=== PATIENT | male | born 1940 | race Caucasian/White ===

== ENCOUNTER → 2016-06-25 | Outpatient (CLI) | payer MEDICARE, OTHER ==
[~2016-06-25] MED LIST: ASPI81CH43 PO; CLOP75TA28 PO; DYA375C PO; LANS15CA21 PO; LORA-205 PO; RAMI2.5T PO; SIMV40TA96 PO
[2016-06-25 10:30] VITALS: BP 141/90
[2016-06-25 10:55] VITALS: BP 133/84
[2016-06-25 16:32] LABS: Basophils # (auto) 0 uL; Basophils % (auto) 0.5 % (0.0-2.0); Eosinophils # (auto) 0.1 uL; Hematocrit 41.7 % (41.0-53.0); Hemoglobin 13.9 g/dL (13.5-17.5); Lymphocytes # (auto) 1.3 uL; Lymphocytes % (auto) 26.9 % (10.0-50.0); Mean Corpuscular Hemoglobin 31.9 pg (28.0-32.0); Mean Corpuscular Hgb Conc. 33.4 g/dL (32.0-36.0); Mean Corpuscular Volume 95.4 fL (80.0-100.0); Mean Platelet Volume 8.6 fL (7.4-10.4); Monocytes # (auto) 0.5 uL; Monocytes % (auto) 11.2 % (0.0-12.0); Neutrophils # (auto) 2.8 uL; Neutrophils % (auto) 59.4 % (37.0-80.0); Platelet Count (auto) 239 10^3/uL (140-450); Red Cell Distribution Width 13.3 % (11.6-16.0); White Blood Cell 4.7 10^3/uL (4.4-10.8)
[2016-06-25 16:41] LABS: BUN/Creatinine Ratio 21.4; Calcium 9.4 mg/dL (8.5-10.1)
[2016-06-25 16:52] LABS: INR 1.04 (0.9-1.15); Prothrombin Time 10.7 sec (9.37-12.3)
== END | disposition home or self-care (01) ==
LOC: Rad HDHVI 10:13
PROVIDERS: ATTEND Internal Medicine Cardiovascular Disease
DX: I10 Essential (primary) hypertension (principal); D64.9 Anemia, unspecified; R79.1 Abnormal coagulation profile
CPT/HCPCS: 36415; 71020; 80048; 85025; 85610; 85730; G0463

== ENCOUNTER → 2016-06-26 | Day surgery (SDC) | payer MEDICARE, OTHER ==
[~2016-06-26] VITALS: Ht 182.9 cm; Wt 96.6 kg
[~2016-06-26] MED LIST changes: +ANGIOMAX 250 MG VIAL IV ONE; +LIDOCAINE 2%HCL (LOCAL ANESTH.) INJ 20ML MDV ONE; +MIDAZOLAM HCL 1MG/1ML-2 ML VIAL ONE; +SODIUM CHL 0.9% 0 ML ONE; +fentaNYL CITRATE 100 MCG/2 ML VL ONE
== END | disposition home or self-care (01) ==
LOC: CATH 10:58
PROVIDERS: ATTEND Internal Medicine Cardiovascular Disease
DX: I70.1 Atherosclerosis of renal artery (principal); T82.897A Other specified complication of cardiac prosthetic devices, implants and grafts, initial encounter; F10.99 Alcohol use, unspecified with unspecified alcohol-induced disorder; Z87.891 Personal history of nicotine dependence
CPT/HCPCS: 36252; C1760; C1769; C1894; J2250; J3010

== ENCOUNTER → 2016-08-04 | Outpatient (CLI) | payer MEDICARE, OTHER ==
[~2016-08-04] MED LIST changes: -ANGIOMAX 250 MG VIAL IV ONE; -LIDOCAINE 2%HCL (LOCAL ANESTH.) INJ 20ML MDV ONE; -MIDAZOLAM HCL 1MG/1ML-2 ML VIAL ONE; -SODIUM CHL 0.9% 0 ML ONE; -fentaNYL CITRATE 100 MCG/2 ML VL ONE
[2016-08-04 11:50] VITALS: BP 128/89
[2016-08-04 12:25] VITALS: BP 134/88
[2016-08-04 17:42] LABS: Basophils # (auto) 0 uL; Basophils % (auto) 0.4 % (0.0-2.0); Eosinophils # (auto) 0.1 uL; Monocytes # (auto) 0.6 uL; Neutrophils # (auto) 3.1 uL; Red Cell Distribution Width 13.9 % (11.6-16.0); White Blood Cell 5.1 10^3/uL (4.4-10.8)
[2016-08-04 17:45] LABS: Urine Bilirubin Negative (Negative); Urine Blood Negative /uL (Negative); Urine Color Yellow (Yellow); Urine Glucose Normal (Normal); Urine Ketone Negative (Negative); Urine Nitrite Negative (Negative); Urine Urobilinogen Normal (Negative); Urine pH 5.5 (5.0-8.0)
[2016-08-04 17:50] LABS: Eosinophils % (auto) 2.2 % (0.0-7.0); Hemoglobin 13.8 g/dL (13.5-17.5); Lymphocytes # (auto) 1.4 uL; Lymphocytes % (auto) 26.8 % (10.0-50.0); Mean Corpuscular Hemoglobin 31.7 pg (28.0-32.0); Mean Corpuscular Hgb Conc. 32.9 g/dL (32.0-36.0); Mean Corpuscular Volume 96.3 fL (80.0-100.0); Mean Platelet Volume 8.9 fL (7.4-10.4); Monocytes % (auto) 10.9 % (0.0-12.0); Neutrophils % (auto) 59.7 % (37.0-80.0); Platelet Count (auto) 254 10^3/uL (140-450)
[2016-08-04 17:56] LABS: Partial Thromboplastin Time 25.2 sec (22.64-33.71); Prothrombin Time 10.3 sec (9.37-12.3)
[2016-08-04 18:57] LABS: Albumin 3.9 g/dL (3.4-5.0); BUN/Creatinine Ratio 20.2; Calcium 9.1 mg/dL (8.5-10.1); Potassium 3.7 mmol/L (3.5-5.1)
[2016-08-04 18:59] LABS: Bilirubin, Total 0.5 mg/dL (0.2-1.0); Total Protein 7.7 g/dL (6.4-8.2)
== END | disposition home or self-care (01) ==
LOC: Rad HDHVI 11:49
PROVIDERS: ATTEND Internal Medicine Cardiovascular Disease
DX: I25.10 Atherosclerotic heart disease of native coronary artery without angina pectoris (principal); I10 Essential (primary) hypertension; R49.1 Aphonia; D64.9 Anemia, unspecified; N39.0 Urinary tract infection, site not specified; H25.12 Age-related nuclear cataract, left eye; Z79.01 Long term (current) use of anticoagulants
CPT/HCPCS: 36415; 80053; 81003; 85025; 85610; 85730; 87086; G0463

== ENCOUNTER → 2016-08-25 | Outpatient (CLI) | payer MEDICARE, OTHER ==
[2016-08-25 13:11] LABS: BUN/Creatinine Ratio 19.1; Calcium 9.1 mg/dL (8.5-10.1); Potassium 3.9 mmol/L (3.5-5.1); Uric Acid 5.7 mg/dL (3.5-7.2)
== END | disposition home or self-care (01) ==
LOC: CHF HDHVI 09:51
PROVIDERS: ATTEND Internal Medicine Cardiovascular Disease
DX: I10 Essential (primary) hypertension (principal); M10.9 Gout, unspecified
CPT/HCPCS: 36415; 80048; 84550; G0463

== ENCOUNTER → 2016-10-03 | Outpatient (CLI) | payer MEDICARE, OTHER ==
[2016-10-03 16:38] LABS: BUN/Creatinine Ratio 20.4; Calcium 9.6 mg/dL (8.5-10.1); Potassium 3.8 mmol/L (3.5-5.1); Uric Acid 3.4 mg/dL (3.5-7.2)
== END | disposition home or self-care (01) ==
LOC: LAB 10:03
PROVIDERS: ATTEND Internal Medicine Cardiovascular Disease
DX: I10 Essential (primary) hypertension (principal); M10.9 Gout, unspecified
CPT/HCPCS: 36415; 80048; 84550

== ENCOUNTER → 2016-12-30 | Outpatient (CLI) | payer MEDICARE, OTHER | END | disposition home or self-care (01) | LOC: Rad HDHVI 16:05 | PROVIDERS: ATTEND Internal Medicine Cardiovascular Disease | DX: I50.43 Acute on chronic combined systolic (congestive) and diastolic (congestive) heart failure (principal); E78.00 Pure hypercholesterolemia, unspecified | CPT/HCPCS: 93306 ==

== ENCOUNTER → 2017-01-02 | Outpatient (CLI) | payer MEDICARE, OTHER ==
[~2017-01-02] MED LIST changes: +ADENOSINE 79 MG in GIVE UN-DILUTED 0 ML IV ONE; +ADENOSINE 90 MG/30 ML INJ IV ONE
== END | disposition home or self-care (01) ==
LOC: Rad HDHVI 09:37
PROVIDERS: ATTEND Internal Medicine Cardiovascular Disease
DX: I25.10 Atherosclerotic heart disease of native coronary artery without angina pectoris (principal); E78.00 Pure hypercholesterolemia, unspecified; I25.2 Old myocardial infarction; I10 Essential (primary) hypertension
CPT/HCPCS: 78452; 93005; 96374; 96375; A9500; J0153

== ENCOUNTER → 2018-09-06 | Outpatient (CLI) | payer MEDICARE, OTHER ==
[~2018-09-06] MED LIST changes: -ADENOSINE 79 MG in GIVE UN-DILUTED 0 ML IV ONE; -ADENOSINE 90 MG/30 ML INJ IV ONE
== END | disposition home or self-care (01) ==
LOC: Rad HDHVI 13:58
PROVIDERS: ATTEND Internal Medicine Cardiovascular Disease
DX: I11.0 Hypertensive heart disease with heart failure (principal); I50.9 Heart failure, unspecified
CPT/HCPCS: 93306

== ENCOUNTER → 2018-10-25 | Outpatient (CLI) | payer MEDICARE, BC ==
[~2018-10-25] VITALS: Ht 182.9 cm; Wt 92.1 kg
== END | disposition home or self-care (01) ==
LOC: Rad HDHVI 13:50
PROVIDERS: ATTEND Internal Medicine Cardiovascular Disease
DX: I20.9 Angina pectoris, unspecified (principal); R00.2 Palpitations
CPT/HCPCS: 78452; 93017; 96374; A9500

== ENCOUNTER → 2019-02-25 | Outpatient (CLI) | payer MEDICARE, BC ==
[2019-02-25 15:42] LABS: Basophils # (auto) 0 uL; Basophils % (auto) 0.7 % (0.0-2.0); Eosinophils # (auto) 0.1 uL; Eosinophils % (auto) 2.6 % (0.0-7.0); Hematocrit 43.8 % (41.0-53.0); Hemoglobin 14.8 g/dL (13.5-17.5); Lymphocytes # (auto) 1.2 uL; Lymphocytes % (auto) 28.6 % (10.0-50.0); Mean Corpuscular Hemoglobin 33.2 pg (28.0-32.0); Mean Corpuscular Hgb Conc. 33.7 g/dL (32.0-36.0); Mean Corpuscular Volume 98.4 fL (80.0-100.0); Monocytes # (auto) 0.6 uL; Neutrophils # (auto) 2.2 uL; Neutrophils % (auto) 53.1 % (37.0-80.0); Nucleated Red Blood Cells % 0.1 %; Platelet Count (auto) 179 10^3/uL (140-450); Red Blood Cells 4.45 10^6/uL (4.5-5.90); Red Cell Distribution Width 13.7 % (11.8-14.3); White Blood Cell 4.2 10^3/uL (4.4-10.8)
[2019-02-25 16:13] LABS: Albumin 3.9 g/dL (3.4-5.0); BUN/Creatinine Ratio 27.5; Bilirubin, Direct 0.2 mg/dL (0-0.2); Bilirubin, Total 0.7 mg/dL (0.2-1.0); Calcium 8.1 mg/dL (8.5-10.1); Total Protein 7.7 g/dL (6.4-8.2)
== END | disposition home or self-care (01) ==
LOC: LAB 10:42
PROVIDERS: ATTEND Internal Medicine Cardiovascular Disease
DX: E03.9 Hypothyroidism, unspecified (principal); K90.9 Intestinal malabsorption, unspecified; C61 Malignant neoplasm of prostate; E29.1 Testicular hypofunction; N39.0 Urinary tract infection, site not specified; Z79.899 Other long term (current) drug therapy
CPT/HCPCS: 36415; 80048; 80061; 80076; 82306; 83036; 84153; 84403; 84443; 85025

== ENCOUNTER → 2019-10-04 | Outpatient (CLI) | payer MEDICARE, BC ==
[~2019-10-04] VITALS: Ht 182.9 cm; Wt 87.5 kg
[~2019-10-04] MED LIST changes: +TESTOSTERONE CYPIONATE 200 MG/ML 1ML VIAL IM ONE
[2019-10-04 09:30] VITALS: BP 167/87
--- NOTE | 2019-10-04 09:30 | NUR ---
CHF PT ARRIVED TO THE [facility]F CLINIC FOR TESTOSTERONE INJ PER MD ORDER. PT MISSED LAST DOSE DUE TO SELF ISOLATION. A/O X4
[2019-10-04 09:45] VITALS: BP 128/83
--- NOTE | 2019-10-04 09:45 | NUR ---
Discharge Instructions See e-MAR for any mediations given with this visit. Patient education given on disease process. Patient verbalized understanding. Previous labs reviewed. Patient discharged in stable condition with after care instructions and follow up appointment. NOTE TESTOSTERONE IM ADMIN BY NIEVES QUINTERO
[2019-10-04 11:56] LABS: Basophils # (auto) 0 10 ^3/uL (0-0.2); Basophils % (auto) 0.6 % (0.0-2.0); Eosinophils # (auto) 0.1 10 ^3/uL (0-0.8); Eosinophils % (auto) 3.1 % (0.0-7.0); Hematocrit 42.8 % (41.0-53.0); Lymphocytes # (auto) 1.1 10 ^3/uL (0.4-5.4); Lymphocytes % (auto) 25.6 % (10.0-50.0); Mean Corpuscular Hemoglobin 33.9 pg (28.0-32.0); Mean Corpuscular Volume 96.9 fL (80.0-100.0); Monocytes # (auto) 0.6 10 ^3/uL (0-1.3); Monocytes % (auto) 12.8 % (0.0-12.0); Neutrophils # (auto) 2.5 10 ^3/uL (1.6-8.6); Neutrophils % (auto) 57.9 % (37.0-80.0); Nucleated Red Blood Cells % 0.1 %; Platelet Count (auto) 177 10^3/uL (140-450); Red Blood Cells 4.42 10^6/uL (4.5-5.90); Red Cell Distribution Width 13.8 % (11.8-14.3); White Blood Cell 4.4 10^3/uL (4.4-10.8)
[2019-10-04 11:57] LABS: Urine Blood Negative /uL (Negative); Urine Specific Gravity 1.024 (1.001-1.035)
[2019-10-04 12:06] LABS: Albumin 3.7 g/dL (3.4-5.0); Calcium 8.8 mg/dL (8.5-10.1); Potassium 3.6 mmol/L (3.5-5.1)
[2019-10-04 12:12] LABS: BUN/Creatinine Ratio 18.3; Bilirubin, Total 0.6 mg/dL (0.2-1.0); Total Protein 7.9 g/dL (6.4-8.2)
[2019-10-04 12:14] LABS: Free T4 (Free Thyroxine) 1.07 ng/dL (0.89-1.76)
== END | disposition home or self-care (01) ==
LOC: Rad HDHVI 07:56
PROVIDERS: ATTEND Internal Medicine Cardiovascular Disease
DX: C61 Malignant neoplasm of prostate (principal); Z00.00 Encounter for general adult medical examination without abnormal findings; E03.9 Hypothyroidism, unspecified; K90.9 Intestinal malabsorption, unspecified; E29.1 Testicular hypofunction; N39.0 Urinary tract infection, site not specified; D51.9 Vitamin B12 deficiency anemia, unspecified; Z79.899 Other long term (current) drug therapy
CPT/HCPCS: 36415; 78452; 80053; 80061; 81003; 82306; 82607; 83036; 84403; 84439; 84443; 85025; 93017; 96372; 96374; A9500; G0463; J1071

== ENCOUNTER → 2019-10-05 | Outpatient (CLI) | payer MEDICARE, BC ==
[~2019-10-05] MED LIST changes: -TESTOSTERONE CYPIONATE 200 MG/ML 1ML VIAL IM ONE
== END | disposition home or self-care (01) ==
LOC: Rad HDHVI 08:54
PROVIDERS: ATTEND Internal Medicine Cardiovascular Disease
DX: I25.10 Atherosclerotic heart disease of native coronary artery without angina pectoris (principal); I10 Essential (primary) hypertension; R06.02 Shortness of breath; G45.9 Transient cerebral ischemic attack, unspecified; R20.0 Anesthesia of skin
CPT/HCPCS: 93306

== ENCOUNTER → 2020-07-11 | Outpatient (CLI) | payer MEDICARE, BC ==
[~2020-07-11] MED LIST changes: -LANS15CA21 PO; +LANS15CA37 PO; +SIMV40TA2 PO; -SIMV40TA96 PO
== END | disposition home or self-care (01) ==
LOC: Rad HDHVI 09:39
PROVIDERS: ATTEND Internal Medicine Cardiovascular Disease
DX: I07.1 Rheumatic tricuspid insufficiency (principal); I25.10 Atherosclerotic heart disease of native coronary artery without angina pectoris; R06.02 Shortness of breath
CPT/HCPCS: 93306

== ENCOUNTER → 2020-07-24 | Outpatient (CLI) | payer MEDICARE, BC | END | disposition home or self-care (01) | LOC: Rad HDHVI 09:12 | PROVIDERS: ATTEND Internal Medicine Cardiovascular Disease | DX: I25.10 Atherosclerotic heart disease of native coronary artery without angina pectoris (principal); D68.9 Coagulation defect, unspecified | CPT/HCPCS: 93880 ==

== ENCOUNTER → 2020-08-06 | Outpatient (CLI) | payer MEDICARE, BC ==
[~2020-08-06] VITALS: Ht 182.9 cm; Wt 94.3 kg
== END | disposition home or self-care (01) ==
LOC: Rad HDHVI 13:12
PROVIDERS: ATTEND Internal Medicine Cardiovascular Disease
DX: I25.10 Atherosclerotic heart disease of native coronary artery without angina pectoris (principal); I10 Essential (primary) hypertension; E78.00 Pure hypercholesterolemia, unspecified; I25.2 Old myocardial infarction; Z82.49 Family history of ischemic heart disease and other diseases of the circulatory system
CPT/HCPCS: 78452; 93017; 96374; A9500

== ENCOUNTER → 2021-12-25 | Outpatient (CLI) | payer MEDICARE, BC ==
[~2021-12-25] MED LIST changes: -DYA375C PO; +TRIA37.56 PO
[2021-12-25 11:25] LABS: Urine Blood Negative /uL (Negative); Urine Specific Gravity 1.018 (1.001-1.035)
[2021-12-25 11:33] LABS: Basophils # (auto) 0 10 ^3/uL (0-0.2); Basophils % (auto) 0.4 % (0.0-2.0); Eosinophils # (auto) 0.1 10 ^3/uL (0-0.8); Eosinophils % (auto) 1.8 % (0.0-7.0); Hematocrit 44.4 % (41.0-53.0); Hemoglobin 14.7 g/dL (13.5-17.5); Lymphocytes % (auto) 24.3 % (10.0-50.0); Mean Corpuscular Hemoglobin 32.5 pg (28.0-32.0); Mean Corpuscular Hgb Conc. 33.1 g/dL (32.0-36.0); Mean Corpuscular Volume 98.4 fL (80.0-100.0); Monocytes # (auto) 0.5 10 ^3/uL (0-1.3); Monocytes % (auto) 11.1 % (0.0-12.0); Neutrophils # (auto) 2.7 10 ^3/uL (1.6-8.6); Neutrophils % (auto) 62.4 % (37.0-80.0); Nucleated Red Blood Cells % 0.1 %; Red Blood Cells 4.51 10^6/uL (4.5-5.90); Red Cell Distribution Width 13.7 % (11.8-14.3); White Blood Cell 4.3 10^3/uL (4.4-10.8)
[2021-12-25 11:38] LABS: Albumin 3.5 g/dL (3.4-5.0); Calcium 9.2 mg/dL (8.5-10.1); Potassium 4.3 mmol/L (3.5-5.1)
[2021-12-25 11:43] LABS: BUN/Creatinine Ratio 22.4; Bilirubin, Total 0.4 mg/dL (0.2-1.0); Total Protein 7.5 g/dL (6.4-8.2)
[2021-12-25 11:45] LABS: Free T4 (Free Thyroxine) 1.13 ng/dL (0.89-1.76); Prostate Specific Antigen 1.86 ng/mL (0.0-4.0)
== END | disposition home or self-care (01) ==
LOC: LAB 08:13
PROVIDERS: ATTEND Internal Medicine Cardiovascular Disease
DX: D51.3 Other dietary vitamin B12 deficiency anemia (principal); D64.9 Anemia, unspecified; E11.9 Type 2 diabetes mellitus without complications; E55.9 Vitamin D deficiency, unspecified; I10 Essential (primary) hypertension; R00.2 Palpitations; R53.1 Weakness; R30.0 Dysuria; C61 Malignant neoplasm of prostate
CPT/HCPCS: 36415; 80053; 80061; 81003; 82306; 82607; 83036; 84153; 84403; 84439; 84443; 85025

== ENCOUNTER → 2022-01-08 | Outpatient (CLI) | payer MEDICARE, BC ==
[~2022-01-08] VITALS: Ht 182.9 cm; Wt 97.1 kg
== END | disposition home or self-care (01) ==
LOC: Rad HDHVI 09:19
PROVIDERS: ATTEND Internal Medicine Cardiovascular Disease
DX: I25.10 Atherosclerotic heart disease of native coronary artery without angina pectoris (principal); I25.2 Old myocardial infarction; I10 Essential (primary) hypertension; E78.5 Hyperlipidemia, unspecified; Z82.49 Family history of ischemic heart disease and other diseases of the circulatory system
CPT/HCPCS: 78452; 93017; 96374; A9500

== ENCOUNTER → 2022-01-20 | Outpatient (CLI) | payer MEDICARE, BC | END | disposition home or self-care (01) | LOC: Rad HDHVI 08:46 | PROVIDERS: ATTEND Internal Medicine Cardiovascular Disease | DX: I35.8 Other nonrheumatic aortic valve disorders (principal); I71.2 Thoracic aortic aneurysm, without rupture; R07.89 Other chest pain; I10 Essential (primary) hypertension | CPT/HCPCS: 93306 ==

== ENCOUNTER → 2022-07-24 | Outpatient (CLI) | payer MEDICARE, BC | END | disposition home or self-care (01) | LOC: LAB 08:44 | PROVIDERS: ATTEND Internal Medicine Cardiovascular Disease | DX: R94.4 Abnormal results of kidney function studies (principal) | CPT/HCPCS: 36415; 82565; 84520 ==

== ENCOUNTER → 2022-07-25 | Outpatient (CLI) | payer MEDICARE, BC ==
[~2022-07-25] MED LIST changes: +READI-CAT 2 (BARIUM SULF)(VANILLA SMOOTHIE) 450ML ONE
== END | disposition home or self-care (01) ==
LOC: Rad HDHVI 09:04
PROVIDERS: ATTEND Internal Medicine Cardiovascular Disease
DX: K80.20 Calculus of gallbladder without cholecystitis without obstruction (principal); K59.09 Other constipation; I51.7 Cardiomegaly; I25.10 Atherosclerotic heart disease of native coronary artery without angina pectoris; I70.0 Atherosclerosis of aorta
CPT/HCPCS: 74176

== ENCOUNTER 2022-11-13 09:36 | Day surgery (SDC) | payer MEDICARE, BC ==
[2022-11-07 11:46] LABS: Basophils # (auto) 0 10 ^3/uL (0-0.2); Basophils % (auto) 0.4 % (0.0-2.0); Eosinophils # (auto) 0.1 10 ^3/uL (0-0.8); Hematocrit 42.6 % (41.0-53.0); Hemoglobin 14.4 g/dL (13.5-17.5); Lymphocytes # (auto) 1.5 10 ^3/uL (0.4-5.4); Lymphocytes % (auto) 26.3 % (10.0-50.0); Mean Corpuscular Hemoglobin 33.3 pg (28.0-32.0); Mean Corpuscular Hgb Conc. 33.9 g/dL (32.0-36.0); Mean Corpuscular Volume 98.3 fL (80.0-100.0); Monocytes # (auto) 0.7 10 ^3/uL (0-1.3); Monocytes % (auto) 12.6 % (0.0-12.0); Neutrophils # (auto) 3.3 10 ^3/uL (1.6-8.6); Neutrophils % (auto) 58.7 % (37.0-80.0); Nucleated Red Blood Cells % 0.1 %; Red Blood Cells 4.33 10^6/uL (4.5-5.90); White Blood Cell 5.7 10^3/uL (4.4-10.8)
[2022-11-07 11:52] LABS: Urine Bacteria NONE SEEN /hpf (None Seen); Urine Blood Negative /uL (Negative); Urine WBC <1 /hpf (0 - 3)
[2022-11-07 11:59] LABS: INR 0.99 (0.9-1.15); Partial Thromboplastin Time 26.5 sec (24.6-33.4)
[2022-11-07 12:51] LABS: Albumin 3.9 g/dL (3.4-5.0); Calcium 9.6 mg/dL (8.5-10.1); Potassium 4.1 mmol/L (3.5-5.1)
[2022-11-07 12:56] LABS: BUN/Creatinine Ratio 25.8 (10.0-20.0); Bilirubin, Total 0.6 mg/dL (0.2-1.0); Total Protein 7.9 g/dL (6.4-8.2)
[~2022-11-13] VITALS: Ht 182.9 cm; Wt 92.1 kg
[~2022-11-13 09:36] MED LIST changes: +ALL100T PO; -ASPI81CH43 PO; -LORA-205 PO; +OLME40TA78 PO; +PANT40TA2 PO; -RAMI2.5T PO; -READI-CAT 2 (BARIUM SULF)(VANILLA SMOOTHIE) 450ML ONE; -SIMV40TA2 PO; +SIMV40TA42 PO; -TRIA37.56 PO
[2022-11-13] MEDS ORDERED: MIDAZOLAM HCL 2MG/2ML 2ml VIAL (1mg/ml) ONE (11:08)
[2022-11-13] MEDS ORDERED: ONDANSETRON HCL 4 MG/2 ML VIAL ONE (11:08)
[2022-11-13] MEDS ORDERED: fentaNYL CITRATE 100 MCG/2 ML VL ONE (11:08)
[2022-11-13] MEDS ORDERED: PROPOFOL 10 MG/ML 20 ML IV ONE ×2 (11:09→11:29)
[2022-11-13] MEDS ORDERED: LIDOCAINE 2% (LOCAL ANESTH.) PF 5ml SDV ONE (11:30)
[2022-11-13] MEDS ORDERED: ONDANSETRON HCL 4 MG/2 ML VIAL IV PRN (11:45)
[2022-11-13 12:27] VITALS: BP 108/68
[2022-12-01] MEDS ORDERED: HYDR-4072 PO (16:22)
== END 2022-11-13 12:35 | disposition home or self-care (01) ==
LOC: GI 09:36
PROVIDERS: ATTEND Internal Medicine Gastroenterology
DX: K92.1 Melena (principal); K29.90 Gastroduodenitis, unspecified, without bleeding; K57.30 Diverticulosis of large intestine without perforation or abscess without bleeding; K64.8 Other hemorrhoids; K63.89 Other specified diseases of intestine; I10 Essential (primary) hypertension; I25.2 Old myocardial infarction; E78.5 Hyperlipidemia, unspecified; M10.9 Gout, unspecified; K21.9 Gastro-esophageal reflux disease without esophagitis; Z95.5 Presence of coronary angioplasty implant and graft; Z91.041 Radiographic dye allergy status; Z87.891 Personal history of nicotine dependence; Z82.49 Family history of ischemic heart disease and other diseases of the circulatory system; Z85.828 Personal history of other malignant neoplasm of skin; Z79.899 Other long term (current) drug therapy; Z98.890 Other specified postprocedural states
CPT/HCPCS: 36415; 43239; 45378; 80053; 81001; 85025; 85610; 85730; 88305; 88342; J2001; J2250; J2405; J2704; J3010; J7030

== ENCOUNTER → 2022-12-02 | Outpatient (CLI) | payer MEDICARE, BC ==
[~2022-12-02] MED LIST changes: +AMOX250C3 PO; +DexAMETHasone SOD PHOS 10MG/1ML VIAL INJ ONE; +ETOMIDATE (2MG/ML) 20ML VIAL IV ONE; +GLYCOPYRROLATE 0.2 MG/ML 1ML VIAL ONE; +HYDR-4072 PO; +HYDROmorphone HCL 2 MG/ML VL/or syr ONE; +KETOROLAC TROMETH 30 MG/ML 1ML VIAL ONE; -LANS15CA37 PO; +LIDOCAINE 2% (LOCAL ANESTH.) PF 5ml SDV ONE; +MEPERIDINE HCL (50 MG/ML) 1 ML VIAL ONE; +MIDAZOLAM HCL 2MG/2ML 2ml VIAL (1mg/ml) ONE; +ONDANSETRON HCL 4 MG/2 ML VIAL ONE; +PROPOFOL 10 MG/ML 20 ML IV ONE; +RIFA1CAP5 PO; +ePHEDrine SULFATE 50 MG/ML AMP ONE; +fentaNYL CITRATE 100 MCG/2 ML VL ONE
== END | disposition home or self-care (01) ==
LOC: Rad HDHVI 08:36
PROVIDERS: ATTEND Internal Medicine Cardiovascular Disease
DX: I08.0 Rheumatic disorders of both mitral and aortic valves (principal); R06.02 Shortness of breath; I10 Essential (primary) hypertension
CPT/HCPCS: 93306

== ENCOUNTER 2022-12-03 09:45 | Inpatient (IN) | payer BC, MEDICARE ==
[2022-12-01 09:59] LABS: Basophils # (auto) 0 10 ^3/uL (0-0.2); Basophils % (auto) 0.3 % (0.0-2.0); Eosinophils # (auto) 0.1 10 ^3/uL (0-0.8); Eosinophils % (auto) 1.6 % (0.0-7.0); Hematocrit 41.5 % (41.0-53.0); Hemoglobin 14.4 g/dL (13.5-17.5); Lymphocytes # (auto) 1.2 10 ^3/uL (0.4-5.4); Lymphocytes % (auto) 21.6 % (10.0-50.0); Mean Corpuscular Hemoglobin 33.5 pg (28.0-32.0); Mean Corpuscular Hgb Conc. 34.6 g/dL (32.0-36.0); Mean Corpuscular Volume 96.9 fL (80.0-100.0); Monocytes # (auto) 0.6 10 ^3/uL (0-1.3); Neutrophils # (auto) 3.9 10 ^3/uL (1.6-8.6); Neutrophils % (auto) 66.5 % (37.0-80.0); Red Blood Cells 4.29 10^6/uL (4.5-5.90); Red Cell Distribution Width 13.7 % (11.8-14.3); White Blood Cell 5.8 10^3/uL (4.4-10.8)
[2022-12-01 10:06] LABS: Urine Bacteria NONE SEEN /hpf (None Seen); Urine Blood Negative /uL (Negative); Urine Specific Gravity 1.006 (1.001-1.035); Urine Sperm PRESENT /hpf (None Seen); Urine WBC <1 /hpf (0 - 3)
[2022-12-01 10:18] LABS: INR 1.01 (0.9-1.15); Partial Thromboplastin Time 26.5 sec (24.6-33.4)
[2022-12-01 10:49] LABS: Albumin 3.9 g/dL (3.4-5.0); Calcium 9.5 mg/dL (8.5-10.1); Potassium 4.8 mmol/L (3.5-5.1)
[2022-12-01 10:55] LABS: BUN/Creatinine Ratio 22.7 (10.0-20.0); Bilirubin, Total 0.6 mg/dL (0.2-1.0); Total Protein 7.8 g/dL (6.4-8.2)
[~2022-12-03] VITALS: Ht 182.9 cm; Wt 97.2 kg
[~2022-12-03 09:45] MED LIST changes: -AMOX250C3 PO; +BUPIVACAINE IMPLANT 3x100mg IL ONE; -DexAMETHasone SOD PHOS 10MG/1ML VIAL INJ ONE; -ETOMIDATE (2MG/ML) 20ML VIAL IV ONE; -GLYCOPYRROLATE 0.2 MG/ML 1ML VIAL ONE; -HYDROmorphone HCL 2 MG/ML VL/or syr ONE; -KETOROLAC TROMETH 30 MG/ML 1ML VIAL ONE; -LIDOCAINE 2% (LOCAL ANESTH.) PF 5ml SDV ONE; -MEPERIDINE HCL (50 MG/ML) 1 ML VIAL ONE; -MIDAZOLAM HCL 2MG/2ML 2ml VIAL (1mg/ml) ONE; -ONDANSETRON HCL 4 MG/2 ML VIAL ONE; -PROPOFOL 10 MG/ML 20 ML IV ONE; -RIFA1CAP5 PO; -ePHEDrine SULFATE 50 MG/ML AMP ONE; -fentaNYL CITRATE 100 MCG/2 ML VL ONE
[2022-12-03] MEDS ORDERED: ceFAZolin 1GM/50ML 50 ML IV ONE ×2 (09:59→10:56)
[2022-12-03] MEDS ORDERED: BUPIVACAINE 0.25% INJ 50ML VIAL ONE (12:29)
[2022-12-03] MEDS ORDERED: FAMOTIDINE (10MG/ML) 2ML VL IV ONE (12:45)
[2022-12-03] MEDS ORDERED: ONDANSETRON HCL 4 MG/2 ML VIAL IV PRN ×2 (14:30)
[2022-12-03] MEDS ORDERED: HYDROmorphone HCL 2 MG/ML VL/or syr IV PRN ×2 (14:30)
[2022-12-03] MEDS ORDERED: SODIUM CHLORIDE 0.9% 1,000 ML IV SCH (15:00)
[2022-12-03] MEDS ORDERED: PANTOPRAZOLE 40 MG TAB PO SCH (15:03)
[2022-12-03] MEDS: SODIUM CHLORIDE 0.9% 1,000 ML IV SCH (15:55)
[2022-12-03 18:36] VITALS: BP 123/73
[2022-12-03] MEDS ORDERED: AMOX250C3 PO (18:41)
[2022-12-03] MEDS ORDERED: RIFA1CAP5 PO (18:41)
[2022-12-03 22:00] VITALS: BP 122/70
[2022-12-03] MEDS ORDERED: ATORVASTATIN 20 MG TAB PO SCH (22:00)
[2022-12-03] MEDS: DOCUSATE SOD 100 MG CAP PO SCH (22:14)
[2022-12-03] MEDS: ceFAZolin 1GM/50ML 50 ML IV SCH ×2 (22:56→23:56)
[2022-12-03] MEDS: HYDROcodone-ACET 10/325MG TAB PO PRN (22:57)
[2022-12-04 05:00] VITALS: BP 108/63
[2022-12-04 08:00] VITALS: BP 104/64
[2022-12-04] MEDS: HYDROcodone-ACET 10/325MG TAB PO PRN ×2 (09:07→20:59)
[2022-12-04] MEDS: DOCUSATE SOD 100 MG CAP PO SCH (09:08)
[2022-12-04] MEDS ORDERED: LOSARTAN POTASSIUM 50 MG TAB PO SCH (10:00)
[2022-12-04] MEDS ORDERED: PANTOPRAZOLE 40 MG TAB PO SCH (10:00)
[2022-12-04] MEDS ORDERED: ALLOPURINOL 300 MG TAB PO SCH (10:00)
[2022-12-04] MEDS: SODIUM CHLORIDE 0.9% 1,000 ML IV SCH (10:45)
[2022-12-04 12:00] VITALS: BP 124/58
[2022-12-04] MEDS: ceFAZolin 1GM/50ML 50 ML IV SCH (13:46)
[2022-12-04 16:00] VITALS: BP 134/65
== END 2022-12-04 21:11 | disposition home or self-care (01) | DRG 352 ==
LOC: SUR 09:45 → TELE 14:40 → TELE-WESTW 16:57
PROVIDERS: ADMIT Internal Medicine Cardiovascular Disease; ATTEND Surgery
PROC: 0YQ50ZZ Repair Right Inguinal Region, Open Approach (ICD-10-PCS; principal; 2022-12-03 12:52)
DX: K40.90 Unilateral inguinal hernia, without obstruction or gangrene, not specified as recurrent (principal); I10 Essential (primary) hypertension; E78.5 Hyperlipidemia, unspecified; K21.00 Gastro-esophageal reflux disease with esophagitis, without bleeding; M10.9 Gout, unspecified
CPT/HCPCS: 36415; 80053; 81001; 85025; 85610; 85730; 86850; 86900; 86901; 93306; C1781; G0378; J0690; J1100; J1885; J2001; J2250; J2405; J2704; J3490

== ENCOUNTER → 2022-12-16 | Outpatient (CLI) | payer MEDICARE, BC ==
[~2022-12-16] MED LIST changes: +AMOX250C3 PO; -BUPIVACAINE IMPLANT 3x100mg IL ONE; +RIFA1CAP5 PO
== END | disposition home or self-care (01) ==
LOC: Rad HDHVI 15:24
PROVIDERS: ATTEND Internal Medicine Cardiovascular Disease
DX: M19.041 Primary osteoarthritis, right hand (principal); M79.641 Pain in right hand; M25.741 Osteophyte, right hand
CPT/HCPCS: 73130

== ENCOUNTER → 2023-07-02 | Outpatient (CLI) | payer MEDICARE, BC ==
[2023-07-02 11:00] LABS: Basophils # (auto) 0 10 ^3/uL (0-0.2); Basophils % (auto) 0.3 % (0.0-2.0); Eosinophils # (auto) 0.1 10 ^3/uL (0-0.8); Hematocrit 41.6 % (41.0-53.0); Lymphocytes # (auto) 1.3 10 ^3/uL (0.4-5.4); Lymphocytes % (auto) 23.6 % (10.0-50.0); Mean Corpuscular Hemoglobin 33.4 pg (28.0-32.0); Mean Corpuscular Hgb Conc. 33.7 g/dL (32.0-36.0); Mean Corpuscular Volume 98.9 fL (80.0-100.0); Monocytes # (auto) 0.5 10 ^3/uL (0-1.3); Monocytes % (auto) 10.2 % (0.0-12.0); Neutrophils # (auto) 3.5 10 ^3/uL (1.6-8.6); Neutrophils % (auto) 64.9 % (37.0-80.0); Red Blood Cells 4.21 10^6/uL (4.5-5.90); Red Cell Distribution Width 13.1 % (11.8-14.3); White Blood Cell 5.4 10^3/uL (4.4-10.8)
[2023-07-02 11:06] LABS: Urine Blood Negative /uL (Negative); Urine Clarity Clear (Clear); Urine Color Yellow (Yellow); Urine Protein, UAD TRACE (Negative); Urine Specific Gravity 1.025 (1.001-1.035); Urine Urobilinogen Normal (Negative); Urine pH 5.5 (5.0-8.0)
[2023-07-02 11:25] LABS: Alanine Aminotransferase 20 U/L (7-40); Albumin 4.7 g/dL (3.2-4.8); Alkaline Phosphatase 87 U/L (46-116); Anion Gap 8 (5-15); Aspartate Aminotransferase 22 U/L (13-40); BUN/Creatinine Ratio 17.3 (10.0-20.0); Bilirubin, Direct 0.3 mg/dL (<0.3); Bilirubin, Total 0.9 mg/dL (0.2-1.0); Blood Urea Nitrogen 19 mg/dL (9-23); Carbon Dioxide 26 mmol/L (20-30); Chloride 107 mmol/L (98-107); Cholesterol 181 mg/dL (< 200); Glucose 95 mg/dL (74-106); HDL Cholesterol 64 mg/dL (40-59); LDL Cholesterol 100 mg/dL (< 100); Potassium 4.3 mmol/L (3.5-5.1); Sodium 141 mmol/L (136-145); Total Protein 7.6 g/dL (5.7-8.2); Triglycerides 83 mg/dL (< 150)
== END | disposition home or self-care (01) ==
LOC: LAB 10:07
PROVIDERS: ATTEND Internal Medicine Cardiovascular Disease
DX: E11.9 Type 2 diabetes mellitus without complications (principal); I10 Essential (primary) hypertension; D51.3 Other dietary vitamin B12 deficiency anemia; D64.9 Anemia, unspecified; Z79.899 Other long term (current) drug therapy
CPT/HCPCS: 36415; 80048; 80061; 80076; 81003; 82306; 83036; 84403; 84443; 85025

== ENCOUNTER → 2023-12-07 | Outpatient (CLI) | payer MEDICARE, BC | END | disposition home or self-care (01) | LOC: Rad HDHVI 08:46 | PROVIDERS: ATTEND Internal Medicine Cardiovascular Disease | DX: I08.0 Rheumatic disorders of both mitral and aortic valves (principal); I77.810 Thoracic aortic ectasia; R07.89 Other chest pain; I10 Essential (primary) hypertension | CPT/HCPCS: 93306 ==

== ENCOUNTER → 2023-12-11 | Outpatient (CLI) | payer MEDICARE, BC ==
[~2023-12-11] VITALS: Ht 182.9 cm; Wt 93.4 kg
== END | disposition home or self-care (01) ==
LOC: Rad HDHVI 08:43
PROVIDERS: ATTEND Internal Medicine Cardiovascular Disease
DX: I25.10 Atherosclerotic heart disease of native coronary artery without angina pectoris (principal); I10 Essential (primary) hypertension; Z82.49 Family history of ischemic heart disease and other diseases of the circulatory system
CPT/HCPCS: 78452; 93017; 96374; A9500

== ENCOUNTER → 2024-04-11 | Outpatient (CLI) | payer MEDICARE, BC ==
[~2024-04-11] MED LIST changes: +LATA0.0020 EACHEYE; +NITR0.4S29 SL; +OLME20TA67 PO; +TRIA37.587 PO
[2024-04-11 13:05] VITALS: BP 145/83; PULSE 70; RESP 18; O2SAT 94
[2024-04-11 13:15] VITALS: BP 138/82; PULSE 70; RESP 18; O2SAT 94
== END | disposition home or self-care (01) ==
LOC: Rad HDHVI 13:01
PROVIDERS: ATTEND Internal Medicine Cardiovascular Disease
DX: Z01.811 Encounter for preprocedural respiratory examination (principal); R07.9 Chest pain, unspecified
CPT/HCPCS: 71046; 93005; G0463

== ENCOUNTER 2024-04-14 07:00 | Day surgery (SDC) | payer MEDICARE, BC ==
[2024-04-11 14:59] LABS: Basophils # (auto) 0 10 ^3/uL (0-0.2); Basophils % (auto) 0.4 % (0.0-2.0); Eosinophils # (auto) 0.1 10 ^3/uL (0-0.8); Eosinophils % (auto) 1.5 % (0.0-7.0); Hematocrit 38.3 % (41.0-53.0); Hemoglobin 12.9 g/dL (13.5-17.5); Lymphocytes # (auto) 1.2 10 ^3/uL (0.4-5.4); Lymphocytes % (auto) 19.6 % (10.0-50.0); Mean Corpuscular Hemoglobin 33.3 pg (28.0-32.0); Mean Corpuscular Hgb Conc. 33.8 g/dL (32.0-36.0); Mean Corpuscular Volume 98.7 fL (80.0-100.0); Monocytes # (auto) 0.7 10 ^3/uL (0-1.3); Monocytes % (auto) 11.2 % (0.0-12.0); Neutrophils % (auto) 67.3 % (37.0-80.0); Nucleated Red Blood Cells % 0.1 %; Platelet Count (auto) 235 10^3/uL (140-450); Red Blood Cells 3.88 10^6/uL (4.5-5.90); Red Cell Distribution Width 14.3 % (11.8-14.3); White Blood Cell 5.9 10^3/uL (4.4-10.8)
[2024-04-11 15:16] LABS: INR 1.06 (0.9-1.15); Partial Thromboplastin Time 25.3 SEC (24.5-34.5); Prothrombin Time 11.2 sec (9.3-11.8)
[2024-04-11 15:43] LABS: Chloride 108 mmol/L (98-107); Potassium 4.5 mmol/L (3.5-5.1); Sodium 139 mmol/L (136-145)
[2024-04-11 15:44] LABS: Anion Gap 5 (5-15); Calcium 10.2 mg/dL (8.7-10.4); Carbon Dioxide 26 mmol/L (20-31)
[2024-04-11 15:49] LABS: BUN/Creatinine Ratio 21.8 (10.0-20.0); Blood Urea Nitrogen 29 mg/dL (9-23); Glucose 102 mg/dL (74-106)
[2024-04-14] VITALS (8 sets, daily range): BP systolic 94–116; BP diastolic 57–80; PULSE 52–86; RESP 14–20; TEMP 98; O2SAT 93–96
[~2024-04-14] VITALS: Ht 182.9 cm; Wt 94.3 kg
[~2024-04-14 07:00] MED LIST changes: -AMOX250C3 PO; -RIFA1CAP5 PO
[2024-04-14] MEDS ORDERED: IODIXANOL 320MG/ML 100ML BTL IV ONE (07:50)
[2024-04-14] MEDS ORDERED: ANGIOMAX 250 MG VIAL IV ONE (10:06)
[2024-04-14] MEDS ORDERED: fentaNYL CITRATE 100 MCG/2 ML VL ONE (10:07)
[2024-04-14] MEDS ORDERED: LIDOCAINE 2%HCL (LOCAL ANESTH.) INJ 20ML MDV ONE (10:07)
[2024-04-14] MEDS ORDERED: MIDAZOLAM HCL 2MG/2ML 2ml VIAL (1mg/ml) ONE (10:07)
[2024-04-14] MEDS ORDERED: SODIUM CHL 0.9% 50 ML ONE (10:07)
[2024-04-14] MEDS ORDERED: CLOPIDOGREL BISULFATE 75 MG TAB ONE (11:06)
== END 2024-04-14 14:24 | disposition home or self-care (01) ==
LOC: CATH 07:00
PROVIDERS: ATTEND Internal Medicine Cardiovascular Disease
DX: I25.10 Atherosclerotic heart disease of native coronary artery without angina pectoris (principal); I25.84 Coronary atherosclerosis due to calcified coronary lesion; R93.1 Abnormal findings on diagnostic imaging of heart and coronary circulation; I10 Essential (primary) hypertension; Z95.5 Presence of coronary angioplasty implant and graft; Z82.49 Family history of ischemic heart disease and other diseases of the circulatory system; Z82.3 Family history of stroke; Z82.0 Family history of epilepsy and other diseases of the nervous system
CPT/HCPCS: 36415; 75580; 80048; 85025; 85610; 85730; 92973; 93458; C1725; C1760; C1769; C1874; C1887; C1894; C9600; J0583; J1644; J2250; J3010; J7030; Q9967; 93571; 99152; 99153

== ENCOUNTER 2024-04-15 08:02 | Inpatient (IN) | payer MEDICARE, BC ==
[~2024-04-15] VITALS: Ht 177.8 cm; Wt 99.8 kg
--- NOTE | 2024-04-15 08:25 | ED.PDOC ---
HPI (NEURO) HPI Comments 83y M who presents to the ED for chief complaint of R sided weakness. Pt states he woke up this AM and states he has has been having R sided weakness specifically with his R arm. Pt is noted to have a tremor like sensation noted to the R arm but no noted deficits are seen otherwise. Pt is noted to have equal senior program planner and no noted changes in vision, gait or speech are noted. Pt is alert and oriented x 4 in the ED and able to answer all questions. Per pt daughter, pt has surgery yesterday with stent placed in heart and daughter states procedure was performed while inserting stent through R groin. Pt otherwise denies headache, dizziness, nausea, vomiting, chest pain, shortness of breath, fever, cough, or chills. Pt otherwise denies any other symptoms at this time. Chief Complaint: R sided weakness Time Seen by MD: 08:23 Primary Care Provider: RANDY Hester Notes: Medications, Allergies Information Source: Patient, Relative Mode of Arrival: Ambulatory Brought in by: daughter Past Medical History PAST MEDICAL HISTORY: CAD, GERD, High Lipids, HTN, CO Surgical History: PTCA Family History Family History: Unknown Social History Smoker: Non-Smoker Alcohol: Rarely Drugs: Denies Drug Use Lives In: Home Constitutional: denies: chills, diaphoresis, fatigue, fever, malaise, sweats, weakness, others EENTM: denies: blurred vision, double vision, ear bleeding, ear discharge, ear drainage, ear pain, ear ringing, eye pain, eye redness, hearing loss, mouth pain, mouth swelling, nasal discharge, nose bleeding, nose congestion, nose pain, photophobia, tearing, throat pain, throat swelling, voice changes, others Respiratory: denies: cough, hemoptysis, orthopnea, SOB at rest, shortness of breath, SOB with excertion, stridor, wheezing, others Cardiovascular: denies: chest pain, dizzy spells, diaphoresis, Dyspnea on exertion, edema, irregular heart beat, left arm pain, lightheadedness, palpitations, PND, syncope, others Gastrointestinal: denies: abdomen distended, abdominal pain, blood streaked bowels, constipated, diarrhea, dysphagia, difficulty swallowing, hematemesis, melena, nausea, poor appetite, poor fluid intake, rectal bleeding, rectal pain, vomiting, others Genitourinary: denies: burning, dysuria, flank pain, frequency, hematuria, incontinence, penile discharge, penile sore, pain, testicle pain, testicle swelling, urgency, others Neurological: reports: right sided weakness, tremors; denies: dizziness, fainting, headache, left sided numbness, left sided weakness, numbness, paresthesia, pre-existing deficit, right sided numbness, seizure, speech problems, tingling, weakness, others Musculoskeletal: denies: back pain, gout, joint pain, joint swelling, muscle pain, muscle stiffness, neck pain, others Integumetry: denies: bruises, change in color, change in hair/nails, dryness, laceration, lesions, lumps, rash, wounds, others Allergic/Immunocompromised: denies: Difficulty Healing, Frequent Infections, Hives, Itching, others Hematologic/Lymphatic: denies: anemia, blood clots, easy bleeding, easy bruising, swollen glands, others Endocrine: denies: excessive hunger, excessive sweating, excessive thirst, excessive urination, flushing, intolerance to cold, intolerance to heat, unexplained weight gain, unexplained weight loss, others Psychiatric: denies: anxiety, bipolar disorder, depression, hopeless, panic disorder, schizophrenia, sleepless, suicidal, others All Other Systems: Reviewed and Negative Physical Exam General Appearance: Moderate Distress HEENT: Normal ENT Inspection, Pharynx Normal, TMs Normal Neck: Full Range of Motion, Non-Tender, Normal, Normal Inspection Respiratory: Chest Non-Tender, Lungs Clear, No Accessory Muscle Use, No Respiratory Distress, Normal Breath Sounds Cardiovascular: No Edema, No JVD, No Murmur, No Gallop, Normal Peripheral Pulses, Regular Rate/Rhythm Breast Exam: Deferred Gastrointestinal: No Organomegaly, Non Tender, No Pulsatile Mass, Normal Bowel Sounds, Soft Genitalia: Deferred Pelvic: Deferred Rectal: Deferred Extremities: Other (Decreased strength right upper extremity good strength lower extremity) Musculoskeletal : Apperance: Normal Neurologic: Other (Right upper extremity flaccid) Cerebellar Function: Normal Reflexes: Normal Skin: Dry, Normal Color, Warm Peripheral Pulses: 3+ Radial (R), 3+ Radial (L) Lymphatic: No Adenopathy Was a procedure done? Was a procedure done?: No Differential Diagnosis (SZ) Seizure: Closed Head Injury, CVA/TIA General Weakness: Anemia, CVA, Dehydration, Dysrhythmia, Electrolyte imbalance, Encephalopathy, Hypoglycemia, Myocardial infarction, Pulmonary embolus, TIA, Vertigo: central, Vertigo: peripheral, Other (metabolic encephalopathy, sepsis, CO, ) X-Ray, Labs, Meds, VS Vital Signs Date Time Temp Pulse Resp B/P (MAP) Pulse Ox O2 Delivery O2 Flow Rate FiO2 04/15/24 10:42 97.9 95 16 139/94 (109) 95 97.9 04/15/24 10:28 139/94 04/15/24 08:50 90 16 95 Room Air 04/15/24 08:50 97.9 90 16 161/109 (126) 95 97.9 04/15/24 08:49 161/109 04/15/24 08:22 98.1 93 16 162/89 (113) 97 Lab Test 04/15/24 11:14 04/15/24 10:05 04/15/24 08:38 Range/Units Troponin I High Sensitivity 51 49 56 *H </=54 ng/L White Blood Count 5.5 4.4-10.8 10^3/uL Red Blood Count 4.49 L 4.5-5.90 10^6/uL Hemoglobin 15.2 # 13.5-17.5 g/dL Hematocrit 44.7 # 41.0-53.0 % Mean Corpuscular Volume 99.7 80.0-100.0 fL Mean Corpuscular Hemoglobin 33.8 H 28.0-32.0 pg Mean Corpuscular Hemoglobin Concent 34.0 32.0-36.0 g/dL Red Cell Distribution Width 15.1 H 11.8-14.3 % Platelet Count 250 140-450 10^3/uL Mean Platelet Volume 7.5 6.9-10.8 fL Neutrophils (%) (Auto) 67.8 37.0-80.0 % Lymphocytes (%) (Auto) 20.4 10.0-50.0 % Monocytes (%) (Auto) 9.7 0.0-12.0 % Eosinophils (%) (Auto) 1.6 0.0-7.0 % Basophils (%) (Auto) 0.5 0.0-2.0 % Neutrophils # (Auto) 3.7 1.6-8.6 10 ^3/uL Lymphocytes # (Auto) 1.1 0.4-5.4 10 ^3/uL Monocytes # (Auto) 0.5 0-1.3 10 ^3/uL Eosinophils # (Auto) 0.1 0-0.8 10 ^3/uL Basophils # (Auto) 0 0-0.2 10 ^3/uL Nucleated Red Blood Cells 0.1 % Sodium Level 142 136-145 mmol/L Potassium Level 4.4 3.5-5.1 mmol/L Chloride Level 108 H 98-107 mmol/L Carbon Dioxide Level 24 20-31 mmol/L Anion Gap 10 5-15 Blood Urea Nitrogen 34 H 9-23 mg/dL Creatinine 1.33 H 0.700-1.30 mg/dL Glomerular Filtration Rate Calc 53 >90 mL/min BUN/Creatinine Ratio 25.6 H 10.0-20.0 Serum Glucose 103 74-106 mg/dL Calcium Level 10.7 H 8.7-10.4 mg/dL Current Medications Medications (Trade) Dose Ordered Sig/Darrius Route Start Time Stop Time Status Last Admin Clonidine HCl (Catapres Tablet) 0.2 mg ONCE ONCE PO 04/15/24 08:45 04/15/24 08:46 DC 04/15/24 08:49 PROCEDURE(s): CTH - STROKE CTH IMPRESSION: Age-indeterminate, small medial right upper parietal infarct. Correlate with focal findings. There is no intracranial hemorrhage. The charge nurse, earline was notified of findings on 04/15/2024 at 1:58 p.m.. Patient alert. Complaining of right upper extremity weakness shaking. Vital stable. Answering all questions. Blood pressure elevated. Was given clonidine. Had a cardiac stent placed yesterday. Ever since then he has been having this right upper extremity symptom. Reviewed his previous visit. EKG reviewed does not show any acute changes. Explained to the patient. Continue cardiac monitoring. Time of 1ST Reevaluation: 09:00 Reevaluation 1ST: Unchanged Patient Education/Counseling: Diagnosis, Treatment, Prognosis Family Education/Counseling: Diagnosis, Treatment, Prognosis Departure 1 Departure Time of Disposition: 08:30 Impression: Primary Impression: Tremors of nervous system Additional Impressions: Radiculopathy Qualified Codes: M54.12 - Radiculopathy, cervical region HTN (hypertension) Qualified Codes: I10 - Essential (primary) hypertension Disposition: ADMITTED INPATIENT Admit to: Med Surg Condition: Guarded Critical Care Note Critical Care Time?: Yes (45 min-critical care time only) Stability Stability form required: No Heart Score Heart Score: Heart Score Response (Comments) Value History Slightly Suspicious 0 EKG Normal 0 Age >65 2 Risk Factors 1 or 2 risk factors 1 Troponin Normal limit 0 Total 3 I personally scribed for TAYLOR TORREZ MD ([email or web address]) on 04/15/24 at 08:25. Electronically submitted by Jose Villar ([email or web address]). I personally scribed for TAYLOR TORREZ MD ([email or web address]) on 04/15/24 at 14:14. Electronically submitted by Catherine Rodriguez ([email or web address]). I personally scribed for TAYLOR TORREZ MD ([email or web address]) on 04/15/24 at 15:25. Electronically submitted by Catherine Rodriguez ([email or web address]). TAYLOR TORREZ MD Apr 15, 2024 08:25
[2024-04-15] MEDS: cloNIDine HCL 0.1 MG TAB PO ONE (08:49)
[2024-04-15 09:05] LABS: Basophils # (auto) 0 10 ^3/uL (0-0.2); Basophils % (auto) 0.5 % (0.0-2.0); Eosinophils # (auto) 0.1 10 ^3/uL (0-0.8); Eosinophils % (auto) 1.6 % (0.0-7.0); Hematocrit 44.7 % (41.0-53.0); Hemoglobin 15.2 g/dL (13.5-17.5); Lymphocytes # (auto) 1.1 10 ^3/uL (0.4-5.4); Lymphocytes % (auto) 20.4 % (10.0-50.0); Mean Corpuscular Hemoglobin 33.8 pg (28.0-32.0); Mean Corpuscular Volume 99.7 fL (80.0-100.0); Monocytes # (auto) 0.5 10 ^3/uL (0-1.3); Monocytes % (auto) 9.7 % (0.0-12.0); Neutrophils # (auto) 3.7 10 ^3/uL (1.6-8.6); Neutrophils % (auto) 67.8 % (37.0-80.0); Nucleated Red Blood Cells % 0.1 %; Platelet Count (auto) 250 10^3/uL (140-450); Red Blood Cells 4.49 10^6/uL (4.5-5.90); Red Cell Distribution Width 15.1 % (11.8-14.3); White Blood Cell 5.5 10^3/uL (4.4-10.8)
[2024-04-15 09:18] LABS: Chloride 108 mmol/L (98-107); Potassium 4.4 mmol/L (3.5-5.1); Sodium 142 mmol/L (136-145)
[2024-04-15 09:19] LABS: Anion Gap 10 (5-15); Calcium 10.7 mg/dL (8.7-10.4); Carbon Dioxide 24 mmol/L (20-31)
[2024-04-15 09:24] LABS: BUN/Creatinine Ratio 25.6 (10.0-20.0); Blood Urea Nitrogen 34 mg/dL (9-23); Glucose 103 mg/dL (74-106)
[2024-04-15] MEDS ORDERED: MORPHINE SULFATE INJ 2 MG/ml SYRG IV PRN (13:30)
[2024-04-15 13:56] LABS: Urine Bacteria None Seen /hpf (None Seen)
--- NOTE | 2024-04-15 14:05 | DVH ---
EXAM: CT STROKE CTH HISTORY: CVA COMPARISON: None TECHNIQUE: Axial images were obtained and reformatted in coronal and sagittal planes. All CT scans at this medical facility are performed using dose modulation techniques as appropriate t o a performed exam including the following: Automated exposure control was utilized; adjustment of th e MA and/or KV according to patient size; and use of iterative reconstruction technique. CT Dose: CTDI volume is 56.98 mGy. Dose-length product is 913.32 mGy*cm FINDINGS: Supratentorial Region: A medial right upper parietal is noted.cortical hypoattenuation No intracr anial hemorrhage is noted. Posterior Fossa: No acute abnormality. Brainstem: Unremarkable. Sellar/Suprasellar Region: Unremarkable. Ventricles, Cisterns, Sulci: Age-appropriate. Orbits: Unremarkable. Paranasal Sinuses: Unremarkable. Mastoid Air Cells: Unremarkable. Vasculature: Unremarkable. Bones/Soft Tissues: No acute abnormality. Other: None. IMPRESSION: Age-indeterminate, small medial right upper parietal infarct. Correlate with focal findings. There is no intracranial hemorrhage. The charge nurse, earline was notified of findings on 04/15/2024 at 1:58 p.m..
--- NOTE | 2024-04-15 14:24 | DVHHP2 ---
Admitting Diagnosis: RIGHT SIDED WEAKNESS AND LOST OF CONTRO OF LEFT ARM MOVEMENT History of Present Illness Pt woke up with uncontrol right arm movement. mild disorientation. no syncope Now to undergo elective right inguinal hernia repair. Risks and benefits were explained to the patient. The patient understands and agrees. The patient underwent extensive workup prior to the surgery. The patient underwent stress test. Stress test shows no perfusion abnormality. Echocardiogram shows preserved left ventricular ejection fraction. PERTINENT MEDICAL HISTORY: Significant for: * Hypertension. * History of gout. * Hyperlipidemia. * Hypertension. * Reflux esophagitis. He denies any syncopal episode. No melena, hematochezia, no bleeding diathesis. In 2014, the patient actually underwent coronary angiogram. Angiogram shows no flow restrictive lesion. NEUROLOGIC: DTRs are 2+ symmetrical. Cranial nerves 2-12 within normal limi Past Medical History as above Past Surgical History ortho surgeries Family History FAMILY HISTORY: Negative. SOCIAL HISTORY: No tobacco or alcohol use. The patient is pretty active. Patient Family History: Family history: Cardiovascular disease Family history: Hypertension Allergies: Coded Allergies: NO KNOWN ALLERGIES (Unverified , 12/03/22) Home Meds Reported Medications Hydrochlorothiazide W/Triamter (Dyazide 37.5/25MG) 1 Cap Cp, 1 CAP PO DAILY for EDEMA, #30 CAP 5 Refills 04/11/24 Nitroglycerin (NTROSTAT SUBLINGUAL) 0.4 Mg Sl, 0.4 MG SL PRN for CHEST PAIN, TAB *MAY REPEAT EVERY 5 MINUTES X 3 TOTAL IF NO RELIEF, INITIATE ANALGESIC THERAPY. NOTIFY PHYSICIAN *Do not crush. 04/11/24 Hydrocodone-Acetaminophen (Hydrocodone/Acetaminophen 10-325 mg) 1 Tab Tab, 1 TAB PO PRN, TAB 12/01/22 Olmesartan Medoxomil (Benicar) Unknown Strength Tab, 20 MG PO DAILY, TAB 11/07/22 Pantoprazole Sodium Sesquihydr (Protonix) 40 Mg Tab, 40 MG PO DAILY, #30 TAB 11/07/22 Allopurinol (ZYLOPRIM TABLET) 100 Mg Tb, 300 MG PO DAILY, TAB 11/07/22 Clopidogrel Bisulfate (Plavix) 75 Mg Tab, 1 TAB PO 2XW, #90 TAB 1 Refill 02/16/15 Simvastatin (Zocor) 40 Mg Tab, 40 MG PO HS 07/05/10 Current Medications Current Medications Medications (Trade) Dose Ordered Sig/Darrius Route PRN Reason Start Time Stop Time Status Last Admin Clopidogrel Bisulfate (Plavix) 75 mg 2XW PO 04/18/24 12:00 04/17/24 08:13 DC Clopidogrel Bisulfate (Plavix) 75 mg QWEEKLY PO 04/18/24 08:15 04/17/24 08:48 DC Clopidogrel Bisulfate (Plavix) 75 mg QWEEKLY PO 04/22/24 08:30 04/17/24 08:48 DC Aspirin 81 mg DAILY PO 04/18/24 10:00 04/18/24 11:35 Atorvastatin Calcium (Lipitor) 40 mg HS PO 04/17/24 22:00 04/17/24 21:32 Review of Systems REVIEW OF SYSTEMS: He denies any fever or chills. No melena, no hematochezia. No bleeding diathesis. No hematemesis or hemoptysis. Denies any fever or chills. Denies any seizure activity. No CVA in the past as well. He has been admitted in the past for lung issues when he had pulmonary tracheobronchitis. Other than that, there was no recent admission documented. Vital Signs Vital Signs Date Time Temp Pulse Resp B/P (MAP) Pulse Ox O2 Delivery O2 Flow Rate FiO2 04/18/24 11:37 117/68 04/18/24 09:00 97.9 58 22 95 97.9 04/18/24 08:00 Room Air* 0 21 Physical Exam PHYSICAL EXAMINATION: VITAL SIGNS: Blood pressure is 132/80, pulse of 80, O2 saturation 95% on room air. HEENT: Pupils are reactive. Funduscopic exam shows no AV nicking, no exudates, no papilledema is noted. Tympanic membranes are negative. Sinuses are nontender. Nasal passages are intact. Oral mucosa moist. Posterior pharynx without any exudates. NECK: No cervical adenopathy. No supraclavicular adenopathy. Carotid pulses are 2+ symmetrical, normal upstroke and contour. No JVD appreciated. No nuchal rigidity. Thyroid is within normal limits. PULMONARY: Clear to auscultation in all lung ko. Tympanic to percussion. Negative for rhonchi or wheezing. Negative for egophony. CARDIOVASCULAR: Regular rate. There is a soft 2/6 systolic murmur along the left sternal border. PMI is not displaced. ABDOMEN: Soft, nontender. Normal bowel sounds. No epigastric tenderness, no CVA tenderness. Liver approximately 5 cm by percussion. Spleen tip nonpalpable. However, the patient does have some mild suprapubic tenderness because of the right inguinal hernia. Stool guaiac is negative. EXTREMITIES: 2+ pulses, no edema noted. Results Labs Test 04/17/24 22:16 04/15/24 13:55 04/15/24 11:14 04/15/24 08:38 Range/Units Triglycerides Level 92 < 150 mg/dL Cholesterol Level 153 < 200 mg/dL LDL Cholesterol 89 < 100 mg/dL HDL Cholesterol 54 40-59 mg/dL Urine Color Yellow Yellow Urine Clarity Clear Clear Urine pH 5.5 5.0-9.0 Urine Specific [place] 1.044 H 1.001-1.035 Urine Protein Trace H Negative Urine Ketones Negative Negative Urine Blood Negative Negative /uL Urine Nitrite Negative Negative Urine Bilirubin Negative Negative Urine Urobilinogen Normal Negative mg/dL Urine Leukocyte Esterase Negative Negative /uL Urine RBC <1 0 - 3 /hpf Urine WBC <1 0 - 3 /hpf Urine Squamous Epithelial Cells None seen <5 /hpf Urine Bacteria None seen None Seen /hpf Urine Mucus Few None Seen Urine Glucose Normal Normal mg/dL Troponin I High Sensitivity 51 </=54 ng/L White Blood Count 5.5 4.4-10.8 10^3/uL Red Blood Count 4.49 L 4.5-5.90 10^6/uL Hemoglobin 15.2 # 13.5-17.5 g/dL Hematocrit 44.7 # 41.0-53.0 % Mean Corpuscular Volume 99.7 80.0-100.0 fL Mean Corpuscular Hemoglobin 33.8 H 28.0-32.0 pg Mean Corpuscular Hemoglobin Concent 34.0 32.0-36.0 g/dL Red Cell Distribution Width 15.1 H 11.8-14.3 % Platelet Count 250 140-450 10^3/uL Mean Platelet Volume 7.5 6.9-10.8 fL Neutrophils (%) (Auto) 67.8 37.0-80.0 % Lymphocytes (%) (Auto) 20.4 10.0-50.0 % Monocytes (%) (Auto) 9.7 0.0-12.0 % Eosinophils (%) (Auto) 1.6 0.0-7.0 % Basophils (%) (Auto) 0.5 0.0-2.0 % Neutrophils # (Auto) 3.7 1.6-8.6 10 ^3/uL Lymphocytes # (Auto) 1.1 0.4-5.4 10 ^3/uL Monocytes # (Auto) 0.5 0-1.3 10 ^3/uL Eosinophils # (Auto) 0.1 0-0.8 10 ^3/uL Basophils # (Auto) 0 0-0.2 10 ^3/uL Nucleated Red Blood Cells 0.1 % Sodium Level 142 136-145 mmol/L Potassium Level 4.4 3.5-5.1 mmol/L Chloride Level 108 H 98-107 mmol/L Carbon Dioxide Level 24 20-31 mmol/L Anion Gap 10 5-15 Blood Urea Nitrogen 34 H 9-23 mg/dL Creatinine 1.33 H 0.700-1.30 mg/dL Glomerular Filtration Rate Calc 53 >90 mL/min BUN/Creatinine Ratio 25.6 H 10.0-20.0 Serum Glucose 103 74-106 mg/dL Calcium Level 10.7 H 8.7-10.4 mg/dL Admitting Diagnosis: GOUT HYPERTENSIVE HEART DIISEAS LEFT CVA WITH RIGHT SRM/ FOREARM WEAKNESS Plan PLAVIX CT HEAD MRI OF HEAD PT NEURO CONSULT Plan discussed with: Patient, Daughter, Other RANDY VERMA MD Apr 15, 2024 14:24
[2024-04-15 15:00] LABS: Urine Blood Negative /uL (Negative); Urine Clarity Clear (Clear); Urine Color Yellow (Yellow); Urine Mucus FEW (None Seen); Urine Protein, UAD TRACE (Negative); Urine Specific Gravity 1.044 (1.001-1.035); Urine Squamous Epithelial Cell None Seen /hpf (<5); Urine Urobilinogen Normal (Negative); Urine WBC <1 /hpf (0 - 3); Urine pH 5.5 (5.0-9.0)
--- NOTE | 2024-04-15 18:19 | DVH ---
EXAM: MRI BRAIN HEAD WO CONTRAST HISTORY: CVA COMPARISON: CT scan without contrast performed earlier today TECHNIQUE: MRI was performed utilizing multiple appropriate imaging planes and pulse sequences. FINDINGS: SUPRATENTORIAL REGION: Small acute ischemia in the right precentral gyrus measuring approximately 2.5 cm in length. Punctate focus of acute ischemia in the right posterior parietal cortex. No intracr anial hemorrhage. Small old infarcts in the right parietal lobe. Mild chronic microvascular ischemic changes noted. POSTERIOR FOSSA: Punctate focus of acute ischemia in the right cerebellum. BRAINSTEM: Unremarkable. SELLAR/SUPRASELLAR REGION: Unremarkable. VENTRICLES, CISTERNS, SULCI: Age-appropriate. ORBITS: Unremarkable. PARANASAL SINUSES: Unremarkable. MASTOID AIR CELLS: Unremarkable. VASCULATURE: Unremarkable. BONES/ SOFT TISSUES: Unremarkable. OTHER: None. IMPRESSION: 1. Small foci of multifocal multicompartmental acute ischemia suggestive of shower of emboli from a central source. Recommend further evaluation with carotid doppler and echocardiogram. 2. Small old right parietal lobe infarct corresponding to the abnormality seen in the recent CT scan. 3. No intracranial hemorrhage. 4. Mild chronic microvascular ischemic changes.
[2024-04-15 19:28] VITALS: PULSE 57; RESP 18; O2SAT 92
[2024-04-15 20:00] VITALS: PULSE 57; PULSE 69; RESP 18; O2SAT 92
[2024-04-15 21:00] VITALS: BP 103/62; PULSE 60; RESP 16; TEMP 98.1; O2SAT 98
[2024-04-15] MEDS: SACUBITRIL-VALSARTAN 24mg/26mg TAB PO SCH (21:36)
[2024-04-15] MEDS: ATORVASTATIN 20 MG TAB PO SCH (21:36)
[2024-04-16] VITALS (9 sets, daily range): BP systolic 98–118; BP diastolic 55–76; PULSE 48–89; RESP 16–18; TEMP 98.1–98.7; O2SAT 93–100
[2024-04-16] MEDS: TRIAMTERENE/HCTZ 37.5/25 MG CAP/TAB PO SCH (11:06)
[2024-04-16] MEDS: ALLOPURINOL 100 MG TAB PO SCH (11:06)
[2024-04-16] MEDS: PANTOPRAZOLE 40 MG TAB PO SCH (11:14)
[2024-04-17] VITALS (9 sets, daily range): BP systolic 99–118; BP diastolic 56–80; PULSE 58–86; RESP 16–20; TEMP 97.7–98.9; O2SAT 93–95
[2024-04-17] MEDS: CLOPIDOGREL BISULFATE 75 MG TAB PO SCH (10:00)
--- NOTE | 2024-04-17 15:48 | DVHPN2 ---
Subjective Continue to complain of right sided weakness; mainly right upper extremity Reviewed: Care Plan, H&P, Labs, Medications, Previous Orders, Radiology, Other (Consultation) Changes from previous H/P or p: No Changes Objective Vitals Vital Signs Date Time Temp Pulse Resp B/P (MAP) Pulse Ox O2 Delivery O2 Flow Rate FiO2 04/17/24 10:01 118/75 04/17/24 09:00 98.3 80 20 95 98.3 04/17/24 08:00 Room Air* 0 21 Intake/Output Intake and Output 04/17/24 07:00 Intake Total 719 ml Output Total 950 ml Balance -231 ml Intake Oral 719 ml Output Urine Total 950 ml General Appearance: Alert, Oriented X3, Cooperative, No acute distress HEENT: Atraumatic, Other (Facial droop; addressed skin biopsies sites) Lungs: Clear to auscultation, Normal air movement Cardiovascular: Regular rate, Normal S1, Normal S2 Abdomen: Normal bowel sounds, Soft, No tenderness Extremities: No edema Neuro: Normal speech, Cranial nerves 3-12 NL, Other (Weakness of right upper extremity; mild weakness of right lower extremity) Psych/Mental Status: Mental status NL, Mood NL Medications Current Medications Medications Dose Ordered Sig/Darrius Route Start Time Stop Time Status Last Admin Dose Admin Nitroglycerin 0.4 mg Q5MINP PRN SL 04/15/24 13:30 Morphine Sulfate 2 mg Q30M PRN IV 04/15/24 13:30 Allopurinol 300 mg DAILY PO 04/16/24 10:00 04/17/24 09:59 300 MG Pantoprazole Sodium 40 mg DAILY PO 04/16/24 10:00 04/17/24 10:00 40 MG Triamterene/HCTZ 1 cap DAILY PO 04/16/24 10:00 04/17/24 10:01 1 CAP Sacubitril/ Valsartan 1 tab BID PO 04/15/24 22:00 04/17/24 09:59 1 TAB Clopidogrel Bisulfate 75 mg DAILY PO 04/17/24 10:00 04/17/24 10:00 75 MG Aspirin 81 mg DAILY PO 04/18/24 10:00 UNV Atorvastatin Calcium 80 mg HS PO 04/17/24 22:00 UNV Laboratory Results Laboratory Tests 04/15/24 08:38 Urinalysis Test 04/15/24 13:55 Urine Color Yellow (Yellow) Urine Clarity Clear (Clear) Urine pH 5.5 (5.0-9.0) Urine Specific [place] 1.044 (1.001-1.035) Urine Protein Trace (Negative) H Urine Ketones Negative (Negative) Urine Blood Negative /uL (Negative) Urine Nitrite Negative (Negative) Urine Bilirubin Negative (Negative) Urine Urobilinogen Normal mg/dL (Negative) Urine Leukocyte Esterase Negative /uL (Negative) Urine RBC <1 /hpf (0 - 3) Urine WBC <1 /hpf (0 - 3) Urine Squamous Epithelial Cells None seen /hpf (<5) Urine Bacteria None seen /hpf (None Seen) Urine Mucus Few (None Seen) Urine Glucose Normal mg/dL (Normal) Labs and/or images reviewed: Labs reviewed by me, Image(s) reviewed by me Assessment/Plan Assessment/Plan Covering Dr. 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 -Reviewed head CT and brain MRI -Started aspirin -Increased the dose of atorvastatin -Ordered both transthoracic echo and transesophageal echo -Ordered duplex carotid ultrasound -Ordered neurology consult: EEG ordered for suspected for stroke seizure -Ordered physical therapy -Fall precautions; seizures precautions -Ordered social services technician for discharge planning -Continue clopidogrel -Continue monitoring #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 Aguilar onboard -Continue monitoring #ALESSANDRA; most likely vasomotor nephropathy #Hypercalcemia; unclear etiology at this time -Avoid nephrotoxic agents -IV fluid as needed -Continue monitoring #History of melanoma and basal cell carcinoma Status post recent biopsies of facial lesions; pathology pending; will follow up with outpatient health and safety inspector upon discharge Goals of care discussed with the patient and his for 22 minutes; full code This medical document was created using an electronic medical record system with computerized dictation system. Although this document has been carefully reviewed, there might still be some phonetic and typographical errors. These areas are purely typographical due to imperfections of the software programs, and do not reflect any compromise in the patient's medical care. Plan discussed with: Patient, Spouse, Other My Orders Orders - CODI BARFIELD MD Procedure Category Date Status Time Transesoph US 04/17/24 Logged Echocardiogram 15:43 * Neurology Consult CONS 04/17/24 Transmitted 15:43 Aspirin Tablet PHA 04/17/24 Logged 15:45 Aspirin Tablet PHA 04/18/24 Logged 10:00 Atorvastatin (Lipitor) PHA 04/17/24 Logged 22:00 Date of Service: Apr 17, 2024 Billing Provider: CODI BARFIELD MD Common Visit Codes: 49337-[id number] INP/OBS CARE(HIGH) Secondary Visit Codes: [id number] CARE PLAN 30 MINUTES (22 minutes) CODI BARFIELD MD Apr 17, 2024 15:48
[2024-04-17] MEDS: ASPirin 81 mg TAB PO ONE (16:44)
--- NOTE | 2024-04-17 16:49 | DVH ---
CAROTID DOPPLER ULTRASOUND HISTORY: Acute embolic strokes. Thank You! COMPARISON: US CAROTID DUPLX W COLOR DOP on DOS: 12/17/22, CAROTID DUPLX W COLOR DOP on DOS: 07/24/20, C AROTID DUPLX W COLOR DOP on DOS: 10/05/19 TECHNIQUE: Real time ocasio scale, color Doppler, and spectral duplex images are obtained through the c arotid and vertebral arteries. Findings: Peak systolic velocity right internal carotid artery is 86 cm/s and right common carotid artery is 75 cm/s. Ratio is 1.2. Antegrade flow noted in right vertebral artery. No significant atherosclerotic p laque noted within the right carotid arterial system. Peak systolic velocity left internal carotid artery is 114 cm/s and left common carotid artery is 61 cm/s. Ratio is 1.9. Antegrade flow noted in left vertebral artery. No significant atherosclerotic silvia que noted within the left carotid arterial system. Impression: 1. No evidence of hemodynamically significant stenosis within the bilateral carotid arterial systems. 2. Antegrade flow within bilateral vertebral arteries. Stenosis ICA/CCA PSV ratio PSV 0-40% < 1.5 25-110 cm/s 40-59% < 1.8 > 120 cm/s 60-79% 1.8-3.7 > 130 cm/s 80-99% > 3.7 < 25 cm/s, > 250 cm/s
--- NOTE | 2024-04-17 19:03 | DVHINCON2 ---
Date of service: Apr 17, [address] Lei Reason for Consultation Acute embolic strokes History of Present Illness Mr. Olivier is an 83 years old right-handed gentleman with a history of hypertension, dyslipidemia, coronary artery disease, heart attack, GERD, the patient was admitted on 04/15/2024 with a chief company of acute right-sided weakness. At this time, he was alert and fully oriented, he provided the following history He had CT stand on 04/14/2025, and he was discharged home with no problem. In the morning on 04/15/2024, developed right arm weakness, where he was not able to do things he wanted, and soon after, for 2-3 hours he had frequent spells of shaking in the right hand/arm, which last for 5-10 minutes each time, without altered mental status. At this time, the patient was recovered completely He was never had similar problems previously, he has no history of stroke/acute stroke syndrome or seizure disorder Urinalysis, 04/15/2024: Unremarkable CBC, 04/15/2024: Unremarkable BUN/CR, 04/15/2024: 34/1.33 HGB A1c, 06/2023: 5 TG/HDL/LDL/HDL, 06/2023: 83/181/100/64 Carotid Doppler, 04/17/2024: 1. No evidence of hemodynamically significant stenosis within the bilateral carotid arterial systems. 2. Antegrade flow within bilateral vertebral arteries CT head, 04/15/2024: Age-indeterminate, small medial right upper parietal infarct. Correlate with focal findings. There is no intracranial hemorrhage. MRI head, 04/17/2024: 1. Small foci of multifocal multicompartmental acute ischemia suggestive of shower of emboli from a central source. Recommend further evaluation with carotid doppler and echocardiogram. 2. Small old right parietal lobe infarct corresponding to the abnormality seen in the recent CT scan. 3. No intracranial hemorrhage. 4. Mild chronic microvascular ischemic changes Past Medical History Hypertension, dyslipidemia, coronary artery disease, heart attack, GERD Past Surgical History PTCA, right breast surgery, hernia repair Family History: Cerebrovascular accident (CVA) G8 FATHER Family history: Cardiovascular disease Family history: Hypertension Seizure disorder G8 MOTHER Family History Hypertension, heart disease, heart attack, stroke Social History He was a tobacco smoker, he denies a history of alcohol or recreational substance abuse Allergies: Coded Allergies: NO KNOWN ALLERGIES (Unverified , 12/03/22) Home Meds Reported Medications Hydrochlorothiazide W/Triamter (Dyazide 37.5/25MG) 1 Cap Cp, 1 CAP PO DAILY for EDEMA, #30 CAP 5 Refills 04/11/24 Nitroglycerin (NTROSTAT SUBLINGUAL) 0.4 Mg Sl, 0.4 MG SL PRN for CHEST PAIN, TAB *MAY REPEAT EVERY 5 MINUTES X 3 TOTAL IF NO RELIEF, INITIATE ANALGESIC THERAPY. NOTIFY PHYSICIAN *Do not crush. 04/11/24 Hydrocodone-Acetaminophen (Hydrocodone/Acetaminophen 10-325 mg) 1 Tab Tab, 1 TAB PO PRN, TAB 12/01/22 Olmesartan Medoxomil (Benicar) Unknown Strength Tab, 20 MG PO DAILY, TAB 11/07/22 Pantoprazole Sodium Sesquihydr (Protonix) 40 Mg Tab, 40 MG PO DAILY, #30 TAB 11/07/22 Allopurinol (ZYLOPRIM TABLET) 100 Mg Tb, 300 MG PO DAILY, TAB 11/07/22 Clopidogrel Bisulfate (Plavix) 75 Mg Tab, 1 TAB PO 2XW, #90 TAB 1 Refill 02/16/15 Simvastatin (Zocor) 40 Mg Tab, 40 MG PO HS 07/05/10 Current Medications Current Medications Medications (Trade) Dose Ordered Sig/Darrius Route PRN Reason Start Time Stop Time Status Last Admin Clopidogrel Bisulfate (Plavix) 75 mg 2XW PO 04/18/24 12:00 04/17/24 08:13 DC Clopidogrel Bisulfate (Plavix) 75 mg QWEEKLY PO 04/18/24 08:15 04/17/24 08:48 DC Clopidogrel Bisulfate (Plavix) 75 mg QWEEKLY PO 04/22/24 08:30 04/17/24 08:48 DC Clopidogrel Bisulfate (Plavix) 75 mg DAILY PO 04/17/24 10:00 04/17/24 10:00 Aspirin 81 mg DAILY PO 04/18/24 10:00 Atorvastatin Calcium (Lipitor) 40 mg HS PO 04/17/24 22:00 Review of Systems As above, the other systems are negative Vital Signs Vital Signs Date Time Temp Pulse Resp B/P (MAP) Pulse Ox O2 Delivery O2 Flow Rate FiO2 04/17/24 13:00 98.8 66 18 116/80 (92 95 98.8 04/17/24 08:00 Room Air* 0 21 Physical Exam GENERAL EXAM: General: the patient is well developed and nourished. No acute distress. HEENT: Normocephalic, neck is supple, no carotid bruits. No mass. RESPIRATORY: Normal respiratory effort with symmetrical lung expansion. Lungs clear to auscultation. CARDIOVASCULAR: Regular rate and rhythm with no murmurs. S1, S2. ABDOMEN: Soft, nontender, normal bowel sound NEUROLOGICAL: MENTAL STATUS: Awake and alert. Oriented to person, place, time and general circumstances. Able to give personal history SPEECH, LANGUAGE, HIGHER CORTICAL FUNCTION: no aphasia or dysathria. CRANIAL NERVES: #2: Intact visual ko to confrontation. The optic discs were sharp. #3,4,6: Pupils are equal, round and reactive. EOMs full and conjugate. No nystagmus. #5: Facial sensation intact in all three divisions bilaterally. Mandibular strength intact. #7: Facial muscles symmetrical and strength intact. #8: Hearing grossly normal to voice. #9,10: Uvula and soft palate rise in the midline. Swallow and voice are normal. #11: Trapezius and sternomastoid strength intact bilaterally. #12: Tongue midline. No fasciculations or atrophy. SENSATION: Sensation to touch and pinprick is normal. MOTOR: Normal tone in the upper and lower extremity. Normal muscle bulk. No fa sciculations. No abnormal movements or posturing. Muscle strength of the major groups in the upper extremities is 5/5. Muscle strength of the major groups in the lower extremities is 5/5. REFLEXES: Deep tendon reflexes are symmetrical. No pathological reflexes. CEREBELLAR/COORDINATION: Finger to nose ise normal bilaterally. GAIT/STATION: deferred. Labs/Diagnostic Data Labs Test 04/15/24 13:55 04/15/24 11:14 04/15/24 08:38 Range/Units Urine Color Yellow Yellow Urine Clarity Clear Clear Urine pH 5.5 5.0-9.0 Urine Specific Herrick 1.044 H 1.001-1.035 Urine Protein Trace H Negative Urine Ketones Negative Negative Urine Blood Negative Negative /uL Urine Nitrite Negative Negative Urine Bilirubin Negative Negative Urine Urobilinogen Normal Negative mg/dL Urine Leukocyte Esterase Negative Negative /uL Urine RBC <1 0 - 3 /hpf Urine WBC <1 0 - 3 /hpf Urine Squamous Epithelial Cells None seen <5 /hpf Urine Bacteria None seen None Seen /hpf Urine Mucus Few None Seen Urine Glucose Normal Normal mg/dL Troponin I High Sensitivity 51 </=54 ng/L White Blood Count 5.5 4.4-10.8 10^3/uL Red Blood Count 4.49 L 4.5-5.90 10^6/uL Hemoglobin 15.2 # 13.5-17.5 g/dL Hematocrit 44.7 # 41.0-53.0 % Mean Corpuscular Volume 99.7 80.0-100.0 fL Mean Corpuscular Hemoglobin 33.8 H 28.0-32.0 pg Mean Corpuscular Hemoglobin Concent 34.0 32.0-36.0 g/dL Red Cell Distribution Width 15.1 H 11.8-14.3 % Platelet Count 250 140-450 10^3/uL Mean Platelet Volume 7.5 6.9-10.8 fL Neutrophils (%) (Auto) 67.8 37.0-80.0 % Lymphocytes (%) (Auto) 20.4 10.0-50.0 % Monocytes (%) (Auto) 9.7 0.0-12.0 % Eosinophils (%) (Auto) 1.6 0.0-7.0 % Basophils (%) (Auto) 0.5 0.0-2.0 % Neutrophils # (Auto) 3.7 1.6-8.6 10 ^3/uL Lymphocytes # (Auto) 1.1 0.4-5.4 10 ^3/uL Monocytes # (Auto) 0.5 0-1.3 10 ^3/uL Eosinophils # (Auto) 0.1 0-0.8 10 ^3/uL Basophils # (Auto) 0 0-0.2 10 ^3/uL Nucleated Red Blood Cells 0.1 % Sodium Level 142 136-145 mmol/L Potassium Level 4.4 3.5-5.1 mmol/L Chloride Level 108 H 98-107 mmol/L Carbon Dioxide Level 24 20-31 mmol/L Anion Gap 10 5-15 Blood Urea Nitrogen 34 H 9-23 mg/dL Creatinine 1.33 H 0.700-1.30 mg/dL Glomerular Filtration Rate Calc 53 >90 mL/min BUN/Creatinine Ratio 25.6 H 10.0-20.0 Serum Glucose 103 74-106 mg/dL Calcium Level 10.7 H 8.7-10.4 mg/dL Assessment Acute multiple strokes Chronic stroke Abnormal movement in the right upper extremity, likely he had syncopal positive seizure secondary to acute stroke Right arm weakness secondary to acute stroke Plan/Recommendation Monitoring Supportive treatment Telemetry Lipitor profile EEG MAIA Aspirin 81 mg daily Clopidogrel 75 mg daily Lipitor 40 mg daily Stroke risk factors were discussed Progress: Poor This medical document was created using an electronic medical record system with [employer] dictation system. Although this document has been carefully reviewed, there may still be some phonetic and typographical errors. These areas are purely typographical due to imperfections of the software programs, and do not reflect any compromise in the patient's medical care. Plan discussed with: Patient, Other TREVOR WOODS MD Apr 17, 2024 19:03
[2024-04-17] MEDS: ATORVASTATIN 20 MG TAB PO SCH (21:32)
[2024-04-17 22:50] LABS: LDL Cholesterol 89 mg/dL (< 100); Triglycerides 92 mg/dL (< 150)
[2024-04-17 22:52] LABS: Cholesterol 153 mg/dL (< 200); HDL Cholesterol 54 mg/dL (40-59)
[2024-04-18] VITALS (9 sets, daily range): BP systolic 101–121; BP diastolic 65–73; PULSE 58–102; RESP 18–22; TEMP 97.8–98.3; O2SAT 92–96
[2024-04-18] MEDS ORDERED: CLOPIDOGREL BISULFATE 75 MG TAB PO SCH ×2 (08:15→12:00)
--- NOTE | 2024-04-18 10:43 | DVHPN2 ---
Progress Note - Dictate Date Seen: Apr 18, 2024 Medical Necessity Reason Pt with a Central, PICC or Fol: No Subjective Mr. Olivier is an 83 years old right-handed gentleman with a history of hypertension, dyslipidemia, coronary artery disease, heart attack, GERD, the patient was admitted on 04/15/2024 with a chief company of acute right-sided weakness. I have seen and examined the patient, I have talked to his nurse, in the room and she provided more history He right confirmed the history he gave me on 04/17/24, she relates the patient's snores mildly, but sometimes she is not breathing in the night, per her description, a possibility of central sleep apnea/Chandra-Heath respiration can not be rule out Urinalysis, 04/15/2024: Unremarkable CBC, 04/15/2024: Unremarkable BUN/CR, 04/15/2024: 34/1.33 HGB A1c, 06/2023: 5 TG/HDL/LDL/HDL, 06/2023: 83/181/100/64, 03/2024: 92/153/89/54 Carotid Doppler, 04/17/2024: 1. No evidence of hemodynamically significant stenosis within the bilateral carotid arterial systems. 2. Antegrade flow within bilateral vertebral arteries CT head, 04/15/2024: Age-indeterminate, small medial right upper parietal infarct. Correlate with focal findings. There is no intracranial hemorrhage. MRI head, 04/17/2024: 1. Small foci of multifocal multicompartmental acute ischemia suggestive of shower of emboli from a central source. Recommend further evaluation with carotid doppler and echocardiogram. 2. Small old right parietal lobe infarct corresponding to the abnormality seen in the recent CT scan. 3. No intracranial hemorrhage. 4. Mild chronic microvascular ischemic changes vital signs Vital Sign Date Time Temp Pulse Resp B/P (MAP) Pulse Ox O2 Delivery O2 Flow Rate FiO2 04/18/24 09:00 97.9 58 22 117/68 (84) 95 97.9 04/17/24 20:07 Room Air* 0 21 Total Intake and Output 04/17/24 04/17/24 04/18/24 15:00 23:00 07:00 Intake Total 750 ml 600 ml Balance 750 ml 600 ml medications Current Medications Medications Dose Ordered Sig/Darrius Route Start Time Stop Time Status Last Admin Dose Admin Nitroglycerin 0.4 mg Q5MINP PRN SL 04/15/24 13:30 Morphine Sulfate 2 mg Q30M PRN IV 04/15/24 13:30 Allopurinol 300 mg DAILY PO 04/16/24 10:00 04/17/24 09:59 300 MG Pantoprazole Sodium 40 mg DAILY PO 04/16/24 10:00 04/17/24 10:00 40 MG Triamterene/HCTZ 1 cap DAILY PO 04/16/24 10:00 04/17/24 10:01 1 CAP Sacubitril/ Valsartan 1 tab BID PO 04/15/24 22:00 04/17/24 21:32 1 TAB Clopidogrel Bisulfate 75 mg DAILY PO 04/17/24 10:00 04/17/24 10:00 75 MG Aspirin 81 mg DAILY PO 04/18/24 10:00 Atorvastatin Calcium 40 mg HS PO 04/17/24 22:00 04/17/24 21:32 40 MG objective General: the patient is well developed and nourished. No acute distress. MENTAL STATUS: Awake and alert. Oriented to person, place, time and general circumstances. Able to give personal history SPEECH, LANGUAGE, HIGHER CORTICAL FUNCTION: no aphasia or dysathria. CRANIAL NERVES: Pupils are equal, round and reactive. EOMs full and conjugate. No nystagmus. Facial sensation intact in all three divisions bilaterally. Mandibular strength intact. Facial muscles symmetrical and strength intact. SENSATION: Sensation to touch and pinprick is normal. MOTOR: Normal tone in the upper and lower extremity. Normal muscle bulk. No fasciculations. No abnormal movements or posturing. Muscle strength of the major groups in the extremities is 5/5. REFLEXES: Deep tendon reflexes are symmetrical. No pathological reflexes. CEREBELLAR/COORDINATION: Finger to nose is normal bilaterally. GAIT/STATION: deferred laboratory and microbiology Laboratory Tests 04/15/24 08:38 Test 04/15/24 08:38 Range/Units Serum Glucose 103 74-106 mg/dL Problem List Acute multiple strokes Chronic stroke Abnormal movement in the right upper extremity, likely he had syncopal positive seizure secondary to acute stroke Right arm weakness secondary to acute stroke Sleep-related breathing disorder Central sleep apnea/Chandra-Heath respiration Obstructive sleep apnea Assessment/Plan Monitoring Supportive treatment Telemetry Lipit profile EEG MAIA Aspirin 81 mg daily Clopidogrel 75 mg daily Lipitor 40 mg daily Stroke risk factors were discussed Further address sleep-related breathing disorder as outpatient, I recommend patient was seen a specialist in a teaching [facility] This medical document was created using an electronic medical record system with [employer] dictation system. Although this document has been carefully reviewed, there may still be some phonetic and typographical errors. These areas are purely typographical due to imperfections of the software programs, and do not reflect any compromise in the patient's medical care. Prognosis poor Plan discussed with: Patient, Spouse, Other Total Time (mins): 40 TREVOR WOODS MD Apr 18, 2024 10:43
[2024-04-18] MEDS: ASPirin 81 mg TAB PO SCH (11:35)
--- NOTE | 2024-04-18 13:26 | DVHPN2 ---
Progress Note - Dictate Date Seen: Apr 16, 2024 Medical Necessity Reason Pt with a Central, PICC or Fol: No Subjective Pt woke up with uncontrol right arm movement. mild disorientation. no syncope Now to undergo elective right inguinal hernia repair. Risks and benefits were explained to the patient. The patient understands and agrees. The patient underwent extensive workup prior to the surgery. The patient underwent stress test. Stress test shows no perfusion abnormality. Echocardiogram shows preserved left ventricular ejection fraction. RIGHT SIDED WEAKNESS RIGHT PARIETAL CVA vital signs Vital Sign Date Time Temp Pulse Resp B/P (MAP) Pulse Ox O2 Delivery O2 Flow Rate FiO2 04/18/24 11:37 117/68 04/18/24 09:00 97.9 58 22 95 97.9 04/18/24 08:00 Room Air* 0 21 Total Intake and Output 04/17/24 04/17/24 04/18/24 15:00 23:00 07:00 Intake Total 750 ml 600 ml Balance 750 ml 600 ml medications Current Medications Medications Dose Ordered Sig/Darrius Route Start Time Stop Time Status Last Admin Dose Admin Nitroglycerin 0.4 mg Q5MINP PRN SL 04/15/24 13:30 Morphine Sulfate 2 mg Q30M PRN IV 04/15/24 13:30 Allopurinol 300 mg DAILY PO 04/16/24 10:00 04/18/24 11:36 Pantoprazole Sodium 40 mg DAILY PO 04/16/24 10:00 04/18/24 11:38 Triamterene/HCTZ 1 cap DAILY PO 04/16/24 10:00 04/18/24 11:37 Sacubitril/ Valsartan 1 tab BID PO 04/15/24 22:00 04/18/24 11:37 Clopidogrel Bisulfate 75 mg DAILY PO 04/17/24 10:00 04/18/24 11:36 Aspirin 81 mg DAILY PO 04/18/24 10:00 04/18/24 11:35 Atorvastatin Calcium 40 mg HS PO 04/17/24 22:00 04/17/24 21:32 objective HEENT: Pupils are reactive. Funduscopic exam shows no AV nicking, no exudates, no papilledema is noted. Tympanic membranes are negative. Sinuses are nontender. Nasal passages are intact. Oral mucosa moist. Posterior pharynx without any exudates. NECK: No cervical adenopathy. No supraclavicular adenopathy. Carotid pulses are 2+ symmetrical, normal upstroke and contour. No JVD appreciated. No nuchal rigidity. Thyroid is within normal limits. PULMONARY: Clear to auscultation in all lung ko. Tympanic to percussion. Negative for rhonchi or wheezing. Negative for egophony. CARDIOVASCULAR: Regular rate. There is a soft 2/6 systolic murmur along the left sternal border. PMI is not displaced. ABDOMEN: Soft, nontender. Normal bowel sounds. No epigastric tenderness, no CVA tenderness. Liver approximately 5 cm by percussion. Spleen tip nonpalpable. However, the patient does have some mild suprapubic tenderness because of the right inguinal hernia. Stool guaiac is negative. EXTREMITIES: 2+ pulses, no edema noted. laboratory and microbiology Laboratory Tests 04/15/24 08:38 Test 04/15/24 08:38 Range/Units Serum Glucose 103 74-106 mg/dL Problem List RIGHT PARIETAL CVA GOUT HYPERTENSIVE HEART DIISEAS RIGHT CVA WITH RIGHT RIGHT FOREARM WEAKNESS Assessment/Plan Plan PLAVIX CT HEAD MRI OF HEAD PT NEURO CONSULT Plan discussed with: Patient RANDY VERMA MD Apr 18, 2024 13:26
--- NOTE | 2024-04-19 00:08 | DVHEEG2 ---
Neurology EEG Procedural Note Procedural Note EXAM DATE: 04/18/2024 REFERRING DOCTOR: Dr. Lucia TECHNIQUE: Eighteen channels of EEG, 2 channels of EOG, and 1 channel of EKG were recorded using the International 10/20 system. CLINICAL DATA: The patient was referred for an EEG evaluation for the evidence of seizure disorder. MEDICATIONS: See chart BACKGROUND ACTIVITY: While the patient was awake, the background activity consisted of fairly regulated 9 Hz rhythmic waveforms, symmetrically distributed over both posterior quadrants and was reactive to eye opening. ACTIVATION: Hyperventilation: Not done Photic Stimulation: Not done Sleep: Not seen IMPRESSION: This is a normal EEG. No focal, lateralized, or epileptiform features are noted. If clinically indicated to rule out a seizure disorder, recommend repeat EEG with sleep deprivation. The EKG channel showed a regular heart rate of 84 per minute. [place] [address] TREVOR WOODS MD Apr 19, 2024 00:08
[2024-04-19 05:00] VITALS: BP 97/69; PULSE 59; RESP 18; TEMP 98.6; O2SAT 94
[2024-04-19] MEDS: NITROGLYCERIN 0.4 MG SL TAB SL PRN (07:43)
[2024-04-19 08:00] VITALS: PULSE 86
[2024-04-19 09:00] VITALS: BP 116/76; PULSE 76; RESP 18; TEMP 97.9; O2SAT 93
[2024-04-19 13:00] VITALS: BP 106/70; PULSE 90; RESP 17; TEMP 98; O2SAT 93
--- NOTE | 2024-04-19 14:32 | DVHPN2 ---
Progress Note - Dictate Date Seen: Apr 16, 2024 Medical Necessity Reason Pt with a Central, PICC or Fol: No Subjective Pt woke up with uncontrol right arm movement. mild disorientation. no syncope Now to undergo elective right inguinal hernia repair. Risks and benefits were explained to the patient. The patient understands and agrees. The patient underwent extensive workup prior to the surgery. The patient underwent stress test. Stress test shows no perfusion abnormality. Echocardiogram shows preserved left ventricular ejection fraction. RIGHT SIDED WEAKNESS RIGHT PARIETAL CVA vital signs Vital Sign Date Time Temp Pulse Resp B/P (MAP) Pulse Ox O2 Delivery O2 Flow Rate FiO2 04/19/24 13:00 98.0 90 17 106/70 (82) 93 98.0 04/19/24 08:00 Room Air* 0 21 Total Intake and Output 04/18/24 04/18/24 04/19/24 14:59 22:59 06:59 Intake Total 540 ml 550 ml Balance 540 ml 550 ml medications Current Medications Medications Dose Ordered Sig/Darrius Route Start Time Stop Time Status Last Admin Dose Admin Nitroglycerin 0.4 mg Q5MINP PRN SL 04/15/24 13:30 04/19/24 07:43 0.4 MG Morphine Sulfate 2 mg Q30M PRN IV 04/15/24 13:30 Allopurinol 300 mg DAILY PO 04/16/24 10:00 04/19/24 10:46 300 MG Pantoprazole Sodium 40 mg DAILY PO 04/16/24 10:00 04/19/24 10:46 40 MG Triamterene/HCTZ 1 cap DAILY PO 04/16/24 10:00 04/19/24 10:45 1 CAP Sacubitril/ Valsartan 1 tab BID PO 04/15/24 22:00 04/19/24 10:46 1 TAB Clopidogrel Bisulfate 75 mg DAILY PO 04/17/24 10:00 04/19/24 10:46 75 MG Aspirin 81 mg DAILY PO 04/18/24 10:00 04/19/24 10:46 81 MG Atorvastatin Calcium 40 mg HS PO 04/17/24 22:00 04/18/24 21:57 40 MG objective HEENT: Pupils are reactive. Funduscopic exam shows no AV nicking, no exudates, no papilledema is noted. Tympanic membranes are negative. Sinuses are nontender. Nasal passages are intact. Oral mucosa moist. Posterior pharynx without any exudates. NECK: No cervical adenopathy. No supraclavicular adenopathy. Carotid pulses are 2+ symmetrical, normal upstroke and contour. No JVD appreciated. No nuchal rigidity. Thyroid is within normal limits. PULMONARY: Clear to auscultation in all lung ko. Tympanic to percussion. Negative for rhonchi or wheezing. Negative for egophony. CARDIOVASCULAR: Regular rate. There is a soft 2/6 systolic murmur along the left sternal border. PMI is not displaced. ABDOMEN: Soft, nontender. Normal bowel sounds. No epigastric tenderness, no CVA tenderness. Liver approximately 5 cm by percussion. Spleen tip nonpalpable. However, the patient does have some mild suprapubic tenderness because of the right inguinal hernia. Stool guaiac is negative. EXTREMITIES: 2+ pulses, no edema noted. laboratory and microbiology Laboratory Tests 04/15/24 08:38 Test 04/15/24 08:38 Range/Units Serum Glucose 103 74-106 mg/dL Problem List RIGHT PARIETAL CVA GOUT HYPERTENSIVE HEART DIISEAS RIGHT CVA WITH RIGHT RIGHT FOREARM WEAKNESS Assessment/Plan Plan [facility] CT HEAD MRI OF HEAD PT NEURO CONSULT Plan discussed with: Patient RANDY VERMA MD Apr 19, 2024 14:32
--- NOTE | 2024-04-19 14:36 | DVHDS2 ---
Discharge Summary Date of Admission Apr 15, 2024 at 13:21 Date of Discharge: Apr 19, 2024 Admitting Diagnosis RIGHT CVA SIDE SIDED WEAKNESS AND LOCALIZED SEIZURES Labs/Diagnostic Data: Laboratory Results Test 04/17/24 22:16 04/15/24 13:55 04/15/24 11:14 04/15/24 08:38 Triglycerides Level 92 mg/dL (< 150) Cholesterol Level 153 mg/dL (< 200) LDL Cholesterol 89 mg/dL (< 100) HDL Cholesterol 54 mg/dL (40-59) Urine Color Yellow (Yellow) Urine Clarity Clear (Clear) Urine pH 5.5 (5.0-9.0) Urine Specific Anderson 1.044 (1.001-1.035) Urine Protein Trace (Negative) Urine Ketones Negative (Negative) Urine Blood Negative /uL (Negative) Urine Nitrite Negative (Negative) Urine Bilirubin Negative (Negative) Urine Urobilinogen Normal mg/dL (Negative) Urine Leukocyte Esterase Negative /uL (Negative) Urine RBC <1 /hpf (0 - 3) Urine WBC <1 /hpf (0 - 3) Urine Squamous Epithelial Cells None seen /hpf (<5) Urine Bacteria None seen /hpf (None Seen) Urine Mucus Few (None Seen) Urine Glucose Normal mg/dL (Normal) Troponin I High Sensitivity 51 ng/L (</=54) White Blood Count 5.5 10^3/uL (4.4-10.8) Red Blood Count 4.49 10^6/uL (4.5-5.90) Hemoglobin 15.2 g/dL (13.5-17.5) Hematocrit 44.7 % (41.0-53.0) Mean Corpuscular Volume 99.7 fL (80.0-100.0) Mean Corpuscular Hemoglobin 33.8 pg (28.0-32.0) Mean Corpuscular Hemoglobin Concent 34.0 g/dL (32.0-36.0) Red Cell Distribution Width 15.1 % (11.8-14.3) Platelet Count 250 10^3/uL (140-450) Mean Platelet Volume 7.5 fL (6.9-10.8) Neutrophils (%) (Auto) 67.8 % (37.0-80.0) Lymphocytes (%) (Auto) 20.4 % (10.0-50.0) Monocytes (%) (Auto) 9.7 % (0.0-12.0) Eosinophils (%) (Auto) 1.6 % (0.0-7.0) Basophils (%) (Auto) 0.5 % (0.0-2.0) Neutrophils # (Auto) 3.7 10 ^3/uL (1.6-8.6) Lymphocytes # (Auto) 1.1 10 ^3/uL (0.4-5.4) Monocytes # (Auto) 0.5 10 ^3/uL (0-1.3) Eosinophils # (Auto) 0.1 10 ^3/uL (0-0.8) Basophils # (Auto) 0 10 ^3/uL (0-0.2) Nucleated Red Blood Cells 0.1 % Sodium Level 142 mmol/L (136-145) Potassium Level 4.4 mmol/L (3.5-5.1) Chloride Level 108 mmol/L (98-107) Carbon Dioxide Level 24 mmol/L (20-31) Anion Gap 10 (5-15) Blood Urea Nitrogen 34 mg/dL (9-23) Creatinine 1.33 mg/dL (0.700-1.30) Glomerular Filtration Rate Calc 53 mL/min (>90) BUN/Creatinine Ratio 25.6 (10.0-20.0) Serum Glucose 103 mg/dL (74-106) Calcium Level 10.7 mg/dL (8.7-10.4) Other Laboratory Tests 04/15/24 08:38 Brief Hx & Hospital Course: RIGHT PARIETAL CVA GOUT HYPERTENSIVE HEART DIISEAS RIGHT CVA WITH RIGHT RIGHT FOREARM WEAKNESS Assessment/Plan Plan PLAVIX CT HEAD MRI OF HEAD PT NEURO CONSULT Consults/Reason for consult NEUROLOGY Condition at Discharge: Fair Final Diagnosis/Problems List RIGHT PARIETAL CVA GOUT HYPERTENSIVE HEART DIISEAS RIGHT CVA WITH RIGHT RIGHT FOREARM WEAKNESS Discharge Disposition: Home Discharge Instruct/Medications Diet: Cardiac 2g Na,low cholest Activity: Light activity Follow Up/Referral: [facility] HOME MEDS Medications: CONT PLAVIX ELIQUIS 2.5 MG PO BID Discharge Statement: "Patient was advised to return to the ER or call 911 if any headaches, dizziness, shortness of breath, chest pain, abdominal pain, bleeding, fevers, or worsening of medical condition. Patient was counseled about treatment plan, medications, possible side effects, patientverbalized understanding. All questions were answered to the best of my ability. This discharge took greater then 30 minutes in planning, reviewing documentation, counseling the patient, and discussing with other team members." ASSESSMENT ASSESSMENT Assessment RANDY VERMA MD Apr 19, 2024 14:36
[2024-04-19] MEDS ORDERED: APIX2.5T PO (16:04)
[2024-04-19] MEDS ORDERED: LEVO500T91 PO (16:06)
--- NOTE | 2024-04-19 16:29 | DVH ---
CHEST RADIOGRAPH Indication:COUGHING Technique: Single frontal view of the chest was obtained Comparison: 04/11/2024 FINDINGS: Lines and Tubes: None Lungs: No focal consolidation. Pleura: No effusion. No pneumothorax. Cardiomediastinal contours: Unremarkable Bones: No acute osseous abnormality. IMPRESSION: 1. No acute cardiopulmonary disease. 2. No significant change from 04/11/2024.
[2024-04-19 16:45] VITALS: BP 107/70; PULSE 90; RESP 16; TEMP 98; O2SAT 93
[2024-04-19 17:00] VITALS: BP 113/64; PULSE 77; RESP 18; TEMP 97.8; O2SAT 94
[2024-04-22] MEDS ORDERED: CLOPIDOGREL BISULFATE 75 MG TAB PO SCH (08:30)
== END 2024-04-19 17:45 | disposition home or self-care (01) | DRG 321 ==
LOC: ER 08:02 → TELE 13:21 → TELE-EAST 18:47
PROVIDERS: ADMIT Internal Medicine Cardiovascular Disease; ATTEND Internal Medicine Cardiovascular Disease
PROC: 4A023N7 Measurement of Cardiac Sampling and Pressure, Left Heart, Percutaneous Approach (ICD-10-PCS; principal; 2024-04-14)
PROC: 027034Z Dilation of Coronary Artery, One Artery with Drug-eluting Intraluminal Device, Percutaneous Approach (ICD-10-PCS; 2024-04-14)
PROC: 02C03ZZ Extirpation of Matter from Coronary Artery, One Artery, Percutaneous Approach (ICD-10-PCS; 2024-04-14)
PROC: B211YZZ Fluoroscopy of Multiple Coronary Arteries using Other Contrast (ICD-10-PCS; 2024-04-14)
PROC: B215YZZ Fluoroscopy of Left Heart using Other Contrast (ICD-10-PCS; 2024-04-14)
PROC: 4A033BC Measurement of Arterial Pressure, Coronary, Percutaneous Approach (ICD-10-PCS; 2024-04-14)
DX: I25.10 Atherosclerotic heart disease of native coronary artery without angina pectoris (principal); I63.9 Cerebral infarction, unspecified; G81.93 Hemiplegia, unspecified affecting right nondominant side; I50.22 Chronic systolic (congestive) heart failure; E78.5 Hyperlipidemia, unspecified; E83.52 Hypercalcemia; I11.0 Hypertensive heart disease with heart failure; M10.9 Gout, unspecified; M54.12 Radiculopathy, cervical region; G47.33 Obstructive sleep apnea (adult) (pediatric); K21.9 Gastro-esophageal reflux disease without esophagitis; R25.1 Tremor, unspecified; I25.84 Coronary atherosclerosis due to calcified coronary lesion; R93.1 Abnormal findings on diagnostic imaging of heart and coronary circulation; F17.200 Nicotine dependence, unspecified, uncomplicated; Z79.02 Long term (current) use of antithrombotics/antiplatelets; Z95.5 Presence of coronary angioplasty implant and graft; Z86.73 Personal history of transient ischemic attack (TIA), and cerebral infarction without residual deficits; Z85.828 Personal history of other malignant neoplasm of skin; Z82.3 Family history of stroke; Z82.0 Family history of epilepsy and other diseases of the nervous system; Z79.899 Other long term (current) drug therapy; Z79.82 Long term (current) use of aspirin; Z82.49 Family history of ischemic heart disease and other diseases of the circulatory system; Z85.820 Personal history of malignant melanoma of skin
CPT/HCPCS: 92928; 92973; 93458; 93571; 99291; C9600; 36415; 70450; 70551; 71045; 75580; 80048; 80061; 81001; 84484; 85025; 85610; 85730; 93886; 95819; 97163; 99152; 99153; C1894; G0378; J2250; Q9967

== ENCOUNTER → 2024-06-06 | Outpatient (CLI) | payer MEDICARE, BC ==
[~2024-06-06] MED LIST changes: +APIX2.5T PO; +LEVO500T91 PO; -OLME40TA78 PO
[2024-06-06 09:50] VITALS: BP 155/93; PULSE 57; RESP 16; O2SAT 98
[2024-06-06 10:04] VITALS: BP 159/86; PULSE 50; RESP 16; O2SAT 98
--- NOTE | 2024-06-06 13:09 | DVH ---
EXAM: XY CHEST TWO VIEWS ROUTINE CLINICAL HISTORY: pain COMPARISON: XY CHEST TWO VIEWS ROUTINE on DOS: 04/11/24, XY CHEST TWO VIEWS ROUTINE on DOS: 11/21/22 TECHNIQUE: Frontal and lateral view of the chest was obtained FINDINGS: Lines and Tubes: None Lungs: No focal consolidation. Pleura: No effusion. No pneumothorax. Cardiomediastinal contours: Unremarkable. Atherosclerotic vascular calcifications of the thoracic ao rta are noted. Bones: No acute osseous abnormality. IMPRESSION: No acute cardiopulmonary disease.
== END | disposition home or self-care (01) ==
LOC: Rad HDHVI 09:43
PROVIDERS: ATTEND Internal Medicine Cardiovascular Disease
DX: Z01.818 Encounter for other preprocedural examination (principal); I45.10 Unspecified right bundle-branch block; I48.91 Unspecified atrial fibrillation; I21.4 Non-ST elevation (NSTEMI) myocardial infarction; I63.9 Cerebral infarction, unspecified
CPT/HCPCS: 71046; 93005; G0463

== ENCOUNTER 2024-06-09 06:15 | Inpatient (IN) | payer MEDICARE, BC ==
[2024-06-06 11:51] LABS: Basophils # (auto) 0 10 ^3/uL (0-0.2); Basophils % (auto) 0.5 % (0.0-2.0); Eosinophils # (auto) 0.1 10 ^3/uL (0-0.8); Eosinophils % (auto) 2.2 % (0.0-7.0); Hematocrit 41.1 % (41.0-53.0); Hemoglobin 13.8 g/dL (13.5-17.5); Lymphocytes % (auto) 21.3 % (10.0-50.0); Mean Corpuscular Hemoglobin 33.1 pg (28.0-32.0); Mean Corpuscular Hgb Conc. 33.7 g/dL (32.0-36.0); Mean Corpuscular Volume 98.2 fL (80.0-100.0); Monocytes # (auto) 0.6 10 ^3/uL (0-1.3); Monocytes % (auto) 13.7 % (0.0-12.0); Neutrophils # (auto) 2.8 10 ^3/uL (1.6-8.6); Neutrophils % (auto) 62.3 % (37.0-80.0); Nucleated Red Blood Cells % 0.2 %; Platelet Count (auto) 186 10^3/uL (140-450); Red Blood Cells 4.18 10^6/uL (4.5-5.90); Red Cell Distribution Width 14.9 % (11.8-14.3); White Blood Cell 4.5 10^3/uL (4.4-10.8)
[2024-06-06 12:10] LABS: INR 1.04 (0.9-1.15); Partial Thromboplastin Time 27.6 SEC (24.5-34.5); Potassium 4.2 mmol/L (3.5-5.1); Sodium 143 mmol/L (136-145)
[2024-06-06 12:11] LABS: Anion Gap 7 (5-15); Calcium 10.2 mg/dL (8.7-10.4); Carbon Dioxide 28 mmol/L (20-31)
[2024-06-06 12:14] LABS: Chloride 108 mmol/L (98-107)
[2024-06-06 12:16] LABS: BUN/Creatinine Ratio 23.8 (10.0-20.0); Glucose 101 mg/dL (74-106)
[2024-06-06 12:19] LABS: Blood Urea Nitrogen 25 mg/dL (9-23)
[~2024-06-09] VITALS: Ht 182.9 cm; Wt 90.8 kg
[2024-06-09] VITALS (15 sets, daily range): BP systolic 118–170; BP diastolic 67–89; PULSE 42–70; RESP 14–20; TEMP 97.5–98.3; O2SAT 95–98
[~2024-06-09 06:15] MED LIST changes: -HYDR-4072 PO; -LEVO500T91 PO
[2024-06-09] MEDS: IOHEXOL 350 MG/ML 100ML IJ ONE (07:28)
[2024-06-09] MEDS: HEPARIN IN NS 1000Units/500mL 1,500 ML ONE (07:28)
[2024-06-09] MEDS: fentaNYL CITRATE 100 MCG/2 ML VL ONE (07:46)
[2024-06-09] MEDS: ANGIOMAX 250 MG VIAL IV ONE ×2 (07:46→08:05)
[2024-06-09] MEDS: LIDOCAINE 2%HCL (LOCAL ANESTH.) INJ 20ML MDV ONE (07:47)
[2024-06-09] MEDS: MIDAZOLAM HCL 2MG/2ML 2ml VIAL (1mg/ml) ONE (07:47)
[2024-06-09] MEDS: SODIUM CHL 0.9% 50 ML ONE ×2 (07:47→08:05)
[2024-06-09] MEDS: CLOPIDOGREL BISULFATE 75 MG TAB ONE (09:00)
[2024-06-09] MEDS ORDERED: NITROGLYCERIN 0.4 MG SL TAB SL PRN (09:15)
[2024-06-09] MEDS ORDERED: MORPHINE SULFATE INJ 2 MG/ml SYRG IV PRN (09:15)
--- NOTE | 2024-06-09 09:19 | DVHHP2 ---
Admitting Diagnosis: CHEST PAIN History of Present Illness The patient is 83 years old with history of hypertension, hyperlipidemia, history of previous myocardial infarction in 2015, underwent successful angioplasty with stent placement. In 2014, he had three stents placed and in 2013, he had two stents placed. At this time, the patient is having further symptoms of shortness of breath and also diminished left ventricular ejection fraction. He does not have any history of CVA. No seizure disorder. No movement disorder. Denies any peripheral vascular disease. No history of COPD. He has remote history of tobacco use but discontinued smoking some 40 years ago. No history of cardiac arrest. No diabetes. No history of renal insufficiency. CURRENT MEDICATIONS: Include Plavix, Zocor, Benicar, and Dyazide. The patient positive for osteoarthritis. No history of any fever or chills. No melena or hematochezia. No hematemesis or hemoptysis. Past Medical History ABOVE Past Surgical History PTCA STENT CX Family History NEGATIVE Social History NEGATIVE Patient Family History: Cerebrovascular accident (CVA) G8 FATHER Family history: Cardiovascular disease Family history: Hypertension Seizure disorder G8 MOTHER Allergies: Coded Allergies: NO KNOWN ALLERGIES (Unverified , 12/03/22) Home Meds Reported Medications Apixaban Base (ELIQUIS) 2.5 Mg Tab, 2.5 MG PO BID for stop on 06/08/24 for 30 Days, #60 TAB 04/19/24 Latanoprost (Xalatan) 0.005 % Scarlet, 1 DROP EACHEYE QPM for 75 Days, #7.5 04/18/24 Olmesartan Medoxomil (Olmesartan Medoxomil) 20 Mg Tab, 1 TAB PO DAILY for 90 Days, #90 04/18/24 Hydrochlorothiazide W/Triamter (Dyazide 37.5/25MG) 1 Cap Cp, 1 CAP PO DAILY for EDEMA, #30 CAP 5 Refills 04/11/24 Nitroglycerin (NTROSTAT SUBLINGUAL) 0.4 Mg Sl, 0.4 MG SL PRN for CHEST PAIN, TAB *MAY REPEAT EVERY 5 MINUTES X 3 TOTAL IF NO RELIEF, INITIATE ANALGESIC THERAPY. NOTIFY PHYSICIAN *Do not crush. 04/11/24 Pantoprazole Sodium Sesquihydr (Protonix) 40 Mg Tab, 40 MG PO DAILY, #30 TAB 11/07/22 Allopurinol (ZYLOPRIM TABLET) 100 Mg Tb, 300 MG PO DAILY, TAB 11/07/22 Clopidogrel Bisulfate (Plavix) 75 Mg Tab, 1 TAB PO 2XW, #90 TAB 1 Refill 02/16/15 Simvastatin (Zocor) 40 Mg Tab, 40 MG PO HS 07/05/10 Current Medications Current Medications Medications (Trade) Dose Ordered Sig/Darrius Route PRN Reason Start Time Stop Time Status Last Admin Nitroglycerin (Ntrostat Sublingual) 0.4 mg Q5MINP PRN SL FOR CHEST PAIN 06/09/24 09:15 Morphine Sulfate 2 mg Q30M PRN IV FOR CHEST PAIN 06/09/24 09:15 Vital Signs Physical Exam HEENT: Pupils are reactive. Funduscopic exam is benign. No papilledema. No AV nicking. No exudates. Sclerae anicteric. Extraocular muscles are intact. Tympanic membranes are negative. Oral mucosa moist. Posterior pharynx without any exudate. NECK: No JVD appreciated. Carotid pulses are 2+ symmetrical. No cervical adenopathy. No supraclavicular adenopathy. Thyroid is within normal limits. No nuchal rigidity. PULMONARY: Clear to auscultation. CARDIOVASCULAR: Regular rate without S3 and without S4. PMI is not displaced. ABDOMEN: Soft and nontender. Normal bowel sounds. EXTREMITIES: 1+ pulses. NEUROLOGICAL: The patient is intact. Results Labs Test 06/06/24 11:44 Range/Units White Blood Count 4.5 4.4-10.8 10^3/uL Red Blood Count 4.18 L 4.5-5.90 10^6/uL Hemoglobin 13.8 13.5-17.5 g/dL Hematocrit 41.1 41.0-53.0 % Mean Corpuscular Volume 98.2 80.0-100.0 fL Mean Corpuscular Hemoglobin 33.1 H 28.0-32.0 pg Mean Corpuscular Hemoglobin Concent 33.7 32.0-36.0 g/dL Red Cell Distribution Width 14.9 H 11.8-14.3 % Platelet Count 186 140-450 10^3/uL Mean Platelet Volume 7.5 6.9-10.8 fL Neutrophils (%) (Auto) 62.3 37.0-80.0 % Lymphocytes (%) (Auto) 21.3 10.0-50.0 % Monocytes (%) (Auto) 13.7 H 0.0-12.0 % Eosinophils (%) (Auto) 2.2 0.0-7.0 % Basophils (%) (Auto) 0.5 0.0-2.0 % Neutrophils # (Auto) 2.8 1.6-8.6 10 ^3/uL Lymphocytes # (Auto) 1.0 0.4-5.4 10 ^3/uL Monocytes # (Auto) 0.6 0-1.3 10 ^3/uL Eosinophils # (Auto) 0.1 0-0.8 10 ^3/uL Basophils # (Auto) 0 0-0.2 10 ^3/uL Nucleated Red Blood Cells 0.2 % Prothrombin Time 11.0 9.3-11.8 sec Prothrombin Time INR 1.04 0.9-1.15 Activated Partial Thromboplast Time 27.6 24.5-34.5 SEC Sodium Level 143 136-145 mmol/L Potassium Level 4.2 3.5-5.1 mmol/L Chloride Level 108 H 98-107 mmol/L Carbon Dioxide Level 28 20-31 mmol/L Anion Gap 7 5-15 Blood Urea Nitrogen 25 H 9-23 mg/dL Creatinine 1.05 0.700-1.30 mg/dL Glomerular Filtration Rate Calc 71 >90 mL/min BUN/Creatinine Ratio 23.8 H 10.0-20.0 Serum Glucose 101 74-106 mg/dL Calcium Level 10.2 8.7-10.4 mg/dL Admitting Diagnosis: PT WITH CAD ISCHEMIC CM S/P PTCA STENT CX NOW SCHEDULED FOR RCA PTCA Plan PTCA RCA Plan discussed with: Patient RANDY VERMA MD Jun 09, 2024 09:19
--- NOTE | 2024-06-09 09:35 | DVHOP ---
DATE OF SURGERY: 06/09/2024 PROCEDURES PERFORMED: * Selective left and right coronary angiography. * Thrombectomy with shockwave treatment of the right coronary artery with a 2.5 mm shockwave balloon and thrombectomy catheter. * Stent placement of the left proximal segment of the RCA with two sequential stents, 3.5 x 18 and 3.5 x 22 mm [place] stent deployed, dilated with a noncompliant balloon to 4 mm. * Conscious sedation. DESCRIPTION OF PROCEDURE: The patient was prepped and draped in a sterile condition. A 1% Xylocaine used to anesthetize the right groin. Using a Cook needle, right femoral artery was engaged with Seldinger technique, 6-[place] sheath in the right femoral artery. Using 6-[place] JL4 catheter and 6-[place] JR4 catheter, selective left and right coronary angiographies were performed. Using 6-[place] pigtail catheter, ventriculogram was done. Following that, the 6-[place] diagnostic system was exchanged for a 6-[place] interventional system. Using PETERSON guide catheter, 6-[place], right coronary artery was cannulated. Using a ChoICE PT extra support wire, the lesion was then crossed. It was then thrombectomized and then shockwave treatment was given for fracture of the calcification with a 2.5 x 12 mm shockwave balloon. Following the treatment, two sequential 3.5 x 18 and 3.5 x 22 mm stents were deployed, but prior to deploying the stent, a second Runthrough wire was then deployed. It was through the Runthrough wire, the stents were deployed for additional support. Following the deployment, a 4.0 x 20 mm noncompliant [place] balloon was used to post-dilate the stents to 4 mm. There were no complications. The patient tolerated the procedure well. RESULTS: 1. Left main has a 30% proximal narrowing. 2. Left anterior descending artery in the mid portion has about 50% narrowing that may require intervention at a later date. 3. Circumflex artery previous site of stent placement was patent with no residual stenosis. 4. Right coronary artery had a long segmental 90% narrowing status post thrombectomy with angioplasty with stent placement with a two sequential stents with 3.5 x 18 and 3.5 x 22 mm [place] stents were placed with less than 10% residual stenosis. Left ventricular function was preserved with an estimated EF around 55% with an LVEDP of 10 mmHg with no gradient across the aortic valve. Thus, the patient has successful revascularization, now the right coronary artery previously of the circumflex artery. The patient still has residual stenosis in the left main that needs to be monitored carefully and the left anterior descending artery in the mid portion. Jeff Aguilar MD SA/NEVA TID: [id number] RECEIPT: [id number]
[2024-06-09] MEDS: CLOPIDOGREL BISULFATE 75 MG TAB PO SCH (12:17)
[2024-06-09] MEDS: TRIAMTERENE/HCTZ 37.5/25 MG CAP/TAB PO ONE (13:57)
[2024-06-09] MEDS: hydrALAZINE HCL 20 MG/ML VL IV PRN (18:20)
[2024-06-09] MEDS: ATORVASTATIN 20 MG TAB PO SCH (21:09)
[2024-06-09] MEDS: LATANOPROST 0.005 % OPTH(EYE) SOL 2.5ML EACHEYE SCH (21:11)
[2024-06-10] VITALS (8 sets, daily range): BP systolic 123–137; BP diastolic 71–88; PULSE 51–80; RESP 16–19; TEMP 98.2–98.7; O2SAT 93–96
--- NOTE | 2024-06-10 07:43 | DVHDS ---
DATE OF DISCHARGE: 06/10/2024 ANTICIPATED DATE OF DISCHARGE: 06/10/2024 DISCHARGE DIAGNOSES: * The patient underwent successful ____ placement of the right coronary artery. * Sequential stent placement. He had previous angioplasty of the circumflex. HOSPITAL COURSE: At this time, the patient is clinically stable. He is on dual antiplatelet therapy, may be discharged home. Follow up with me in 1 week. Stable at the time of discharge. ACTIVITY: As instructed. DIET: Will be 2 g sodium diet. Jeff Aguilar MD SA/ALEXANDER/TJ TID: [id number] RECEIPT: [id number]
[2024-06-10] MEDS: OLMESARTAN MEDOXOMIL 20 MG PO SCH (09:36)
[2024-06-10] MEDS: TRIAMTERENE/HCTZ 37.5/25 MG CAP/TAB PO SCH (09:37)
[2024-06-10] MEDS: PANTOPRAZOLE 40 MG TAB PO SCH (09:38)
[2024-06-10] MEDS: ALLOPURINOL 100 MG TAB PO SCH (09:38)
== END 2024-06-10 17:23 | disposition home or self-care (01) | DRG 324 ==
LOC: CATH 06:15 → TELE 09:03 → TELE-WESTW 11:26
PROVIDERS: ADMIT Internal Medicine Cardiovascular Disease; ATTEND Internal Medicine Cardiovascular Disease
PROC: 027035Z Dilation of Coronary Artery, One Artery with Two Drug-eluting Intraluminal Devices, Percutaneous Approach (ICD-10-PCS; principal; 2024-06-09)
PROC: 02F03ZZ Fragmentation in Coronary Artery, One Artery, Percutaneous Approach (ICD-10-PCS; 2024-06-09)
PROC: 02C03Z6 Extirpation of Matter from Coronary Artery, One Artery, Bifurcation, Percutaneous Approach (ICD-10-PCS; 2024-06-09)
PROC: 4A023N7 Measurement of Cardiac Sampling and Pressure, Left Heart, Percutaneous Approach (ICD-10-PCS; 2024-06-09)
PROC: B211YZZ Fluoroscopy of Multiple Coronary Arteries using Other Contrast (ICD-10-PCS; 2024-06-09)
PROC: B215YZZ Fluoroscopy of Left Heart using Other Contrast (ICD-10-PCS; 2024-06-09)
DX: I25.10 Atherosclerotic heart disease of native coronary artery without angina pectoris (principal); I25.5 Ischemic cardiomyopathy; I10 Essential (primary) hypertension; E78.5 Hyperlipidemia, unspecified; I25.2 Old myocardial infarction; Z87.891 Personal history of nicotine dependence; Z82.49 Family history of ischemic heart disease and other diseases of the circulatory system; Z82.0 Family history of epilepsy and other diseases of the nervous system; Z82.3 Family history of stroke
CPT/HCPCS: 36415; 71046; 80048; 85025; 85610; 85730; 92928; 93005; 93458; 99152; C1874; G0378; G0463; J2250

== ENCOUNTER → 2024-06-20 | Outpatient (CLI) | payer MEDICARE, BC ==
--- NOTE | 2024-06-20 16:26 | DVHSR ---
APPROVED REPORT EXAM: Two-dimensional and M-mode echocardiogram with Doppler and color Doppler. DIMENSIONS LVDd5.8 (3.8-5.7cm)LA (2D)4.4 (1.9-4.0cm)Aortic Root4.0 (2.0-3.7cm) LVDs4.1 (2.5-4.0cm)LA (MM) (1.9-4.0cm)Aortic Cusp Exc1.7 (1.5-2.0cm) EF (%) 56.6 (55-70%)Rt. Atrium4.0 (1.9-4.0cm)Asc. Aorta cm IVSd1.2 (0.7-1.1cm)RV (D)4.1 (1.8-2.4cm) PWd1.0 (0.7-1.1cm) Mitral Valve MitralMitral Stenosis E wave0.53m/sMV Mean GR.mmHg A wave0.60m/sMV Peak GR.20mmHg E/A ratio0.92D MVAcm2 DECEL [id number] 1/2 [place] Aortic Valve Aortic ValveAortic Stenosis V10.79m/Sameera Mean GR.6mmHg V21.67m/Sameera Peak GR.11mmHg Pulmonic Valve V20.57m/s Tricuspid Valve TR Velocity1.60m/s [id number] LEFT VENTRICLE The Ejection Fraction is >55%. ATRIA The left atrium is mildly dilated. The right atrium size is normal. MITRAL VALVE The mitral valve is normal in structure and function. Mitral regurgitation is trace to mild. PULMONIC VALVE The pulmonic valve is not well visualized. TRICUSPID VALVE The tricuspid valve is grossly normal. There is trace tricuspid regurgitation. AORTIC VALVE The aortic valve opens well. No aortic regurgitation is present. GREAT VESSELS There is mild aortic root dilatation. PERICARDIAL EFFUSION There is no pericardial effusion. Other Information Technically limited study due to body habitus. Conclusion EF >55%
== END | disposition home or self-care (01) ==
LOC: Rad HDHVI 10:09
PROVIDERS: ATTEND Internal Medicine Cardiovascular Disease
DX: I34.0 Nonrheumatic mitral (valve) insufficiency (principal); I11.9 Hypertensive heart disease without heart failure
CPT/HCPCS: 93306

== ENCOUNTER 2024-08-01 07:55 | Inpatient (IN) | payer MEDICARE, BC ==
[~2024-08-01] VITALS: Ht 182.9 cm; Wt 91.1 kg
[2024-08-01 08:20] LABS: Basophils # (auto) 0.1 10 ^3/uL (0-0.2); Basophils % (auto) 0.6 % (0.0-2.0); Eosinophils # (auto) 0 10 ^3/uL (0-0.8); Eosinophils % (auto) 0.5 % (0.0-7.0); Hematocrit 39.6 % (41.0-53.0); Hemoglobin 13.5 g/dL (13.5-17.5); Mean Corpuscular Hemoglobin 32.7 pg (28.0-32.0); Mean Corpuscular Hgb Conc. 34.1 g/dL (32.0-36.0); Mean Corpuscular Volume 96.1 fL (80.0-100.0); Monocytes # (auto) 0.5 10 ^3/uL (0-1.3); Monocytes % (auto) 6.5 % (0.0-12.0); Neutrophils # (auto) 6.4 10 ^3/uL (1.6-8.6); Neutrophils % (auto) 80.4 % (37.0-80.0); Platelet Count (auto) 233 10^3/uL (140-450); Red Blood Cells 4.12 10^6/uL (4.5-5.90); Red Cell Distribution Width 13.3 % (11.8-14.3)
[2024-08-01 08:48] LABS: Alanine Aminotransferase 10 U/L (7-40); Albumin 4.6 g/dL (3.2-4.8); Alkaline Phosphatase 102 U/L (46-116); Anion Gap 8 (5-15); Aspartate Aminotransferase 17 U/L (13-40); Bilirubin, Total 0.8 mg/dL (0.2-1.0); Calcium 9.8 mg/dL (8.7-10.4); Carbon Dioxide 24 mmol/L (20-31); Chloride 104 mmol/L (98-107); Potassium 4.1 mmol/L (3.5-5.1); Sodium 136 mmol/L (136-145)
[2024-08-01 08:49] LABS: Total Protein 7.7 g/dL (5.7-8.2)
[2024-08-01 08:53] LABS: Blood Urea Nitrogen 26 mg/dL (9-23); Glucose 133 mg/dL (74-106)
--- NOTE | 2024-08-01 09:56 | ED.PDOC ---
HPI Comments 83 year old male presents to the ED with chief complaint of chest pain. Patient reports that he was woken up from sleeping around 6am with right sided chest pain and associated SOB, worse with deep breaths. Patient relays that he has history of ID and CVA. Patient states his track sweeper is Dr. Aguilar. Patient notes that he is currently on Eliquis and Plavix along with taking 3 doses of NTG with no relief in pain this morning. Patient denies any N/V, numbness, weakness, headache, dizziness, or cough. Chief Complaint: Chest Pain Time Seen by MD: 09:50 Primary Care Provider: dimas Reviewed Notes: Nurses Notes, Medications, Allergies Allergies: Coded Allergies: NO KNOWN ALLERGIES (Unverified , 12/03/22) Home Meds Reported Medications Apixaban Base (ELIQUIS) 2.5 Mg Tab, 2.5 MG PO BID for stop on 06/08/24 for 30 Days, #60 TAB 04/19/24 Latanoprost (Xalatan) 0.005 % Scarlet, 1 DROP EACHEYE QPM for 75 Days, #7.5 04/18/24 Olmesartan Medoxomil (Olmesartan Medoxomil) 20 Mg Tab, 1 TAB PO DAILY for 90 Days, #90 04/18/24 Hydrochlorothiazide W/Triamter (Dyazide 37.5/25MG) 1 Cap Cp, 1 CAP PO DAILY for EDEMA, #30 CAP 5 Refills 04/11/24 Nitroglycerin (NTROSTAT SUBLINGUAL) 0.4 Mg Sl, 0.4 MG SL PRN for CHEST PAIN, TAB *MAY REPEAT EVERY 5 MINUTES X 3 TOTAL IF NO RELIEF, INITIATE ANALGESIC THERAPY. NOTIFY PHYSICIAN *Do not crush. 04/11/24 Pantoprazole Sodium Sesquihydr (Protonix) 40 Mg Tab, 40 MG PO DAILY, #30 TAB 11/07/22 Allopurinol (ZYLOPRIM TABLET) 100 Mg Tb, 300 MG PO DAILY, TAB 11/07/22 Clopidogrel Bisulfate (Plavix) 75 Mg Tab, 1 TAB PO 2XW, #90 TAB 1 Refill 02/16/15 Simvastatin (Zocor) 40 Mg Tab, 40 MG PO HS 07/05/10 Information Source: Patient Mode of Arrival: Ambulatory Severity: Moderate Timing: Hours Duration: Since onset Prehospital treatment: None Location: Chest (R) Radiation: No Radiation Quality: Sharp Onset: At Rest, While Asleep Cardiac Risk Factors: Hyperlipidemia, HTN PE Risk Factors: None History of: Similar pain in past, ID Associated Signs and Symptoms: SOB Past Medical History PAST MEDICAL HISTORY: CAD, CVA, GERD, High Lipids, HTN, ID Surgical History: PTCA Family History Family History: Reviewed,noncontributory to illness, Unknown Social History Smoker: Non-Smoker Alcohol: Rarely Drugs: Denies Drug Use Lives In: Home Constitutional: denies: chills, diaphoresis, fatigue, fever, malaise, sweats, weakness, others EENTM: denies: blurred vision, double vision, ear bleeding, ear discharge, ear drainage, ear pain, ear ringing, eye pain, eye redness, hearing loss, mouth pain, mouth swelling, nasal discharge, nose bleeding, nose congestion, nose pain, photophobia, tearing, throat pain, throat swelling, voice changes, others Respiratory: reports: shortness of breath; denies: cough, hemoptysis, orthopnea, SOB at rest, SOB with excertion, stridor, wheezing, others Cardiovascular: reports: chest pain; denies: dizzy spells, diaphoresis, Dyspnea on exertion, edema, irregular heart beat, left arm pain, lightheadedness, palpitations, PND, syncope, others Gastrointestinal: denies: abdomen distended, abdominal pain, blood streaked bowels, constipated, diarrhea, dysphagia, difficulty swallowing, hematemesis, melena, nausea, poor appetite, poor fluid intake, rectal bleeding, rectal pain, vomiting, others Genitourinary: denies: burning, dysuria, flank pain, frequency, hematuria, incontinence, penile discharge, penile sore, pain, testicle pain, testicle swelling, urgency, others Neurological: denies: dizziness, fainting, headache, left sided numbness, left sided weakness, numbness, paresthesia, pre-existing deficit, right sided numbness, right sided weakness, seizure, speech problems, tingling, tremors, weakness, others Musculoskeletal: denies: back pain, gout, joint pain, joint swelling, muscle pain, muscle stiffness, neck pain, others Integumetry: denies: bruises, change in color, change in hair/nails, dryness, laceration, lesions, lumps, rash, wounds, others Allergic/Immunocompromised: denies: Difficulty Healing, Frequent Infections, Hives, Itching, others Hematologic/Lymphatic: denies: anemia, blood clots, easy bleeding, easy bruising, swollen glands, others Endocrine: denies: excessive hunger, excessive sweating, excessive thirst, excessive urination, flushing, intolerance to cold, intolerance to heat, unexplained weight gain, unexplained weight loss, others Psychiatric: denies: anxiety, bipolar disorder, depression, hopeless, panic disorder, schizophrenia, sleepless, suicidal, others All Other Systems: Reviewed and Negative Physical Exam General Appearance: No Apparent Distress, Normal HEENT: Normal ENT Inspection, PERRL/EOMI Neck: Full Range of Motion, Non-Tender, Normal, Normal Inspection Respiratory: Chest Non-Tender, Lungs Clear, No Accessory Muscle Use, No Respiratory Distress, Normal Breath Sounds Cardiovascular: No Edema, No JVD, No Murmur, No Gallop, Normal Peripheral Pulses, Regular Rate/Rhythm Breast Exam: Deferred Gastrointestinal: No Organomegaly, Non Tender, No Pulsatile Mass, Normal Bowel Sounds, Soft Genitalia: Deferred Pelvic: Deferred Rectal: Deferred Extremities: No calf tenderness, Normal capillary refill, Normal inspection, Normal range of motion, Non-tender, No pedal edema Musculoskeletal : Apperance: Normal Neurologic: Alert, claim benefit specialist II-XII nml as Tested, No Motor Deficits, Normal Affect, Normal Mood, No Sensory Deficits Cerebellar Function: Normal Reflexes: Normal Skin: Dry, Normal Color, Warm Lymphatic: No Adenopathy EKG EKG : Pulse Rate (adult): 94 [place]: Normal Cardiac Rhythm: NSR Block: None Hypertrophy: None ST: Normal Was a procedure done? Was a procedure done?: No CP Differential Dx Differential Diagnosis: ID, PAC's Differential Diagnosis: HTN Essential, HTN Encephalopathy Differential Diagnosis: Chest Wall Pain, Myocardial Infarction, Pericarditis, Pneumonia X-Ray, Labs, Meds, VS Vital Signs Date Time Temp Pulse Resp B/P (MAP) Pulse Ox O2 Delivery O2 Flow Rate FiO2 08/01/24 11:19 99.7 08/01/24 11:01 99.7 97 16 92/57 (69) 91 99.7 08/01/24 11:00 97 16 92/57 08/01/24 10:58 100 08/01/24 10:20 94 18 110/61 08/01/24 10:19 101.9 08/01/24 10:16 101.9 94 18 110/61 (77) 95 101.9 08/01/24 10:16 94 18 95 Room Air* 0 21 08/01/24 09:56 94 08/01/24 09:20 94 08/01/24 08:00 94 08/01/24 07:56 98.3 92 17 132/70 (90) 95 Lab Test 08/01/24 11:13 08/01/24 09:20 08/01/24 08:10 Range/Units Lactic Acid Level Pending Troponin I High Sensitivity Pending 8 9 </=54 ng/L White Blood Count 8.0 4.4-10.8 10^3/uL Red Blood Count 4.12 L 4.5-5.90 10^6/uL Hemoglobin 13.5 13.5-17.5 g/dL Hematocrit 39.6 L 41.0-53.0 % Mean Corpuscular Volume 96.1 80.0-100.0 fL Mean Corpuscular Hemoglobin 32.7 H 28.0-32.0 pg Mean Corpuscular Hemoglobin Concent 34.1 32.0-36.0 g/dL Red Cell Distribution Width 13.3 11.8-14.3 % Platelet Count 233 140-450 10^3/uL Mean Platelet Volume 7.3 6.9-10.8 fL Neutrophils (%) (Auto) 80.4 H 37.0-80.0 % Lymphocytes (%) (Auto) 12.0 10.0-50.0 % Monocytes (%) (Auto) 6.5 0.0-12.0 % Eosinophils (%) (Auto) 0.5 0.0-7.0 % Basophils (%) (Auto) 0.6 0.0-2.0 % Neutrophils # (Auto) 6.4 1.6-8.6 10 ^3/uL Lymphocytes # (Auto) 1.0 0.4-5.4 10 ^3/uL Monocytes # (Auto) 0.5 0-1.3 10 ^3/uL Eosinophils # (Auto) 0 0-0.8 10 ^3/uL Basophils # (Auto) 0.1 0-0.2 10 ^3/uL Nucleated Red Blood Cells 0.0 % Sodium Level 136 136-145 mmol/L Potassium Level 4.1 3.5-5.1 mmol/L Chloride Level 104 98-107 mmol/L Carbon Dioxide Level 24 20-31 mmol/L Anion Gap 8 5-15 Blood Urea Nitrogen 26 H 9-23 mg/dL Creatinine 1.24 0.700-1.30 mg/dL Glomerular Filtration Rate Calc 58 >90 mL/min BUN/Creatinine Ratio 21.0 H 10.0-20.0 Serum Glucose 133 H 74-106 mg/dL Calcium Level 9.8 8.7-10.4 mg/dL Total Bilirubin 0.8 0.2-1.0 mg/dL Aspartate Amino Transferase (AST) 17 13-40 U/L Alanine Aminotransferase (ALT) 10 7-40 U/L Alkaline Phosphatase 102 46-116 U/L Total Protein 7.7 5.7-8.2 g/dL Albumin 4.6 3.2-4.8 g/dL Current Medications Medications (Trade) Dose Ordered Sig/Darrius Route Start Time Stop Time Status Last Admin Aspirin 324 mg ONCE ONCE PO 08/01/24 08:15 08/01/24 08:16 DC 08/01/24 10:29 Morphine Sulfate 4 mg ONCE ONCE IV 08/01/24 08:15 08/01/24 08:16 DC 08/01/24 10:20 Ondansetron HCl (Zofran) 4 mg ONCE ONCE IV 08/01/24 08:15 08/01/24 08:16 DC 08/01/24 10:20 Acetaminophen (Tylenol Tablet) 650 mg ONCE ONCE PO 08/01/24 10:15 08/01/24 10:16 DC 08/01/24 10:19 Time of 1ST Reevaluation: 10:50 Reevaluation 1ST: Improved Patient Education/Counseling: Diagnosis, Treatment Family Education/Counseling: No Family Present Additional Information I reviewed the following notes from patient's past medical encounters: 06/09/24 for CAD and 04/15/24 for CVA The following tests were ordered, and results were reviewed by me: CBC, CMP, Troponin, UA, EKG, Chest XR I reviewed and agreed with the following test results read by other providers: Chest XR Additional Information was gathered from interviewing the following independent historians: None I discussed treatment and results with medical personnel. Departure 1 Departure Time of Disposition: 11:43 (Patient presented with chest pain that was concerning for possible STEMI, ACS, PE, Pneumonia, Muscle Strain, COPD, Dissection. Data: 1. I ordered and reviewed the result of at least 3 labs i ncluding a CBC, BMP, and Troponin. 2. I independently interpreted the following tests: EKG which shows sinus arrhythmia and Chest X-ray which shows benign chest.Risk:This patient has a high risk of morbidity due to further diagnostic testing or treatment and may suffer from an acute cardiac or respiratory disorder. Workup reveals concern for ACS and patient should be admitted for f urther workup and possible expert consultation. Patient also had a fever but without any obvious source of infection. We will admit patient. Patient is not septic.) Impression: Primary Impression: Acute chest pain Additional Impressions: Fever Qualified Codes: R50.9 - Fever, unspecified Shortness of breath Disposition: 09 ADMITTED INPATIENT Admit to: Med Surg Condition: Serious Critical Care Note Critical Care Time?: Yes Critical care comment: Acute chest pain Authorized and Performed by: Christopher Zamarripa MD Total critical care time: Approximately 41 minutes Due to a high probability of clinically significant, life threatening deterioration, the patient required my highest level of preparedness to intervene emergently and I personally spent this critical care time directly and personally managing the patient. This critical care time included obtaining a history; examining the patient; pulse oximetry; ordering and review of studies; arranging urgent treatment with development of a management plan; evaluation of patient's response to treatment; frequent reassessment; and, discussions with other providers. This critical care time was performed to assess and manage the high probability of imminent, life-threatening deterioration that could result in multi-organ failure. It was exclusive of separately billable procedures and treating other patients and teaching time. Please see my other sections and the rest of the note for further information on patient assessment and treatment. Stability Stability form required: No Heart Score Heart Score: Heart Score Response (Comments) Value History Highly Suspicious 2 EKG Normal 0 Age >65 2 Risk Factors >3 or Hx ASHD 2 Troponin Normal limit 0 Total 6 I personally scribed for CHRISTOPHER ZAMARRIPA MD ([email or web address]) on 08/01/24 at 09:56. Electronically submitted by Job Bhakta ([email or web address]). CHRISTOPHER ZAMARRIPA MD Aug 01, 2024 09:56
[2024-08-01] MEDS: NITROGLYCERIN 0.4 MG SL TAB SL ONE (10:15)
[2024-08-01 10:16] VITALS: PULSE 94; RESP 18; O2SAT 95
[2024-08-01] MEDS: ACETAMINOPHEN 325 MG TAB PO ONE (10:19)
[2024-08-01] MEDS: ONDANSETRON HCL 4 MG/2 ML VIAL IV ONE (10:20)
[2024-08-01] MEDS: MORPHINE SULFATE 4 MG/ML SYR/VIAL IV ONE (10:20)
[2024-08-01] MEDS: ASPirin 81 mg TAB PO ONE (10:29)
--- NOTE | 2024-08-01 10:47 | DVH ---
CHEST RADIOGRAPH Indication: CP Technique: Single frontal view of the chest was obtained Comparison: None FINDINGS: Lines and Tubes: None Lungs: No focal consolidation. Pleura: No effusion. No pneumothorax. Cardiomediastinal contours: Unremarkable Bones: No acute osseous abnormality. IMPRESSION: No acute cardiopulmonary disease.
[2024-08-01] MEDS: SODIUM CHLORIDE 0.9% 1,000 ML IV ONE (12:04)
--- NOTE | 2024-08-01 14:29 | ECG ---
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
[2024-08-01] MEDS ORDERED: NITROGLYCERIN 0.4 MG SL TAB SL PRN (17:00)
[2024-08-01] MEDS ORDERED: MORPHINE SULFATE INJ 2 MG/ml SYRG IV PRN (17:00)
--- NOTE | 2024-08-01 17:20 | DVHHP2 ---
History of Present Illness Reason for Visit: Chest Pain History of Present Illness Castillo Olivier is an 83-year-old male with past medical history of RI, CAD, TIA, gout, hypertension, and hyperlipidemia, who came in with complaints of chest pain. Patient states he was woken up this morning by the chest pain. He describes it as being sharp, on his right side, and associated with shortness of breath. Patient has a significant cardiac history with recent PTCA in May of [address] Aguilar. He had a thrombectomy and a stent placed in the RCA. Patient is on Plavix and eliquis and states he is compliant with his medications. Recent ECHO shows EF of 55%. Patient presented to the ER with a fever. Denies any sick contacts. Denies any cough, nausea, vomiting, diarrhea, diaphoresis, or dysuria. 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 Rheumatologic: Gout Past Surgical History: Hernia Repair, Other (right hand) Smoke: No ALCOHOL: none Drugs: None Lives: Friends Domestic Violence: Neg Review of Systems Constitutional: No: Fever, Chills, Sweats, Weakness, Malaise, Other Eyes: No: Pain, Vision change, Conjunctivae inflammation, Eyelid inflammation, Other, Redness ENT: No: Ear pain, Ear discharge, Nose pain, Nose discharge, Nose congestion, Mouth pain, Mouth swelling, Throat pain, Throat swelling, Other Respiratory: Shortness of breath, SOB with excertion, Pleuritic Pain; No: Cough, Dry, Wheezing, Hemoptysis, Sputum, Wheezing, Other Cardiovascular: Chest Pain, Palpitations; No: Orthopnea, Paroxysmal Noc. Dyspnea, Edema, Lt Headedness, Other Gastrointestinal: No: Nausea, Vomiting, Abdominal Pain, Diarrhea, Constipation, Melena, Hematochezia, Other Genitourinary: No Dysuria, No Frequency, No Incontinence, No Hematuria, No Retention, No Other Musculoskeletal: No: other, neck pain, shoulder pain, arm pain, back pain, hand pain, leg pain, foot pain Skin: No: Rash, Lesions, Jaundice, Bruising, Other Neurological: No: Weakness, Numbness, Incoordination, Change in speech, Confusion, Seizures, Other Allergies: Coded Allergies: NO KNOWN ALLERGIES (Unverified , 12/03/22) Medications Current Medications Medications Dose Ordered Sig/Darrius Route Start Time Stop Time Status Last Admin Dose Admin Sodium Chloride 10 ml Q8HR IV 08/01/24 22:00 UNV Acetaminophen/ Hydrocodone Bitart 1 tab Q4HP PRN PO 08/01/24 17:00 UNV Ondansetron HCl 4 mg Q4HP PRN IV 08/01/24 17:00 UNV Docusate Sodium 100 mg BIDPRN PRN PO 08/01/24 17:00 UNV Acetaminophen 650 mg Q6HP PRN PO 08/01/24 17:00 UNV Nitroglycerin 0.4 mg Q5MINP PRN SL 08/01/24 17:00 UNV Morphine Sulfate 2 mg Q30M PRN IV 08/01/24 17:00 UNV Allopurinol 300 mg DAILY PO 08/02/24 10:00 UNV Apixaban 2.5 mg BID PO 08/01/24 22:00 UNV Clopidogrel Bisulfate 75 mg 2XW PO 08/04/24 12:00 UNV Latanoprost 1 drop QPM EACHEYE 08/01/24 18:00 UNV Pantoprazole Sodium 40 mg DAILY PO 08/02/24 10:00 UNV Patient Own Medication 1 cap DAILY PO 08/02/24 10:00 UNV Patient Own Medication 1 tab DAILY PO 08/02/24 10:00 UNV Patient Own Medication 40 mg HS PO 08/01/24 22:00 UNV Exam Vital Signs Vital Signs Date Time Temp Pulse Resp B/P (MAP) Pulse Ox O2 Delivery O2 Flow Rate FiO2 08/01/24 11:19 99.7 08/01/24 11:01 97 16 92/57 (69) 91 08/01/24 10:16 Room Air* 0 21 General Appearance: Alert, Oriented X3, Cooperative, moderate distress HEENT: Atraumatic, PERRLA Respiratory: Clear to auscultation, Normal air movement Cardiovascular: Regular rate, Normal S1, Normal S2, No murmurs Abdominal: Normal bowel sounds, Soft, No tenderness Extremities: No clubbing, No cyanosis, No edema, Normal pulses Skin: No rashes, No breakdown, No significant lesion Neuro: Other (decreased strength) Psych/Mental Status: Mental status NL, Mood NL Labs/Xrays Labs Test 08/01/24 11:13 08/01/24 08:10 Range/Units Lactic Acid Level 1.5 0.4-2.0 mmol/L Troponin I High Sensitivity 9 </=54 ng/L White Blood Count 8.0 4.4-10.8 10^3/uL Red Blood Count 4.12 L 4.5-5.90 10^6/uL Hemoglobin 13.5 13.5-17.5 g/dL Hematocrit 39.6 L 41.0-53.0 % Mean Corpuscular Volume 96.1 80.0-100.0 fL Mean Corpuscular Hemoglobin 32.7 H 28.0-32.0 pg Mean Corpuscular Hemoglobin Concent 34.1 32.0-36.0 g/dL Red Cell Distribution Width 13.3 11.8-14.3 % Platelet Count 233 140-450 10^3/uL Mean Platelet Volume 7.3 6.9-10.8 fL Neutrophils (%) (Auto) 80.4 H 37.0-80.0 % Lymphocytes (%) (Auto) 12.0 10.0-50.0 % Monocytes (%) (Auto) 6.5 0.0-12.0 % Eosinophils (%) (Auto) 0.5 0.0-7.0 % Basophils (%) (Auto) 0.6 0.0-2.0 % Neutrophils # (Auto) 6.4 1.6-8.6 10 ^3/uL Lymphocytes # (Auto) 1.0 0.4-5.4 10 ^3/uL Monocytes # (Auto) 0.5 0-1.3 10 ^3/uL Eosinophils # (Auto) 0 0-0.8 10 ^3/uL Basophils # (Auto) 0.1 0-0.2 10 ^3/uL Nucleated Red Blood Cells 0.0 % Sodium Level 136 136-145 mmol/L Potassium Level 4.1 3.5-5.1 mmol/L Chloride Level 104 98-107 mmol/L Carbon Dioxide Level 24 20-31 mmol/L Anion Gap 8 5-15 Blood Urea Nitrogen 26 H 9-23 mg/dL Creatinine 1.24 0.700-1.30 mg/dL Glomerular Filtration Rate Calc 58 >90 mL/min BUN/Creatinine Ratio 21.0 H 10.0-20.0 Serum Glucose 133 H 74-106 mg/dL Calcium Level 9.8 8.7-10.4 mg/dL Total Bilirubin 0.8 0.2-1.0 mg/dL Aspartate Amino Transferase (AST) 17 13-40 U/L Alanine Aminotransferase (ALT) 10 7-40 U/L Alkaline Phosphatase 102 46-116 U/L Total Protein 7.7 5.7-8.2 g/dL Albumin 4.6 3.2-4.8 g/dL CHEST RADIOGRAPH FINDINGS: Lines and Tubes: None Lungs: No focal consolidation. Pleura: No effusion. No pneumothorax. Cardiomediastinal contours: Unremarkable Bones: No acute osseous abnormality. IMPRESSION: No acute cardiopulmonary disease. 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 Procedure Category Date Status Time Admit ADMIT 08/01/24 Transmitted 16:55 Code Status CODE 08/01/24 Transmitted 16:55 Sodium Chloride Lock PHA 08/01/24 Logged (Saline Lock Ns) 22:00 Hydrocodone-Acet PHA 08/01/24 Logged 5/325mg Tab ([place] 17:00 Ondansetron Hcl PHA 08/01/24 Logged (Zofran) 17:00 Docusate Sodium PHA 08/01/24 Logged Capsule (Colace 17:00 Complete Blood Count LAB 08/02/24 Verified 04:00 Comprehensive LAB 08/02/24 Verified Metabolic Panel 04:00 Cardiac DIET 08/01/24 Transmitted Diet-2gna,Lofat,Lochol Dinner Condition: Serious DARIUS 08/01/24 In Process 16:55 Acetaminophen Tablet PHA 08/01/24 Logged (Tylenol Tablet) 17:00 Nitroglycerin PHA 08/01/24 Logged Sublingual (Ntrostat 17:00 Morphine Sulfate PHA 08/01/24 Logged Injection 17:00 Stat Ekg For Chest DARIUS 08/01/24 In Process Pain 16:55 Notify Of Changes DARIUS 08/01/24 In Process From Base 16:55 Medical Administrative Specialist For DARIUS 08/01/24 In Process 24 Hours 16:55 Emergency Dysrhythmia DARIUS 08/01/24 In Process Protocol 16:55 Rhythm Strips Once DARIUS 08/01/24 In Process Every Shift 16:55 Oxygen By Nasal RT 08/01/24 Transmitted Cannula 16:55 Allopurinol Tablet PHA 08/02/24 Logged (Zyloprim Tablet) 10:00 Apixaban (Eliquis) PHA 08/01/24 Logged 22:00 Clopidogrel Bisulfate PHA 08/04/24 Logged (Plavix) 12:00 Latanoprost (Xalatan) PHA 08/01/24 Logged 18:00 Pantoprazole Tablet PHA 08/02/24 Logged (Protonix Tablet) 10:00 (NF) PHA 08/02/24 Logged Hydrochlorothiazide 10:00 (Nf) Olmesartan PHA 08/02/24 Logged Medoxomil 10:00 (Nf) Simvastatin PHA 08/01/24 Logged (Zocor) 22:00 *Cons[address] Dr[address] Aguilar CONS 08/01/24 Transmitted [place] 16:59 Date of Service: Aug 01, 2024 Billing Provider: GATITO CROCKER Common Visit Codes: 31902-GQHQOWS INP/OBS CARE (MOD) GATITO CROCKER Aug 01, 2024 17:20
--- NOTE | 2024-08-01 17:32 | DVHPN2 ---
Progress Note - Dictate Date Seen: Aug 01, 2024 Medical Necessity Reason Pt with a Central, PICC or Fol: No Subjective PT WITH CHEST PAIN PLEURITIC HTN CAD RIGHT PARIETAL CVA GOUT HYPERTENSIVE HEART DISEASE vital signs Vital Sign Date Time Temp Pulse Resp B/P (MAP) Pulse Ox O2 Delivery O2 Flow Rate FiO2 08/01/24 11:19 99.7 08/01/24 11:01 97 16 92/57 (69) 91 08/01/24 10:16 Room Air* 0 21 medications Current Medications Medications Dose Ordered Sig/Darrius Route Start Time Stop Time Status Last Admin Dose Admin Sodium Chloride 10 ml Q8HR IV 08/01/24 22:00 UNV Acetaminophen/ Hydrocodone Bitart 1 tab Q4HP PRN PO 08/01/24 17:00 UNV Ondansetron HCl 4 mg Q4HP PRN IV 08/01/24 17:00 UNV Docusate Sodium 100 mg BIDPRN PRN PO 08/01/24 17:00 UNV Acetaminophen 650 mg Q6HP PRN PO 08/01/24 17:00 UNV Nitroglycerin 0.4 mg Q5MINP PRN SL 08/01/24 17:00 UNV Morphine Sulfate 2 mg Q30M PRN IV 08/01/24 17:00 UNV Allopurinol 300 mg DAILY PO 08/02/24 10:00 UNV Apixaban 2.5 mg BID PO 08/01/24 22:00 UNV Clopidogrel Bisulfate 75 mg 2XW PO 08/04/24 12:00 UNV Latanoprost 1 drop QPM EACHEYE 08/01/24 18:00 UNV Pantoprazole Sodium 40 mg DAILY PO 08/02/24 10:00 UNV Patient Own Medication 1 cap DAILY PO 08/02/24 10:00 UNV Patient Own Medication 1 tab DAILY PO 08/02/24 10:00 UNV Patient Own Medication 40 mg HS PO 08/01/24 22:00 UNV objective HEENT: Pupils are reactive. Funduscopic exam shows no AV nicking, no exudates, no papilledema is noted. Tympanic membranes are negative. Sinuses are nontender. Nasal passages are intact. Oral mucosa moist. Posterior pharynx without any exudates. NECK: No cervical adenopathy. No supraclavicular adenopathy. Carotid pulses are 2+ symmetrical, normal upstroke and contour. No JVD appreciated. No nuchal rigidity. Thyroid is within normal limits. PULMONARY: Clear to auscultation in all lung ko. Tympanic to percussion. Negative for rhonchi or wheezing. Negative for egophony. CARDIOVASCULAR: Regular rate. There is a soft 2/6 systolic murmur along the left sternal border. PMI is not displaced. ABDOMEN: Soft, nontender. Normal bowel sounds. No epigastric tenderness, no CVA tenderness. Liver approximately 5 cm by percussion. Spleen tip nonpalpable. However, the patient does have some mild suprapubic tenderness because of the right inguinal hernia. Stool guaiac is negative. EXTREMITIES: 2+ pulses, no edema noted. laboratory and microbiology Laboratory Tests 08/01/24 08:10 Test 08/01/24 08:10 Range/Units Serum Glucose 133 H 74-106 mg/dL Problem List CHEST PAIN PLEURITIC HTN CAD RIGHT PARIETAL CVA GOUT HYPERTENSIVE HEART DISEASE Assessment/Plan CTA CHEST TROPONIN NEGATIVE Plan discussed with: Patient RANDY VERMA MD Aug 01, 2024 17:32
[2024-08-01] MEDS: LATANOPROST 0.005 % OPTH(EYE) SOL 2.5ML EACHEYE SCH (18:00)
[2024-08-01] MEDS: HYDROcodone-ACET 5/325MG TAB PO PRN (19:25)
[2024-08-01] MEDS: IOHEXOL 350 MG/ML 100ML IJ ONE ×2 (19:45→20:08)
[2024-08-01 20:00] VITALS: PULSE 81
--- NOTE | 2024-08-01 21:19 | DVH ---
EXAM: CT CT ANGIO CHEST CONTRAST History: CHEST PAIN R/O PE Comparison Study: None TECHNIQUE: A digital basic acoustic analyst image was obtained. During the uneventful, intravenous administration of c ontrast material, multislice data acquisition was obtained through the chest. 3-D postprocessing is performed by technologist including MIP imaging Radiation Dose : CTDI vol 25.19 mGy, DLP 1027.62 mGy*cm. Findings: Lungs: The lungs are clear. Pleura: Unremarkable Heart/Great vessels: Cardiomegaly with small to moderate pericardial effusion. No pulmonary embolism, aneurysm, or dissection. Severe coronary atherosclerosis versus stents. Mediastinum: Unremarkable Soft tissues/Bones: Mild multilevel degenerative changes of the thoracic spine. Cholelithiasis. Hepatic cysts. The partially visualized upper abdomen is within normal limits. Impression: 1. No evidence of a pulmonary embolism, aneurysm, or dissection. 2. Cardiomegaly with small to moderate pericardial effusion
[2024-08-01 21:47] VITALS: BP 112/64; PULSE 68; RESP 19; TEMP 98.5; O2SAT 95
[2024-08-01] MEDS ORDERED: SIMVASTATIN 40 MG PO SCH (22:00)
[2024-08-01] MEDS: SODIUM CHLOR 0.9% PF (SALINE LOCK) 10ML VIAL/SYR IV SCH (22:22)
[2024-08-01] MEDS: APIXABAN 2.5 MG TAB PO SCH (22:23)
[2024-08-01 22:24] VITALS: BP 112/64; PULSE 68; RESP 19; TEMP 98.5; O2SAT 95
[2024-08-02] VITALS (8 sets, daily range): BP systolic 101–106; BP diastolic 61–70; PULSE 68–95; RESP 17–20; TEMP 98.2–100; O2SAT 91–97
--- NOTE | 2024-08-02 01:36 | ECG ---
[facility] Test Date: 2024-08-01 Test Time: 09:20:58 Pat Name: PRASANTH GRAVES Department: ER Room: 0294T Gender: M Social Service Manager: DOMINIC : 1940 Requested By: EMERGENCY EMERGENCY Order Number: [id number] Reading MD: Prasanth Carlos Measurements Intervals [place] Rate: 94 P: 81 SD: 194 QRS: -42 QRSD: 146 T: -13 QT: 403 QTc: 505 Interpretive Statements Sinus rhythm Right bundle branch block Inferior infarct, age indeterminate Electronically Signed On 08-04-2024 10:40:16 PST by Prasanth Carlos Please click the below link to view image of tracing.
--- NOTE | 2024-08-02 01:36 | ECG ---
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
[2024-08-02] MEDS ORDERED: VANCOMYCIN PER PHARMACY 0 MG IV SCH (07:00)
[2024-08-02 07:42] LABS: Basophils # (auto) 0 10 ^3/uL (0-0.2); Basophils % (auto) 0.1 % (0.0-2.0); Eosinophils # (auto) 0 10 ^3/uL (0-0.8); Eosinophils % (auto) 0.1 % (0.0-7.0); Hematocrit 35.7 % (41.0-53.0); Lymphocytes # (auto) 0.5 10 ^3/uL (0.4-5.4); Lymphocytes % (auto) 4.2 % (10.0-50.0); Mean Corpuscular Hemoglobin 32.4 pg (28.0-32.0); Mean Corpuscular Hgb Conc. 33.7 g/dL (32.0-36.0); Mean Corpuscular Volume 96.1 fL (80.0-100.0); Monocytes # (auto) 1.1 10 ^3/uL (0-1.3); Monocytes % (auto) 9.3 % (0.0-12.0); Neutrophils # (auto) 10.4 10 ^3/uL (1.6-8.6); Neutrophils % (auto) 86.3 % (37.0-80.0); Platelet Count (auto) 200 10^3/uL (140-450); Red Blood Cells 3.71 10^6/uL (4.5-5.90); Red Cell Distribution Width 13.8 % (11.8-14.3)
[2024-08-02 07:48] LABS: Alanine Aminotransferase 13 U/L (7-40); Alkaline Phosphatase 89 U/L (46-116); Anion Gap 10 (5-15); BUN/Creatinine Ratio 23.4 (10.0-20.0); Calcium 9.4 mg/dL (8.7-10.4); Carbon Dioxide 22 mmol/L (20-31); Chloride 100 mmol/L (98-107); Potassium 4.3 mmol/L (3.5-5.1)
[2024-08-02 07:49] LABS: Total Protein 6.6 g/dL (5.7-8.2)
[2024-08-02 07:59] LABS: Aspartate Aminotransferase 40 U/L (13-40); Bilirubin, Total 1.2 mg/dL (0.2-1.0); Blood Urea Nitrogen 33 mg/dL (9-23); Glucose 120 mg/dL (74-106); Sodium 132 mmol/L (136-145)
[2024-08-02] MEDS ORDERED: VANCOMYCIN 1GM/250ML KIT 250 ML IV SCH (08:00)
[2024-08-02] MEDS: ceFAZolin 1GM/50ML 50 ML IV ONE (08:06)
[2024-08-02] MEDS: ALLOPURINOL 100 MG TAB PO SCH (09:14)
[2024-08-02] MEDS: PANTOPRAZOLE 40 MG TAB PO SCH (09:15)
[2024-08-02] MEDS: HYDROCHLOROTHIAZIDE PO SCH (09:17)
[2024-08-02] MEDS: TRIAMTER PO SCH (09:17)
[2024-08-02] MEDS: OLMESARTAN MEDOXOMIL PO SCH (09:18)
[2024-08-02] MEDS: VANCOMYCIN 1GM/250ML KIT 250 ML IV SCH (09:34)
[2024-08-02 11:45] LABS: Urine Bacteria None Seen /hpf (None Seen)
[2024-08-02 12:18] LABS: Urine Blood Negative /uL (Negative); Urine Clarity Clear (Clear); Urine Color Light-Orange (Yellow); Urine Protein, UAD 1+ (Negative); Urine Squamous Epithelial Cell FEW /hpf (<5); Urine Urobilinogen Normal (Negative); Urine WBC < 1 /HPF (0-3)
[2024-08-02] MEDS: ONDANSETRON HCL 4 MG/2 ML VIAL IV PRN (12:21)
[2024-08-02 12:24] LABS: Urine Specific Gravity > 1.050 (1.001-1.035)
[2024-08-02] MEDS: PANTOPRAZOLE 40 MG/10 ML VIAL INJ IV ONE (13:15)
[2024-08-02] MEDS: SODIUM CHLORIDE 0.9% 1,000 ML IV SCH (13:15)
--- NOTE | 2024-08-02 13:17 | DVHPN2 ---
Progress Note Date Seen: Aug 02, 2024 Medical Necessity Reason Pt with a Central, PICC or Fol: No Subjective Patient reports: No new complaints Review of Systems: HEENT:Normal, CVS:Normal, RESPIRATORY:Normal, GI:Normal, :Normal, MSK:Normal, NEURO:Normal Objective vital signs Vital Sign Date Time Temp Pulse Resp B/P (MAP) Pulse Ox O2 Delivery O2 Flow Rate FiO2 08/02/24 12:50 98.8 77 17 104/66 (79) 92 98.8 08/02/24 08:00 Room Air* 0 21 Total Intake and Output 08/01/24 08/01/24 08/02/24 15:00 23:00 07:00 Intake Total 700 ml Balance 700 ml medications Current Medications Medications Dose Ordered Sig/Darrius Route Start Time Stop Time Status Last Admin Dose Admin Sodium Chloride 10 ml Q8HR IV 08/01/24 22:00 08/02/24 05:38 10 ML Acetaminophen/ Hydrocodone Bitart 1 tab Q4HP PRN PO 08/01/24 17:00 08/02/24 13:13 1 TAB Ondansetron HCl 4 mg Q4HP PRN IV 08/01/24 17:00 08/02/24 12:21 4 MG Docusate Sodium 100 mg BIDPRN PRN PO 08/01/24 17:00 Acetaminophen 650 mg Q6HP PRN PO 08/01/24 17:00 Nitroglycerin 0.4 mg Q5MINP PRN SL 08/01/24 17:00 Morphine Sulfate 2 mg Q30M PRN IV 08/01/24 17:00 Allopurinol 300 mg DAILY PO 08/02/24 10:00 08/02/24 09:14 300 MG Apixaban 2.5 mg BID PO 08/01/24 22:00 08/02/24 09:15 2.5 MG Clopidogrel Bisulfate 75 mg 2XW PO 08/04/24 12:00 Latanoprost 1 drop QPM EACHEYE 08/01/24 18:00 08/01/24 18:00 1 DROP Pantoprazole Sodium 40 mg DAILY PO 08/02/24 10:00 08/02/24 09:15 40 MG Patient Own Medication 1 cap DAILY PO 08/02/24 10:00 Patient Own Medication 1 tab DAILY PO 08/02/24 10:00 Cefazolin Sodium 50 ml @ 100 mls/hr Q8H IV 08/02/24 16:00 Vancomycin HCl 0 ml @ 0 mls/hr UD IV 08/02/24 07:00 Examination: GENERAL:Normal, HEENT:Normal, NECK:Normal, LUNGS:Normal, CVS:Normal, ABDOMEN:Normal, MSK:Normal, SKIN:Normal, NEURO:Normal, :Normal laboratory and microbiology Laboratory Tests 08/02/24 06:22 Test 08/02/24 06:22 Range/Units Serum Glucose 120 H 74-106 mg/dL Microbiology Date/Time Source Procedure Growth Status 08/01/24 11:13 Blood Blood Culture - Preliminary Resulted Problem List/Assessment/Plan Problem List/Assessment/Plan #1 sepsis with gallstones: iv antibiotics, ivf, surg eval #2 cad s/p stents: will dw dr Aguilar #3 htn #4 h/o cva #5 gout #6 acute renal failure ?vasomotor nephropathy advance care planning- full code-time spent 19 mins Plan discussed with: Patient, Spouse My Orders My Orders Orders - JANNA PALUMBO MD Procedure Category Date Status Time Ceftriaxone Ivpb PHA 08/03/24 Verified Rocephin 09:00 Metronidazole Ivpb PHA 08/02/24 Verified Flagyl 14:00 Full Liq Diet DIET 08/02/24 Verified Lunch Morphine Sulfate PHA 08/02/24 Verified Injection 13:15 Pantoprazole PHA 08/03/24 Verified (Protonix) 10:00 Pantoprazole PHA 08/02/24 Verified (Protonix) 13:15 * Surgical Consult CONS 08/02/24 Verified NS PHA 08/02/24 Verified 13:15 Date of Service: Aug 02, 2024 Billing Provider: JANNA PALUMBO MD Common Visit Codes: [id number] INP/OBS CARE(HIGH) Secondary Visit Codes: [id number] CARE PLAN 30 MINUTES JANNA PALUMBO MD Aug 02, 2024 13:17
--- NOTE | 2024-08-02 13:40 | DVHPN2 ---
Progress Note - Dictate Date Seen: Aug 02, 2024 Medical Necessity Reason Pt with a Central, PICC or Fol: No Subjective PT WITH CHEST PAIN PLEURITIC HTN CAD RIGHT PARIETAL CVA GOUT HYPERTENSIVE HEART DISEASE vital signs Vital Sign Date Time Temp Pulse Resp B/P (MAP) Pulse Ox O2 Delivery O2 Flow Rate FiO2 08/02/24 12:50 98.8 77 17 104/66 (79) 92 98.8 08/02/24 08:00 Room Air* 0 21 Total Intake and Output 08/01/24 08/01/24 08/02/24 15:00 23:00 07:00 Intake Total 700 ml Balance 700 ml medications Current Medications Medications Dose Ordered Sig/Darrius Route Start Time Stop Time Status Last Admin Dose Admin Sodium Chloride 10 ml Q8HR IV 08/01/24 22:00 08/02/24 13:15 10 ML Acetaminophen/ Hydrocodone Bitart 1 tab Q4HP PRN PO 08/01/24 17:00 08/02/24 13:13 1 TAB Ondansetron HCl 4 mg Q4HP PRN IV 08/01/24 17:00 08/02/24 12:21 4 MG Docusate Sodium 100 mg BIDPRN PRN PO 08/01/24 17:00 Acetaminophen 650 mg Q6HP PRN PO 08/01/24 17:00 Nitroglycerin 0.4 mg Q5MINP PRN SL 08/01/24 17:00 Morphine Sulfate 2 mg Q30M PRN IV 08/01/24 17:00 Allopurinol 300 mg DAILY PO 08/02/24 10:00 08/02/24 09:14 300 MG Clopidogrel Bisulfate 75 mg 2XW PO 08/04/24 12:00 Latanoprost 1 drop QPM EACHEYE 08/01/24 18:00 08/01/24 18:00 1 DROP Vancomycin HCl 0 ml @ 0 mls/hr UD IV 08/02/24 07:00 Ceftriaxone Sodium 50 ml @ 100 mls/hr DAILY@09 IV 08/03/24 09:00 Metronidazole 100 ml @ 100 mls/hr Q8HR IV 08/02/24 14:00 Morphine Sulfate 1 mg Q4HP PRN IV 08/02/24 13:15 Pantoprazole Sodium 40 mg DAILY IV 08/03/24 10:00 Sodium Chloride 1,000 ml @ 75 mls/hr [id number] IV 08/02/24 13:15 objective HEENT: Pupils are reactive. Funduscopic exam shows no AV nicking, no exudates, no papilledema is noted. Tympanic membranes are negative. Sinuses are nontender. Nasal passages are intact. Oral mucosa moist. Posterior pharynx without any exudates. NECK: No cervical adenopathy. No supraclavicular adenopathy. Carotid pulses are 2+ symmetrical, normal upstroke and contour. No JVD appreciated. No nuchal rigidity. Thyroid is within normal limits. PULMONARY: Clear to auscultation in all lung ko. Tympanic to percussion. Negative for rhonchi or wheezing. Negative for egophony. CARDIOVASCULAR: Regular rate. There is a soft 2/6 systolic murmur along the left sternal border. PMI is not displaced. ABDOMEN: Soft, nontender. Normal bowel sounds. No epigastric tenderness, no CVA tenderness. Liver approximately 5 cm by percussion. Spleen tip nonpalpable. However, the patient does have some mild suprapubic tenderness because of the right inguinal hernia. Stool guaiac is negative. EXTREMITIES: 2+ pulses, no edema noted. laboratory and microbiology Laboratory Tests 08/02/24 06:22 Test 08/02/24 06:22 Range/Units Serum Glucose 120 H 74-106 mg/dL Problem List CHEST PAIN PLEURITIC HTN CAD RIGHT PARIETAL CVA GOUT HYPERTENSIVE HEART DISEASE Assessment/Plan CTA CHEST TROPONIN NEGATIVE CT SHOWS CHOLELITHIASIS POSITIVE BOOD CX START ABX MAY PROCEED WITH SURGERY ASA II STRESS CARDIOLITE NEGATIVE FOR ISCHEMIA Plan discussed with: Patient Critical Care Time(min): 35 RANDY VERMA MD Aug 02, 2024 13:40
[2024-08-02] MEDS: metroNIDAZOLE 500MG/100ML 100 ML IV SCH (15:44)
--- NOTE | 2024-08-02 15:44 | DVH ---
EXAM: US LIVER CLINICAL HISTORY: GALLSTONES TECHNIQUE: Grayscale and limited color flow doppler ultrasound of the right upper quadrant is perfor med. COMPARISON: None Findings: Liver measures 17.5 cm in length with normal echotexture and contour. No evidence of focal hepatic l esions or intra- or extrahepatic ductal dilatation. 3.0 x 2.6 x 3.0 cm anechoic lesion in the right h epatic lobe. Common bile duct measures 0.4 cm in diameter. Normal hepatopedal flow noted within the portal vein. N o perihepatic free fluid is noted. Gallbladder appears within normal limits with gallbladder wall thickness measuring 0.3 cm. There are shadowing calculi. No evidence of biliary sludge or pericholecystic fluid. Negative sonographic Murp hy's sign. Pancreas only partially visualized due to overlying bowel gas but is otherwise unremarkable . Right kidney measures 8.7 cm with normal contours, echotexture and cortical thickness. No evidence of hydronephrosis, calculi, cystic or solid renal lesions. Partially visualized inferior vena cava unremarkable. Impression: 1. No evidence of acute right upper quadrant abnormalities. 2. Cholelithiasis without evidence of acute cholecystitis. 3. Right hepatic cyst.
[2024-08-02] MEDS ORDERED: ceFAZolin 1GM/50ML 50 ML IV SCH (16:00)
[2024-08-03] VITALS (8 sets, daily range): BP systolic 87–109; BP diastolic 54–67; PULSE 68–84; RESP 16–20; TEMP 98–100.1; O2SAT 94–96
[2024-08-03 07:49] LABS: Basophils # (auto) 0 10 ^3/uL (0-0.2); Basophils % (auto) 0.2 % (0.0-2.0); Eosinophils # (auto) 0 10 ^3/uL (0-0.8); Eosinophils % (auto) 0.2 % (0.0-7.0); Hematocrit 34.8 % (41.0-53.0); Hemoglobin 11.6 g/dL (13.5-17.5); Lymphocytes # (auto) 0.5 10 ^3/uL (0.4-5.4); Lymphocytes % (auto) 3.8 % (10.0-50.0); Mean Corpuscular Hemoglobin 32.2 pg (28.0-32.0); Mean Corpuscular Hgb Conc. 33.5 g/dL (32.0-36.0); Mean Corpuscular Volume 96.3 fL (80.0-100.0); Monocytes # (auto) 1.1 10 ^3/uL (0-1.3); Monocytes % (auto) 8.5 % (0.0-12.0); Neutrophils # (auto) 11.5 10 ^3/uL (1.6-8.6); Neutrophils % (auto) 87.3 % (37.0-80.0); Nucleated Red Blood Cells % 0.1 %; Platelet Count (auto) 195 10^3/uL (140-450); Red Blood Cells 3.61 10^6/uL (4.5-5.90); Red Cell Distribution Width 13.8 % (11.8-14.3); White Blood Cell 13.2 10^3/uL (4.4-10.8)
[2024-08-03 07:54] LABS: INR 1.15 (0.9-1.15)
[2024-08-03 09:13] LABS: Alanine Aminotransferase 11 U/L (7-40); Alkaline Phosphatase 87 U/L (46-116); Anion Gap 10 (5-15); BUN/Creatinine Ratio 20.5 (10.0-20.0); Calcium 9.3 mg/dL (8.7-10.4); Carbon Dioxide 20 mmol/L (20-31); Chloride 100 mmol/L (98-107); Potassium 4.7 mmol/L (3.5-5.1)
[2024-08-03] MEDS: PANTOPRAZOLE 40 MG/10 ML VIAL INJ IV SCH (09:13)
[2024-08-03] MEDS: cefTRIAXone 1GM/50ML D5W 50 ML IV SCH (09:13)
[2024-08-03 09:14] LABS: Albumin 3.7 g/dL (3.2-4.8); Aspartate Aminotransferase 27 U/L (13-40)
[2024-08-03 09:15] LABS: Bilirubin, Total 0.8 mg/dL (0.2-1.0); Blood Urea Nitrogen 39 mg/dL (9-23); Glucose 119 mg/dL (74-106); Sodium 130 mmol/L (136-145); Total Protein 6.4 g/dL (5.7-8.2)
[2024-08-03] MEDS: DOCUSATE SOD 100 MG CAP PO PRN (11:04)
--- NOTE | 2024-08-03 11:50 | DVHPN2 ---
Progress Note Date Seen: Aug 03, 2024 Medical Necessity Reason Pt with a Central, PICC or Fol: No Subjective Patient reports: No new complaints Review of Systems: HEENT:Normal, CVS:Normal, RESPIRATORY:Normal, GI:Normal, :Normal, MSK:Normal, NEURO:Normal Objective vital signs Vital Sign Date Time Temp Pulse Resp B/P (MAP) Pulse Ox O2 Delivery O2 Flow Rate FiO2 08/03/24 08:38 98.0 72 16 97/57 (70) 96 98.0 08/02/24 20:00 Nasal Cannula* 3 32 Total Intake and Output 08/02/24 08/02/24 08/03/24 15:00 23:00 07:00 Intake Total 800 ml 600 ml Balance 800 ml 600 ml medications Current Medications Medications Dose Ordered Sig/Darrius Route Start Time Stop Time Status Last Admin Dose Admin Sodium Chloride 10 ml Q8HR IV 08/01/24 22:00 08/03/24 05:43 10 ML Acetaminophen/ Hydrocodone Bitart 1 tab Q4HP PRN PO 08/01/24 17:00 08/03/24 05:38 1 TAB Ondansetron HCl 4 mg Q4HP PRN IV 08/01/24 17:00 08/02/24 12:21 4 MG Docusate Sodium 100 mg BIDPRN PRN PO 08/01/24 17:00 08/03/24 11:04 100 MG Acetaminophen 650 mg Q6HP PRN PO 08/01/24 17:00 Nitroglycerin 0.4 mg Q5MINP PRN SL 08/01/24 17:00 Morphine Sulfate 2 mg Q30M PRN IV 08/01/24 17:00 Allopurinol 300 mg DAILY PO 08/02/24 10:00 08/03/24 09:12 300 MG Clopidogrel Bisulfate 75 mg 2XW PO 08/04/24 12:00 Latanoprost 1 drop QPM EACHEYE 08/01/24 18:00 08/02/24 17:48 1 DROP Vancomycin HCl 0 ml @ 0 mls/hr UD IV 08/02/24 07:00 Ceftriaxone Sodium 50 ml @ 100 mls/hr DAILY@09 IV 08/03/24 09:00 08/03/24 09:13 100 MLS/HR Metronidazole 100 ml @ 100 mls/hr Q8HR IV 08/02/24 14:00 08/03/24 05:37 100 MLS/HR Morphine Sulfate 1 mg Q4HP PRN IV 08/02/24 13:15 Pantoprazole Sodium 40 mg DAILY IV 08/03/24 10:00 08/03/24 09:13 40 MG Sodium Chloride 1,000 ml @ 75 mls/hr [id number] IV 08/02/24 13:15 08/03/24 04:24 75 MLS/HR Examination: GENERAL:Normal, HEENT:Normal, NECK:Normal, LUNGS:Normal, CVS:Normal, ABDOMEN:Normal, MSK:Normal, SKIN:Normal, NEURO:Normal, :Normal laboratory and microbiology Laboratory Tests 08/03/24 06:35 Test 08/03/24 06:35 Range/Units Serum Glucose 119 H 74-106 mg/dL Microbiology Date/Time Source Procedure Growth Status 08/01/24 11:13 Blood Blood Culture - Preliminary Resulted Problem List/Assessment/Plan Problem List/Assessment/Plan #1 sepsis with gallstones: iv antibiotics, ivf, surg in am #2 cad s/p stents: will dw dr Aguilar #3 htn #4 h/o cva #5 gout #6 acute renal failure ?vasomotor nephropathy: ivf advance care planning- full code-time spent 19 mins Plan discussed with: Patient, Spouse My Orders My Orders Orders - JANNA PALUMBO MD Procedure Category Date Status Time Ceftriaxone 1gm/50ml PHA 08/03/24 In Process D5w (Rocephin) 09:00 Metronidazole PHA 08/02/24 In Process 500mg/100ml (Flagyl 14:00 Full Liq Diet DIET 08/02/24 Transmitted Lunch Morphine Sulfate PHA 08/02/24 In Process Injection 13:15 Pantoprazole PHA 08/03/24 In Process (Protonix) 10:00 * Surgical Consult CONS 08/02/24 Transmitted Sodium Chloride 0.9% PHA 08/02/24 In Process 13:15 Blood Culture SENG 08/03/24 In Process 05:00 LIVER US 08/02/24 Resulted 13:30 Date of Service: Aug 03, 2024 Billing Provider: JANNA PALUMBO MD Common Visit Codes: [id number] INP/OBS CARE(HIGH) JANNA PALUMBO MD Aug 03, 2024 11:50
--- NOTE | 2024-08-03 12:42 | DVHINCON2 ---
DATE OF CONSULTATION: 08/03/2024 HISTORY OF PRESENT ILLNESS: The patient is an 83-year-old gentleman with history of myocardial infarction, coronary artery disease, transient ischemic attacks of gout, hypertension, hyperlipidemia, complaining of chest pain. The patient has complained of right sided chest pain accompanied by pain on inspiration. The patient has a cardiac history consistent with coronary artery disease, treated by a percutaneous coronary angiogram and angioplasty. The patient had a thrombectomy and stent placed in the right coronary artery and is on Plavix and Eliquis. The patient has an echocardiogram reported showing an ejection fraction of 55%. PAST SURGICAL HISTORY: He has had a hernia repair and right hand operation. The patient has a cardiovascular history of coronary artery disease, hypertension, myocardial infarction, and hyperlipidemia SOCIAL HISTORY: The patient is a nonsmoker, nondrinker, uses no drugs. REVIEW OF SYSTEMS: The patient has had some food intolerance and abdominal pain, postprandially. He has no known medicinal allergies. Otherwise, the review of systems with the exception of as listed above is without contributory information. PHYSICAL EXAMINATION: GENERAL: Reveals a well-developed, well-nourished male, in no acute distress. HEENT: Pupils are equal, round, react to light equally. Sclerae nonicteric. Extraocular motion is intact. Uvula midline. Trachea midline. Carotids are full without bruits. Jugular veins are collapsed. HEART: Regular rate and rhythm without murmur or gallop. ABDOMEN: Tender in the right upper quadrant. LABORATORY DATA: The patient's laboratory evaluation consisted of a CBC, which showed a leukocytosis slightly decreasing during this admission. Today's white count is 13.2 with left shift of neutrophils of 87.3. The patient's platelet count is normal at 195. His PT is 12, INR is 1.15, PTT is 36, the patient had a chemistry panel, which shows hyponatremia 130. The patient's BUN is elevated at 39. Creatinine is elevated at 1.9. The patient's glucose elevated at 119. Bilirubin was 1.2, normal today with normal liver enzymes. The patient's imaging consisted of chest x-ray, which showed no acute cardiopulmonary disease. A CT angiogram, which showed no evidence of pulmonary embolism, aneurysm or dissection with a small to moderate pericardial effusion. A liver ultrasound showed cholelithiasis without evidence of cholecystitis on the ultrasound and shows a right hepatic cyst. The patient has been treated with multiple medications including Rocephin and metronidazole. His Eliquis has been discontinued. ASSESSMENT AND PLAN: We will proceed with cholecystectomy. The patient has been cleared by partner manager for the procedure. MD ABHAY Munguia/MANJINDER TID: [id number] RECEIPT: [id number]
--- NOTE | 2024-08-03 12:53 | DVH ---
RENAL ULTRASOUND CLINICAL HISTORY: renal failure TECHNIQUE: Multiple ultrasound images of the kidneys and bladder were obtained. COMPARISON: [Comparison] FINDINGS: The right kidney measures 9.0 cm in length. The left kidney measures 11.3 cm. The kidneys demonstrate appropriate echotexture without evidence of a discrete renal lesion, nephrolithiasis or hydronephros is. Bladder is poorly filled limiting evaluation. The prevoid volume is 45 cc. IMPRESSION: 1. Unremarkable sonographic appearance of the kidneys. HS:Y
--- NOTE | 2024-08-03 14:14 | DVHPN2 ---
Progress Note - Dictate Date Seen: Aug 03, 2024 Medical Necessity Reason Pt with a Central, PICC or Fol: No Subjective PT WITH CHEST PAIN PLEURITIC HTN CAD RIGHT PARIETAL CVA GOUT HYPERTENSIVE HEART DISEASE vital signs Vital Sign Date Time Temp Pulse Resp B/P (MAP) Pulse Ox O2 Delivery O2 Flow Rate FiO2 08/03/24 13:00 98.0 74 16 95/64 (74) 95 98.0 08/02/24 20:00 Nasal Cannula* 3 32 Total Intake and Output 08/02/24 08/02/24 08/03/24 15:00 23:00 07:00 Intake Total 800 ml 600 ml Balance 800 ml 600 ml medications Current Medications Medications Dose Ordered Sig/Darrius Route Start Time Stop Time Status Last Admin Dose Admin Sodium Chloride 10 ml Q8HR IV 08/01/24 22:00 08/03/24 13:34 10 ML Acetaminophen/ Hydrocodone Bitart 1 tab Q4HP PRN PO 08/01/24 17:00 08/03/24 13:03 1 TAB Ondansetron HCl 4 mg Q4HP PRN IV 08/01/24 17:00 08/02/24 12:21 4 MG Docusate Sodium 100 mg BIDPRN PRN PO 08/01/24 17:00 08/03/24 11:04 100 MG Acetaminophen 650 mg Q6HP PRN PO 08/01/24 17:00 Nitroglycerin 0.4 mg Q5MINP PRN SL 08/01/24 17:00 Morphine Sulfate 2 mg Q30M PRN IV 08/01/24 17:00 Clopidogrel Bisulfate 75 mg 2XW PO 08/04/24 12:00 Latanoprost 1 drop QPM EACHEYE 08/01/24 18:00 08/02/24 17:48 1 DROP Metronidazole 100 ml @ 100 mls/hr Q8HR IV 08/02/24 14:00 08/03/24 13:34 100 MLS/HR Morphine Sulfate 1 mg Q4HP PRN IV 08/02/24 13:15 Pantoprazole Sodium 40 mg DAILY IV 08/03/24 10:00 08/03/24 09:13 40 MG Sodium Chloride 1,000 ml @ 75 mls/hr [id number] IV 08/02/24 13:15 08/03/24 04:24 75 MLS/HR Allopurinol 100 mg DAILY PO 08/04/24 10:00 Ampicillin Sodium/ Sulbactam Sodium 3 gm/Sodium Chloride 100 ml @ 100 mls/hr Q8HR IV 08/03/24 14:00 objective HEENT: Pupils are reactive. Funduscopic exam shows no AV nicking, no exudates, no papilledema is noted. Tympanic membranes are negative. Sinuses are nontender. Nasal passages are intact. Oral mucosa moist. Posterior pharynx without any exudates. NECK: No cervical adenopathy. No supraclavicular adenopathy. Carotid pulses are 2+ symmetrical, normal upstroke and contour. No JVD appreciated. No nuchal rigidity. Thyroid is within normal limits. PULMONARY: Clear to auscultation in all lung ko. Tympanic to percussion. Negative for rhonchi or wheezing. Negative for egophony. CARDIOVASCULAR: Regular rate. There is a soft 2/6 systolic murmur along the left sternal border. PMI is not displaced. ABDOMEN: Soft, nontender. Normal bowel sounds. No epigastric tenderness, no CVA tenderness. Liver approximately 5 cm by percussion. Spleen tip nonpalpable. However, the patient does have some mild suprapubic tenderness because of the right inguinal hernia. Stool guaiac is negative. EXTREMITIES: 2+ pulses, no edema noted. laboratory and microbiology Laboratory Tests 08/03/24 06:35 Test 08/03/24 06:35 Range/Units Serum Glucose 119 H 74-106 mg/dL Problem List CHEST PAIN PLEURITIC HTN CAD RIGHT PARIETAL CVA GOUT HYPERTENSIVE HEART DISEASE Assessment/Plan CTA CHEST TROPONIN NEGATIVE CT SHOWS CHOLELITHIASIS POSITIVE BOOD CX START ABX MAY PROCEED WITH SURGERY ASA II STRESS CARDIOLITE NEGATIVE FOR ISCHEMIA MAY PROCEED WITH CHOLECYSTECTOMY Plan discussed with: Patient RANDY VERMA MD Aug 03, 2024 14:14
[2024-08-03] MEDS: AMPICILLIN & SULBACTAM SODIUM 3 GM in SODIUM CHL 0.9% 100 ML IV SCH (15:21)
[2024-08-04] VITALS (25 sets, daily range): BP systolic 89–123; BP diastolic 54–75; PULSE 51–137; RESP 13–33; TEMP 98.7–99.3; O2SAT 91–96
--- NOTE | 2024-08-04 05:19 | DVH ---
EXAM: XR Chest, 1 View CLINICAL INDICATION: cad TECHNIQUE: Frontal view of the chest. COMPARISON: XY CHEST PORTABLE on DOS: 08/01/24, XY CHEST PORTABLE on DOS: 04/19/24 FINDINGS: LUNGS AND PLEURAL SPACES: See below. HEART: Cardiomegaly with mild congestion. MEDIASTINUM: Unremarkable. Normal mediastinal contour. BONES/JOINTS: Unremarkable. No acute fracture. OTHER FINDINGS: . None. . .. IMPRESSION: Cardiomegaly with mild congestion.
[2024-08-04 07:21] LABS: Basophils # (auto) 0 10 ^3/uL (0-0.2); Basophils % (auto) 0.2 % (0.0-2.0); Eosinophils # (auto) 0.1 10 ^3/uL (0-0.8); Eosinophils % (auto) 0.9 % (0.0-7.0); Hematocrit 28.9 % (41.0-53.0); Hemoglobin 10.2 g/dL (13.5-17.5); Lymphocytes # (auto) 0.5 10 ^3/uL (0.4-5.4); Lymphocytes % (auto) 4.6 % (10.0-50.0); Mean Corpuscular Hgb Conc. 35.4 g/dL (32.0-36.0); Monocytes # (auto) 0.9 10 ^3/uL (0-1.3); Monocytes % (auto) 9.6 % (0.0-12.0); Neutrophils # (auto) 8.4 10 ^3/uL (1.6-8.6); Neutrophils % (auto) 84.7 % (37.0-80.0); Platelet Count (auto) 200 10^3/uL (140-450); Red Blood Cells 3.01 10^6/uL (4.5-5.90); Red Cell Distribution Width 13.6 % (11.8-14.3); White Blood Cell 9.9 10^3/uL (4.4-10.8)
[2024-08-04 07:40] LABS: Alanine Aminotransferase 13 U/L (7-40); Albumin 3.6 g/dL (3.2-4.8); Alkaline Phosphatase 78 U/L (46-116); Anion Gap 8 (5-15); Aspartate Aminotransferase 22 U/L (13-40); Calcium 9.1 mg/dL (8.7-10.4); Carbon Dioxide 23 mmol/L (20-31); Chloride 102 mmol/L (98-107); Potassium 4.2 mmol/L (3.5-5.1)
[2024-08-04 07:42] LABS: BUN/Creatinine Ratio 25.7 (10.0-20.0); Blood Urea Nitrogen 43 mg/dL (9-23); Glucose 111 mg/dL (74-106); Sodium 133 mmol/L (136-145)
[2024-08-04 07:43] LABS: Bilirubin, Total 0.6 mg/dL (0.2-1.0); Total Protein 6.1 g/dL (5.7-8.2)
[2024-08-04] MEDS: ALLOPURINOL 100 MG TAB PO SCH (10:00)
--- NOTE | 2024-08-04 10:49 | DVHPN2 ---
Progress Note - Dictate Date Seen: Aug 04, 2024 Medical Necessity Reason Pt with a Central, PICC or Fol: No Subjective PT WITH CHEST PAIN PLEURITIC HTN CAD RIGHT PARIETAL CVA GOUT HYPERTENSIVE HEART DISEASE vital signs Vital Sign Date Time Temp Pulse Resp B/P (MAP) Pulse Ox O2 Delivery O2 Flow Rate FiO2 08/04/24 08:37 98.9 51 16 98/61 (73) 92 98.9 08/04/24 08:00 Nasal Cannula* 3 32 Total Intake and Output 08/03/24 08/03/24 08/04/24 15:00 23:00 07:00 Intake Total 100 ml 800 ml 100 ml Balance 100 ml 800 ml 100 ml medications Current Medications Medications Dose Ordered Sig/Darrius Route Start Time Stop Time Status Last Admin Dose Admin Sodium Chloride 10 ml Q8HR IV 08/01/24 22:00 08/04/24 06:11 10 ML Acetaminophen/ Hydrocodone Bitart 1 tab Q4HP PRN PO 08/01/24 17:00 08/03/24 21:34 1 TAB Ondansetron HCl 4 mg Q4HP PRN IV 08/01/24 17:00 08/04/24 06:26 4 MG Docusate Sodium 100 mg BIDPRN PRN PO 08/01/24 17:00 08/03/24 11:04 100 MG Acetaminophen 650 mg Q6HP PRN PO 08/01/24 17:00 Nitroglycerin 0.4 mg Q5MINP PRN SL 08/01/24 17:00 Morphine Sulfate 2 mg Q30M PRN IV 08/01/24 17:00 Clopidogrel Bisulfate 75 mg 2XW PO 08/04/24 12:00 Latanoprost 1 drop QPM EACHEYE 08/01/24 18:00 08/03/24 18:00 1 DROP Metronidazole 100 ml @ 100 mls/hr Q8HR IV 08/02/24 14:00 08/04/24 06:11 100 MLS/HR Morphine Sulfate 1 mg Q4HP PRN IV 08/02/24 13:15 Pantoprazole Sodium 40 mg DAILY IV 08/03/24 10:00 08/04/24 10:12 40 MG Sodium Chloride 1,000 ml @ 75 mls/hr [id number] IV 08/02/24 13:15 08/04/24 05:34 75 MLS/HR Allopurinol 100 mg DAILY PO 08/04/24 10:00 Ampicillin Sodium/ Sulbactam Sodium 3 gm/Sodium Chloride 100 ml @ 100 mls/hr Q8HR IV 08/03/24 14:00 08/04/24 06:11 100 MLS/HR objective HEENT: Pupils are reactive. Funduscopic exam shows no AV nicking, no exudates, no papilledema is noted. Tympanic membranes are negative. Sinuses are nontender. Nasal passages are intact. Oral mucosa moist. Posterior pharynx without any exudates. NECK: No cervical adenopathy. No supraclavicular adenopathy. Carotid pulses are 2+ symmetrical, normal upstroke and contour. No JVD appreciated. No nuchal rigidity. Thyroid is within normal limits. PULMONARY: Clear to auscultation in all lung ko. Tympanic to percussion. Negative for rhonchi or wheezing. Negative for egophony. CARDIOVASCULAR: Regular rate. There is a soft 2/6 systolic murmur along the left sternal border. PMI is not displaced. ABDOMEN: Soft, nontender. Normal bowel sounds. No epigastric tenderness, no CVA tenderness. Liver approximately 5 cm by percussion. Spleen tip nonpalpable. However, the patient does have some mild suprapubic tenderness because of the right inguinal hernia. Stool guaiac is negative. EXTREMITIES: 2+ pulses, no edema noted. laboratory and microbiology Laboratory Tests 08/04/24 07:00 Test 08/04/24 07:00 Range/Units Serum Glucose 111 H 74-106 mg/dL Problem List CHEST PAIN PLEURITIC HTN CAD RIGHT PARIETAL CVA GOUT HYPERTENSIVE HEART DISEASE Assessment/Plan CTA CHEST TROPONIN NEGATIVE CT SHOWS CHOLELITHIASIS POSITIVE BOOD CX START ABX MAY PROCEED WITH SURGERY ASA II STRESS CARDIOLITE NEGATIVE FOR ISCHEMIA MAY PROCEED WITH CHOLECYSTECTOMY Plan discussed with: Patient Critical Care Time(min): 35 RANDY VERMA MD Aug 04, 2024 10:49
[2024-08-04] MEDS ORDERED: DexAMETHasone SOD PHOS 10MG/1ML VIAL INJ IV ONE (10:52)
[2024-08-04] MEDS ORDERED: HYDROmorphone HCL 2 MG/ML VL/or syr ONE (11:02)
[2024-08-04] MEDS ORDERED: fentaNYL CITRATE 100 MCG/2 ML VL ONE (11:02)
[2024-08-04] MEDS ORDERED: GLYCOPYRROLATE 0.2 MG/ML 1ML VIAL ONE (11:06)
[2024-08-04] MEDS ORDERED: PHENYLEPHRINE HCL 10 MG/ML VL ONE (11:06)
[2024-08-04] MEDS ORDERED: ONDANSETRON HCL 4 MG/2 ML VIAL ONE (11:06)
[2024-08-04] MEDS ORDERED: LIDOCAINE 2% (LOCAL ANESTH.) PF 5ml SDV ONE (11:06)
[2024-08-04] MEDS ORDERED: ETOMIDATE (2MG/ML) 20ML VIAL IV ONE (11:06)
[2024-08-04] MEDS ORDERED: ePHEDrine SULFATE 50 MG/ML AMP ONE (11:06)
[2024-08-04] MEDS ORDERED: SUGAMMADEX 200mg/2ml Vial (100MG/ML) IV ONE (11:45)
[2024-08-04] MEDS ORDERED: ceFAZolin 1GM VL ONE (11:45)
[2024-08-04] MEDS: BUPIVACAINE 0.5% P/F INJ 10 ML VIAL ONE (11:49)
[2024-08-04] MEDS: LIDOCAINE W/ EPINEPHRINE 1% 20ML VIAL ONE (11:49)
[2024-08-04] MEDS ORDERED: CLOPIDOGREL BISULFATE 75 MG TAB PO SCH (12:00)
[2024-08-04] MEDS ORDERED: HYDROmorphone HCL 2 MG/ML VL/or syr IV PRN (12:15)
[2024-08-04] MEDS ORDERED: D5W/SOD CHL 0.45%/KCL 20MEQ 1,000 ML IV SCH (12:30)
[2024-08-04] MEDS: DIGOXIN (250MCG/ML) 2 ML AMPULE IV ONE ×2 (13:15→13:45)
--- NOTE | 2024-08-04 13:50 | ECG ---
[facility] Test Date: 2024-08-04 Test Time: 12:12:36 Pat Name: CASTILLO GRAVES Department: Room: [address] [place] [address] Gender: M Jewel Inspector: MARI : 1940 Requested By: CHRISTIAN SMITH Order Number: [id number] Reading MD: Castillo Carlos Measurements Intervals [place] Rate: 138 P: 0 MT: 0 QRS: -5 QRSD: 138 T: 13 QT: 340 QTc: 515 Interpretive Statements Wide QRS tachycardia with fusion complexes Right bundle branch block Electronically Signed On 08-04-2024 15:45:48 PST by Castillo Carlos Please click the below link to view image of tracing.
--- NOTE | 2024-08-04 15:01 | DVHOP ---
DATE OF SURGERY: 08/04/2024 PREOPERATIVE DIAGNOSES: Cholelithiasis, cholecystitis. POSTOPERATIVE DIAGNOSES: Cholelithiasis, cholecystitis. SURGEON: Scotty Tamayo MD PERIODONTIST: Amando Messina. ANESTHESIA: General endotracheal. ANESTHESIOLOGIST: Dr. Baker. PROCEDURES: Laparoscopy, laparoscopic cholecystectomy. DESCRIPTION OF PROCEDURE: Under general endotracheal anesthesia with the patient's skin prepped and draped, supraumbilical incision was made and Veress needle utilized to establish pneumoperitoneum to 15 mmHg pressure by insufflation with carbon dioxide. The patient's abdomen being fully distended. The needle was removed and replaced with a 5 mm trocar port through which a 0-degree viewing laparoscope was inserted and under direct vision, 5 and 10 mm ports inserted through the abdominal wall at the anterior axillary line right from the level of the umbilicus and through the subxiphoid midline skin. Instrumentation was then introduced into the peritoneal cavity and laparoscopy was performed revealing no obvious unexpected pathology. The gallbladder was affected by chronic cholecystitis, was placed on tension and dissected from omental adhesions. The cystic duct and cystic artery were then identified, traced into the hepaticocystic triangle so as to minimize the potential for inadvertent injury to the common bile duct. The cystic duct and cystic artery were circumferentially skeletonized and then divided between metallic clips and then the gallbladder was resected from its liver bed by electrocautery and traction. The fully mobilized gallbladder was retrieved from the peritoneal cavity by placement in a specimen extraction bag, which was removed through the subxiphoid 10 mm port site. Right upper quadrant was then thoroughly irrigated, irrigant was aspirated. Hemostasis was meticulously inspected. There was no evidence of bleeding at the termination of the procedure either from the liver bed or from the port sites. Due to the patient's preoperative anticoagulation, small amount of hemostatic SNoW was placed underneath the right lobe of the liver into the gallbladder fossa and a 10 mm Jacky-Schmid drain was placed underneath the right lobe of the liver and exteriorized through the 5 mm trocar port site on the right flank secured with a 2-0 nylon suture. Following further irrigation and assurance of complete hemostasis, the instrumentation was withdrawn. Pneumoperitoneum was evacuated. Fascial defect closed using 0 Vicryl. Wounds were approximated using Monocryl sutures, Dermabond glue and Steri-Strips. The patient remained stable throughout the procedure, left the operating room following an accurate needle and sponge count. His family was thoroughly informed in the waiting room. MD ABHAY Munguia/NEVA TID: [id number] RECEIPT: [id number]
--- NOTE | 2024-08-04 16:21 | DVHPN2 ---
Progress Note Date Seen: Aug 04, 2024 Medical Necessity Reason Pt with a Central, PICC or Fol: No Subjective Patient reports: No new complaints Review of Systems: HEENT:Normal, CVS:Normal, RESPIRATORY:Normal, GI:Normal, :Normal, MSK:Normal, NEURO:Normal Objective vital signs Vital Sign Date Time Temp Pulse Resp B/P (MAP) Pulse Ox O2 Delivery O2 Flow Rate FiO2 08/04/24 13:30 89 18 107/70 (82) 92 08/04/24 12:05 99.2 99.2 08/04/24 12:01 Mask 6.0 08/04/24 12:01 94 Total Intake and Output 08/03/24 08/03/24 08/04/24 15:00 23:00 07:00 Intake Total 100 ml 800 ml 100 ml Balance 100 ml 800 ml 100 ml medications Current Medications Medications Dose Ordered Sig/Darrius Route Start Time Stop Time Status Last Admin Dose Admin Sodium Chloride 10 ml Q8HR IV 08/01/24 22:00 08/04/24 14:00 10 ML Acetaminophen/ Hydrocodone Bitart 1 tab Q4HP PRN PO 08/01/24 17:00 08/03/24 21:34 1 TAB Ondansetron HCl 4 mg Q4HP PRN IV 08/01/24 17:00 08/04/24 06:26 4 MG Docusate Sodium 100 mg BIDPRN PRN PO 08/01/24 17:00 08/03/24 11:04 100 MG Acetaminophen 650 mg Q6HP PRN PO 08/01/24 17:00 Nitroglycerin 0.4 mg Q5MINP PRN SL 08/01/24 17:00 Morphine Sulfate 2 mg Q30M PRN IV 08/01/24 17:00 Clopidogrel Bisulfate 75 mg 2XW PO 08/04/24 12:00 Latanoprost 1 drop QPM EACHEYE 08/01/24 18:00 08/03/24 18:00 1 DROP Metronidazole 100 ml @ 100 mls/hr Q8HR IV 08/02/24 14:00 08/04/24 15:15 100 MLS/HR Morphine Sulfate 1 mg Q4HP PRN IV 08/02/24 13:15 Pantoprazole Sodium 40 mg DAILY IV 08/03/24 10:00 08/04/24 10:12 40 MG Sodium Chloride 1,000 ml @ 75 mls/hr [id number] IV 08/02/24 13:15 08/04/24 05:34 75 MLS/HR Allopurinol 100 mg DAILY PO 08/04/24 10:00 Ampicillin Sodium/ Sulbactam Sodium 3 gm/Sodium Chloride 100 ml @ 100 mls/hr Q8HR IV 08/03/24 14:00 08/04/24 06:11 100 MLS/HR Examination: GENERAL:Normal, HEENT:Normal, NECK:Normal, LUNGS:Normal, CVS:Normal, ABDOMEN:Normal, ABDOMEN:Abnormal (KELECHI DRAIN), MSK:Normal, SKIN:Normal, NEURO:Normal, :Normal laboratory and microbiology Laboratory Tests 08/04/24 07:00 Test 08/04/24 07:00 Range/Units Serum Glucose 111 H 74-106 mg/dL Microbiology Date/Time Source Procedure Growth Status 08/03/24 06:35 Blood Blood Culture - Preliminary NO GROWTH AFTER 24 HOURS OF INCUBATION. Resulted Problem List/Assessment/Plan Problem List/Assessment/Plan #1 sepsis with gallstones: iv antibiotics, ivf, s/p surg #2 cad s/p stents: hold plavix for now dr Tamayo due to bleeding #3 htn #4 h/o cva #5 gout #6 acute renal failure ?vasomotor nephropathy: ivf #7 chronic diastolic heart failure advance care planning- full code-time spent 19 mins Plan discussed with: Patient My Orders My Orders Orders - JANNA PALUMBO MD Procedure Category Date Status Time Initiate Vte DARIUS 08/04/24 In Process Prophylaxis 08:31 NS PHA 08/04/24 Verified 16:30 Complete Blood Count LAB 08/05/24 Verified 06:00 Comprehensive LAB 08/05/24 Verified Metabolic Panel 06:00 Chest Portable XY 08/05/24 Verified 06:00 Pt Request For Service PT 08/04/24 Verified 16:17 Date of Service: Aug 04, 2024 Billing Provider: JANNA PALUMBO MD Common Visit Codes: [id number] INP/OBS CARE(HIGH) Secondary Visit Codes: [id number] CARE PLAN 30 MINUTES JANNA PALUMBO MD Aug 04, 2024 16:21
[2024-08-04] MEDS: SODIUM CHLORIDE 0.9% 1,000 ML IV SCH (16:30)
[2024-08-04] MEDS ORDERED: AMPICILLIN & SULBACTAM SODIUM 3 GM in SODIUM CHL 0.9% 100 ML IV SCH (18:15)
[2024-08-05] VITALS (60 sets, daily range): BP systolic 95–129; BP diastolic 51–78; PULSE 61–94; RESP 11–31; TEMP 97.6–99.1; O2SAT 89–100
[2024-08-05] MEDS: AMPICILLIN & SULBACTAM SODIUM 3 GM in SODIUM CHL 0.9% 100 ML IV SCH (01:54)
[2024-08-05 05:16] LABS: Basophils # (auto) 0 10 ^3/uL (0-0.2); Basophils % (auto) 0.1 % (0.0-2.0); Eosinophils # (auto) 0 10 ^3/uL (0-0.8); Hematocrit 28.2 % (41.0-53.0); Hemoglobin 9.6 g/dL (13.5-17.5); Lymphocytes # (auto) 0.3 10 ^3/uL (0.4-5.4); Lymphocytes % (auto) 3.7 % (10.0-50.0); Mean Corpuscular Hemoglobin 32.5 pg (28.0-32.0); Mean Corpuscular Hgb Conc. 33.8 g/dL (32.0-36.0); Mean Corpuscular Volume 96.1 fL (80.0-100.0); Monocytes # (auto) 0.7 10 ^3/uL (0-1.3); Monocytes % (auto) 7.5 % (0.0-12.0); Neutrophils # (auto) 8.3 10 ^3/uL (1.6-8.6); Neutrophils % (auto) 88.7 % (37.0-80.0); Platelet Count (auto) 214 10^3/uL (140-450); Red Blood Cells 2.94 10^6/uL (4.5-5.90); Red Cell Distribution Width 13.8 % (11.8-14.3); White Blood Cell 9.3 10^3/uL (4.4-10.8)
[2024-08-05 05:32] LABS: Alanine Aminotransferase 14 U/L (7-40); Albumin 3.3 g/dL (3.2-4.8); Alkaline Phosphatase 84 U/L (46-116); Anion Gap 7 (5-15); Aspartate Aminotransferase 29 U/L (13-40); BUN/Creatinine Ratio 22.5 (10.0-20.0); Bilirubin, Total 0.6 mg/dL (0.2-1.0); Carbon Dioxide 23 mmol/L (20-31); Chloride 106 mmol/L (98-107); Potassium 4.3 mmol/L (3.5-5.1); Sodium 136 mmol/L (136-145)
[2024-08-05 05:33] LABS: Blood Urea Nitrogen 27 mg/dL (9-23); Glucose 138 mg/dL (74-106); Total Protein 5.7 g/dL (5.7-8.2)
--- NOTE | 2024-08-05 06:20 | DVH ---
EXAM: XR Chest, 1 View CLINICAL INDICATION: CHF TECHNIQUE: Frontal view of the chest. COMPARISON: XY CHEST PORTABLE on DOS: 08/04/24, XY CHEST PORTABLE on DOS: 08/01/24, XY CHEST PORTABLE on DOS: 04/19/24 FINDINGS: LUNGS AND PLEURAL SPACES: Left basilar atelectasis or pneumonia. HEART: Cardiomegaly with mild congestion. MEDIASTINUM: Unremarkable. Normal mediastinal contour. BONES/JOINTS: Unremarkable. No acute fracture. OTHER FINDINGS: . None. . .. IMPRESSION: 1. Left basilar atelectasis or pneumonia. 2. Cardiomegaly with mild congestion.
--- NOTE | 2024-08-05 11:17 | ECG ---
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
--- NOTE | 2024-08-05 12:21 | DVHPN2 ---
Progress Note Date Seen: Aug 05, 2024 Has the PT tested + for MRSA If YES, has PT been informed?: No Medical Necessity Reason Pt with a Central, PICC or Fol: No Subjective Patient reports: No new complaints, Feels better Review of Systems: HEENT:Normal, CVS:Normal, RESPIRATORY:Normal, GI:Normal, :Normal, MSK:Normal, NEURO:Normal Objective vital signs Vital Sign Date Time Temp Pulse Resp B/P (MAP) Pulse Ox O2 Delivery O2 Flow Rate FiO2 08/05/24 10:20 95 Nasal Cannula* 4 36 08/05/24 10:20 68 20 104/56 08/05/24 08:00 98.8 98.8 Total Intake and Output 08/04/24 08/04/24 08/05/24 15:00 23:00 07:00 Intake Total 200 ml 625 ml 720 ml Output Total 300 ml 1355 ml Balance 200 ml 325 ml -635 ml medications Current Medications Medications Dose Ordered Sig/Darrius Route Start Time Stop Time Status Last Admin Dose Admin Sodium Chloride 10 ml Q8HR IV 08/01/24 22:00 08/05/24 05:51 10 ML Acetaminophen/ Hydrocodone Bitart 1 tab Q4HP PRN PO 08/01/24 17:00 08/03/24 21:34 1 TAB Ondansetron HCl 4 mg Q4HP PRN IV 08/01/24 17:00 08/04/24 06:26 4 MG Docusate Sodium 100 mg BIDPRN PRN PO 08/01/24 17:00 08/03/24 11:04 100 MG Acetaminophen 650 mg Q6HP PRN PO 08/01/24 17:00 Nitroglycerin 0.4 mg Q5MINP PRN SL 08/01/24 17:00 Morphine Sulfate 2 mg Q30M PRN IV 08/01/24 17:00 Latanoprost 1 drop QPM EACHEYE 08/01/24 18:00 08/04/24 19:23 1 DROP Metronidazole 100 ml @ 100 mls/hr Q8HR IV 08/02/24 14:00 08/05/24 05:49 100 MLS/HR Morphine Sulfate 1 mg Q4HP PRN IV 08/02/24 13:15 Pantoprazole Sodium 40 mg DAILY IV 08/03/24 10:00 2/14/25 09:19 40 MG Allopurinol 100 mg DAILY PO 08/04/24 10:00 08/05/24 09:19 100 MG Sodium Chloride 1,000 ml @ 50 mls/hr Q20H IV 08/04/24 16:30 08/04/24 16:30 50 MLS/HR Ampicillin Sodium/ Sulbactam Sodium 3 gm/Sodium Chloride 100 ml @ 100 mls/hr Q8H IV 08/05/24 02:00 08/05/24 09:21 100 MLS/HR Albuterol 2.5 mg Q6HPRN PRN NEB 08/05/24 10:15 Examination: GENERAL:Normal, HEENT:Normal, NECK:Normal, LUNGS:Normal, CVS:Normal, ABDOMEN:Abnormal (KELECHI drain) laboratory and microbiology Laboratory Tests 08/05/24 04:35 Test 08/05/24 04:35 Range/Units Serum Glucose 138 H 74-106 mg/dL Problem List/Assessment/Plan Problem List/Assessment/Plan 08/05/24 - abdomen soft, non distended, appropriately tender, no complaint of pain, denies nausea or vomiting, passing gas wounds clean dry and intact, KELECHI drain serous sanguinous fluid full liquid diet Plan discussed with: Patient KRYSTLE ALEXANDRA NP Aug 05, 2024 12:21
[2024-08-05] MEDS: MORPHINE SULFATE INJ 2 MG/ml SYRG IV PRN (13:06)
--- NOTE | 2024-08-05 14:09 | DVHPN2 ---
Progress Note - Dictate Date Seen: Aug 05, 2024 Has the PT tested + for MRSA If YES, has PT been informed?: No Medical Necessity Reason Pt with a Central, PICC or Fol: No Subjective PT WITH CHEST PAIN PLEURITIC HTN CAD RIGHT PARIETAL CVA GOUT HYPERTENSIVE HEART DISEASE vital signs Vital Sign Date Time Temp Pulse Resp B/P (MAP) Pulse Ox O2 Delivery O2 Flow Rate FiO2 08/05/24 13:06 70 22 119/73 08/05/24 12:00 98.7 97 98.7 08/05/24 10:20 Nasal Cannula* 4 36 Total Intake and Output 08/04/24 08/04/24 08/05/24 15:00 23:00 07:00 Intake Total 200 ml 625 ml 720 ml Output Total 300 ml 1355 ml Balance 200 ml 325 ml -635 ml medications Current Medications Medications Dose Ordered Sig/Darrius Route Start Time Stop Time Status Last Admin Dose Admin Sodium Chloride 10 ml Q8HR IV 08/01/24 22:00 08/05/24 13:10 10 ML Acetaminophen/ Hydrocodone Bitart 1 tab Q4HP PRN PO 08/01/24 17:00 08/03/24 21:34 1 TAB Ondansetron HCl 4 mg Q4HP PRN IV 08/01/24 17:00 08/04/24 06:26 4 MG Docusate Sodium 100 mg BIDPRN PRN PO 08/01/24 17:00 08/05/24 13:06 100 MG Acetaminophen 650 mg Q6HP PRN PO 08/01/24 17:00 Nitroglycerin 0.4 mg Q5MINP PRN SL 08/01/24 17:00 Morphine Sulfate 2 mg Q30M PRN IV 08/01/24 17:00 Latanoprost 1 drop QPM EACHEYE 08/01/24 18:00 08/04/24 19:23 1 DROP Metronidazole 100 ml @ 100 mls/hr Q8HR IV 08/02/24 14:00 08/05/24 13:09 100 MLS/HR Morphine Sulfate 1 mg Q4HP PRN IV 08/02/24 13:15 08/05/24 13:06 1 MG Pantoprazole Sodium 40 mg DAILY IV 08/03/24 10:00 08/05/24 09:19 40 MG Allopurinol 100 mg DAILY PO 08/04/24 10:00 08/05/24 09:19 100 MG Sodium Chloride 1,000 ml @ 50 mls/hr Q20H IV 08/04/24 16:30 08/04/24 16:30 50 MLS/HR Ampicillin Sodium/ Sulbactam Sodium 3 gm/Sodium Chloride 100 ml @ 100 mls/hr Q8H IV 08/05/24 02:00 08/05/24 09:21 100 MLS/HR Albuterol 2.5 mg Q6HPRN PRN NEB 08/05/24 10:15 objective HEENT: Pupils are reactive. Funduscopic exam shows no AV nicking, no exudates, no papilledema is noted. Tympanic membranes are negative. Sinuses are nontender. Nasal passages are intact. Oral mucosa moist. Posterior pharynx without any exudates. NECK: No cervical adenopathy. No supraclavicular adenopathy. Carotid pulses are 2+ symmetrical, normal upstroke and contour. No JVD appreciated. No nuchal rigidity. Thyroid is within normal limits. PULMONARY: Clear to auscultation in all lung ko. Tympanic to percussion. Negative for rhonchi or wheezing. Negative for egophony. CARDIOVASCULAR: Regular rate. There is a soft 2/6 systolic murmur along the left sternal border. PMI is not displaced. ABDOMEN: Soft, nontender. Normal bowel sounds. No epigastric tenderness, no CVA tenderness. Liver approximately 5 cm by percussion. Spleen tip nonpalpable. However, the patient does have some mild suprapubic tenderness because of the right inguinal hernia. Stool guaiac is negative. EXTREMITIES: 2+ pulses, no edema noted. laboratory and microbiology Laboratory Tests 08/05/24 04:35 Test 08/05/24 04:35 Range/Units Serum Glucose 138 H 74-106 mg/dL Problem List CHEST PAIN PLEURITIC HTN CAD RIGHT PARIETAL CVA GOUT HYPERTENSIVE HEART DISEASE Assessment/Plan CTA CHEST TROPONIN NEGATIVE CT SHOWS CHOLELITHIASIS POSITIVE BOOD CX START ABX MAY PROCEED WITH SURGERY ASA II STRESS CARDIOLITE NEGATIVE FOR ISCHEMIA MAY PROCEED WITH CHOLECYSTECTOMY S/P CHOLECYSTECTOMY POD #1 RESTART PLAVIX Monitor Morphine Sulfate 2mg, IV. Plan discussed with: Patient RANDY VERMA MD Aug 05, 2024 14:09
[2024-08-05] MEDS: CLOPIDOGREL BISULFATE 75 MG TAB PO ONE (15:36)
[2024-08-05] MEDS: ALBUTEROL SULF 2.5 MG/0.5ML(0.5%) NEB SOLN NEB PRN (20:34)
[2024-08-06] VITALS (34 sets, daily range): BP systolic 104–140; BP diastolic 55–71; PULSE 53–108; RESP 13–30; TEMP 98–100.2; O2SAT 93–98
--- NOTE | 2024-08-06 09:26 | DVHPN2 ---
Progress Note - Surgical Date Seen: Aug 06, 2024 Post op day Post op day: 2 Subjective Patient reports: No new complaints, Feels better Review of Systems: HEENT:Normal, CVS:Normal, RESPIRATORY:Normal, GI:Normal, :Normal, MSK:Normal, NEURO:Normal Objective Vital signs Vital Sign Date Time Temp Pulse Resp B/P (MAP) Pulse Ox O2 Delivery O2 Flow Rate FiO2 08/06/24 08:00 58 20 96 Nasal Cannula* 4 36 08/06/24 08:00 98.0 120/65 (83) 98.0 Total Intake and Output 08/05/24 08/05/24 08/06/24 15:00 23:00 07:00 Intake Total 600 ml 1700 ml 1500 ml Output Total 415 ml 600 ml Balance 600 ml 1285 ml 900 ml Medications Current Medications Medications Dose Ordered Sig/Darrius Route Start Time Stop Time Status Last Admin Dose Admin Sodium Chloride 10 ml Q8HR IV 08/01/24 22:00 08/06/24 05:41 10 ML Acetaminophen/ Hydrocodone Bitart 1 tab Q4HP PRN PO 08/01/24 17:00 08/03/24 21:34 1 TAB Ondansetron HCl 4 mg Q4HP PRN IV 08/01/24 17:00 08/04/24 06:26 4 MG Docusate Sodium 100 mg BIDPRN PRN PO 08/01/24 17:00 08/05/24 13:06 100 MG Acetaminophen 650 mg Q6HP PRN PO 08/01/24 17:00 Nitroglycerin 0.4 mg Q5MINP PRN SL 08/01/24 17:00 Morphine Sulfate 2 mg Q30M PRN IV 08/01/24 17:00 Latanoprost 1 drop QPM EACHEYE 08/01/24 18:00 08/05/24 18:00 1 DROP Metronidazole 100 ml @ 100 mls/hr Q8HR IV 08/02/24 14:00 08/06/24 05:40 100 MLS/HR Morphine Sulfate 1 mg Q4HP PRN IV 08/02/24 13:15 08/05/24 23:45 1 MG Pantoprazole Sodium 40 mg DAILY IV 08/03/24 10:00 08/05/24 09:19 40 MG Allopurinol 100 mg DAILY PO 08/04/24 10:00 08/05/24 09:19 100 MG Sodium Chloride 1,000 ml @ 50 mls/hr Q20H IV 08/04/24 16:30 08/04/24 16:30 50 MLS/HR Ampicillin Sodium/ Sulbactam Sodium 3 gm/Sodium Chloride 100 ml @ 100 mls/hr Q8H IV 08/05/24 02:00 08/06/24 01:51 100 MLS/HR Albuterol 2.5 mg Q6HPRN PRN NEB 08/05/24 10:15 Clopidogrel Bisulfate 75 mg DAILY PO 08/06/24 10:00 Laboratory Laboratory Tests 08/05/24 04:35 Test 08/05/24 04:35 Range/Units Serum Glucose 138 H 74-106 mg/dL Microbiology Date/Time Source Procedure Growth Status 08/04/24 16:25 Nose MRSA Screen - Final Complete 08/03/24 06:35 Blood Blood Culture - Preliminary NO GROWTH AFTER 72 HOURS OF INCUBATION. Resulted Examination: GENERAL:Normal, HEENT:Normal, NECK:Normal, LUNGS:Normal, CVS:Normal, ABDOMEN:Abnormal (KELECHI drain), MSK:Normal, SKIN:Normal, NEURO:Normal Problem List/Assessment/Plan Problems: (1) Status post laparoscopic cholecystectomy (2) HTN (hypertension) Assessment and Plan no new complaints abdomen soft, non distended, appropriately tender KELECHI drain Serous fluid wounds clean dry and intact labs and notes reviewed Plan continue IV antibiotics full liquid diet patient to ambulate ok to downgrade to telemetry Dr. Tamayo agrees with plan Plan discussed with Plan discussed with: Patient, Other (Dr. Tamayo) Visit Coding Surgery Date of Service if different f: Aug 06, 2024 Billing Provider: JOSIAH TAMAYO MD Surgery Visit Codes: [id number] INP/OBS CARE(HIGH) KRYSTLE ALEXANDRA HELPER SHEAR OPERATOR Aug 06, 2024 09:26
[2024-08-06] MEDS: CLOPIDOGREL BISULFATE 75 MG TAB PO SCH (09:39)
[2024-08-06] MEDS ORDERED: CLOPIDOGREL BISULFATE 75 MG TAB PO SCH (10:00)
--- NOTE | 2024-08-06 18:51 | DVHPN2 ---
Reviewed: Care Plan, Labs, Medications, Previous Orders, Radiology Changes from previous H/P or p: No Changes General: Per HPI Eyes: No Pain, No Vision change, No Conjunctivae inflammation, No Eyelid inflammation, No Other, No Redness ENT: No Ear pain, No Ear discharge, No Nose pain, No Nose discharge, No Nose congestion, No Mouth pain, No Mouth swelling, No Throat pain, No Throat swelling, No Other Cardiovascular: Chest Pain, Palpitations; No Orthopnea, No Paroxysmal Noc. Dyspnea, No Edema, No Lt Headedness, No Other Respiratory: No Cough, No Dry; Shortness of breath, SOB with excertion; No Wheezing, No Hemoptysis; Pleuritic Pain; No Sputum, No Other Gastrointestinal: No Nausea, No Vomiting, No Abdominal Pain, No Diarrhea, No Constipation, No Melena, No Hematochezia, No Other Genitourinary: No Dysuria, No Frequency, No Incontinence, No Hematuria, No Retention, No Other Musculoskeletal: No other, No neck pain, No shoulder pain, No arm pain, No back pain, No hand pain, No leg pain, No foot pain Skin: No Rash, No Lesions, No Jaundice, No Bruising, No Other Objective Vitals Vital Signs Date Time Temp Pulse Resp B/P (MAP) Pulse Ox O2 Delivery O2 Flow Rate FiO2 08/06/24 18:00 68 08/06/24 18:00 19 119/68 (85) 96 08/06/24 16:00 98.8 98.8 08/06/24 08:00 Nasal Cannula* 4 36 Intake/Output Intake and Output 08/06/24 07:00 Intake Total 3800 ml Output Total 1015 ml Balance 2785 ml Intake Oral 1400 ml IV Total 2400 ml Output Urine Total 975 ml Drainage Total 40 ml # Voids 1 Medications Current Medications Medications Dose Ordered Sig/Darrius Route Start Time Stop Time Status Last Admin Dose Admin Sodium Chloride 10 ml Q8HR IV 08/01/24 22:00 08/06/24 13:41 10 ML Acetaminophen/ Hydrocodone Bitart 1 tab Q4HP PRN PO 08/01/24 17:00 08/03/24 21:34 1 TAB Ondansetron HCl 4 mg Q4HP PRN IV 08/01/24 17:00 08/04/24 06:26 4 MG Docusate Sodium 100 mg BIDPRN PRN PO 08/01/24 17:00 08/05/24 13:06 100 MG Acetaminophen 650 mg Q6HP PRN PO 08/01/24 17:00 Nitroglycerin 0.4 mg Q5MINP PRN SL 08/01/24 17:00 Morphine Sulfate 2 mg Q30M PRN IV 08/01/24 17:00 Latanoprost 1 drop QPM EACHEYE 08/01/24 18:00 08/06/24 17:40 1 DROP Metronidazole 100 ml @ 100 mls/hr Q8HR IV 08/02/24 14:00 08/06/24 13:40 100 MLS/HR Morphine Sulfate 1 mg Q4HP PRN IV 08/02/24 13:15 08/05/24 23:45 1 MG Pantoprazole Sodium 40 mg DAILY IV 08/03/24 10:00 08/06/24 09:39 40 MG Allopurinol 100 mg DAILY PO 08/04/24 10:00 08/06/24 09:39 100 MG Sodium Chloride 1,000 ml @ 50 mls/hr Q20H IV 08/04/24 16:30 08/06/24 09:32 50 MLS/HR Ampicillin Sodium/ Sulbactam Sodium 3 gm/Sodium Chloride 100 ml @ 100 mls/hr Q8H IV 08/05/24 02:00 08/06/24 17:40 100 MLS/HR Albuterol 2.5 mg Q6HPRN PRN NEB 08/05/24 10:15 Clopidogrel Bisulfate 75 mg DAILY PO 08/06/24 10:00 08/06/24 09:39 75 MG Laboratory Results Laboratory Tests 08/05/24 04:35 Urinalysis Test 08/02/24 10:23 Urine Color Light-orange (Yellow) Urine Clarity Clear (Clear) Urine pH 6.0 (5.0-9.0) Urine Specific [place] > 1.050 (1.001-1.035) Urine Protein 1+ (Negative) H Urine Ketones Negative (Negative) Urine Blood Negative /uL (Negative) Urine Nitrite Negative (Negative) Urine Bilirubin Negative (Negative) Urine Urobilinogen Normal mg/dL (Negative) Urine Leukocyte Esterase Negative /uL (Negative) Urine RBC 5 /hpf (0 - 3) Urine Microscopic WBC < 1 /HPF (0-3) Urine Squamous Epithelial Cells Few /hpf (<5) Urine Bacteria None seen /hpf (None Seen) Urine Glucose Normal mg/dL (Normal) Microbiology Microbiology Date/Time Source Procedure Growth Status 08/04/24 16:25 Nose MRSA Screen - Final Complete 08/03/24 06:35 Blood Blood Culture - Preliminary NO GROWTH AFTER 72 HOURS OF INCUBATION. Resulted Assessment/Plan Assessment/Plan #1 sepsis with gallstones: iv antibiotics, ivf, s/p surg #2 cad s/p stents: hold plavix for now dr Tamayo due to bleeding #3 htn #4 h/o cva #5 gout #6 acute renal failure ?vasomotor nephropathy: ivf #7 chronic diastolic heart failure advance care planning- full code-time spent 19 mins s/p surgery, pending evaluation by [facility] Plan discussed with: Patient Date of Service: Aug 05, 2024 Billing Provider: NATALIIA EDUARDO DO Common Visit Codes: [id number] INP/OBS CARE(HIGH) NATALIIA EDUARDO DO Aug 06, 2024 18:51
--- NOTE | 2024-08-06 18:54 | DVHPN2 ---
Reviewed: Care Plan, H&P, Labs, Medications, Previous Orders, Radiology Changes from previous H/P or p: No Changes General: Per HPI Eyes: No Pain, No Vision change, No Conjunctivae inflammation, No Eyelid inflammation, No Other, No Redness ENT: No Ear pain, No Ear discharge, No Nose pain, No Nose discharge, No Nose congestion, No Mouth pain, No Mouth swelling, No Throat pain, No Throat swelling, No Other Cardiovascular: Chest Pain, Palpitations; No Orthopnea, No Paroxysmal Noc. Dyspnea, No Edema, No Lt Headedness, No Other Respiratory: No Cough, No Dry; Shortness of breath, SOB with excertion; No Wheezing, No Hemoptysis; Pleuritic Pain; No Sputum, No Other Gastrointestinal: No Nausea, No Vomiting, No Abdominal Pain, No Diarrhea, No Constipation, No Melena, No Hematochezia, No Other Genitourinary: No Dysuria, No Frequency, No Incontinence, No Hematuria, No Retention, No Other Musculoskeletal: No other, No neck pain, No shoulder pain, No arm pain, No back pain, No hand pain, No leg pain, No foot pain Skin: No Rash, No Lesions, No Jaundice, No Bruising, No Other Objective Vitals Vital Signs Date Time Temp Pulse Resp B/P (MAP) Pulse Ox O2 Delivery O2 Flow Rate FiO2 08/06/24 18:00 68 08/06/24 18:00 19 119/68 (85) 96 08/06/24 16:00 98.8 98.8 08/06/24 08:00 Nasal Cannula* 4 36 Intake/Output Intake and Output 08/06/24 07:00 Intake Total 3800 ml Output Total 1015 ml Balance 2785 ml Intake Oral 1400 ml IV Total 2400 ml Output Urine Total 975 ml Drainage Total 40 ml # Voids 1 Medications Current Medications Medications Dose Ordered Sig/Darrius Route Start Time Stop Time Status Last Admin Dose Admin Sodium Chloride 10 ml Q8HR IV 08/01/24 22:00 08/06/24 13:41 10 ML Acetaminophen/ Hydrocodone Bitart 1 tab Q4HP PRN PO 08/01/24 17:00 08/03/24 21:34 1 TAB Ondansetron HCl 4 mg Q4HP PRN IV 08/01/24 17:00 08/04/24 06:26 4 MG Docusate Sodium 100 mg BIDPRN PRN PO 08/01/24 17:00 08/05/24 13:06 100 MG Acetaminophen 650 mg Q6HP PRN PO 08/01/24 17:00 Nitroglycerin 0.4 mg Q5MINP PRN SL 08/01/24 17:00 Morphine Sulfate 2 mg Q30M PRN IV 08/01/24 17:00 Latanoprost 1 drop QPM EACHEYE 08/01/24 18:00 08/06/24 17:40 1 DROP Metronidazole 100 ml @ 100 mls/hr Q8HR IV 08/02/24 14:00 08/06/24 13:40 100 MLS/HR Morphine Sulfate 1 mg Q4HP PRN IV 08/02/24 13:15 08/05/24 23:45 1 MG Pantoprazole Sodium 40 mg DAILY IV 08/03/24 10:00 08/06/24 09:39 40 MG Allopurinol 100 mg DAILY PO 08/04/24 10:00 08/06/24 09:39 100 MG Sodium Chloride 1,000 ml @ 50 mls/hr Q20H IV 08/04/24 16:30 08/06/24 09:32 50 MLS/HR Ampicillin Sodium/ Sulbactam Sodium 3 gm/Sodium Chloride 100 ml @ 100 mls/hr Q8H IV 08/05/24 02:00 08/06/24 17:40 100 MLS/HR Albuterol 2.5 mg Q6HPRN PRN NEB 08/05/24 10:15 Clopidogrel Bisulfate 75 mg DAILY PO 08/06/24 10:00 08/06/24 09:39 75 MG Laboratory Results Laboratory Tests 08/05/24 04:35 Urinalysis Test 08/02/24 10:23 Urine Color Light-orange (Yellow) Urine Clarity Clear (Clear) Urine pH 6.0 (5.0-9.0) Urine Specific [place] > 1.050 (1.001-1.035) Urine Protein 1+ (Negative) H Urine Ketones Negative (Negative) Urine Blood Negative /uL (Negative) Urine Nitrite Negative (Negative) Urine Bilirubin Negative (Negative) Urine Urobilinogen Normal mg/dL (Negative) Urine Leukocyte Esterase Negative /uL (Negative) Urine RBC 5 /hpf (0 - 3) Urine Microscopic WBC < 1 /HPF (0-3) Urine Squamous Epithelial Cells Few /hpf (<5) Urine Bacteria None seen /hpf (None Seen) Urine Glucose Normal mg/dL (Normal) Microbiology Microbiology Date/Time Source Procedure Growth Status 08/04/24 16:25 Nose MRSA Screen - Final Complete 08/03/24 06:35 Blood Blood Culture - Preliminary NO GROWTH AFTER 72 HOURS OF INCUBATION. Resulted Assessment/Plan Assessment/Plan #1 sepsis with gallstones: iv antibiotics, ivf, s/p surg #2 cad s/p stents: hold plavix for now dr Tamayo due to bleeding #3 htn #4 h/o cva #5 gout #6 acute renal failure ?vasomotor nephropathy: ivf #7 chronic diastolic heart failure advance care planning- full code-time spent 19 mins continue with care in [facility] per Gen Surg Plan discussed with: Patient Date of Service: Aug 06, 2024 Billing Provider: NATALIIA EDUARDO DO Common Visit Codes: [id number] INP/OBS CARE(HIGH) NATALIIA EDUARDO DO Aug 06, 2024 18:54
[2024-08-07] VITALS (17 sets, daily range): BP systolic 90–129; BP diastolic 55–71; PULSE 60–98; RESP 14–25; TEMP 97.8–98.7; O2SAT 87–98
[2024-08-07] MEDS ORDERED: SODIUM CHLORIDE 0.9% 1,000 ML IV ONE (09:00)
--- NOTE | 2024-08-07 10:52 | DVHPN2 ---
Progress Note - Surgical Date Seen: Aug 07, 2024 Post op day Post op day: 4 Subjective Patient reports: No new complaints, Feels better Review of Systems: HEENT:Normal, CVS:Normal, RESPIRATORY:Normal, GI:Normal, :Normal, MSK:Normal, NEURO:Normal Objective Vital signs Vital Sign Date Time Temp Pulse Resp B/P (MAP) Pulse Ox O2 Delivery O2 Flow Rate FiO2 08/07/24 10:00 62 08/07/24 10:00 108/68 (81) 87 08/07/24 08:00 98.2 98.2 08/07/24 08:00 Nasal Cannula* 4 36 Total Intake and Output 08/06/24 08/06/24 08/07/24 15:00 23:00 07:00 Intake Total 500 ml 1100 ml 1050 ml Output Total 460 ml 660 ml Balance 500 ml 640 ml 390 ml Medications Current Medications Medications Dose Ordered Sig/Darrius Route Start Time Stop Time Status Last Admin Dose Admin Sodium Chloride 10 ml Q8HR IV 08/01/24 22:00 08/07/24 06:02 10 ML Acetaminophen/ Hydrocodone Bitart 1 tab Q4HP PRN PO 08/01/24 17:00 08/07/24 02:51 1 TAB Ondansetron HCl 4 mg Q4HP PRN IV 08/01/24 17:00 08/04/24 06:26 4 MG Docusate Sodium 100 mg BIDPRN PRN PO 08/01/24 17:00 08/05/24 13:06 100 MG Acetaminophen 650 mg Q6HP PRN PO 08/01/24 17:00 Nitroglycerin 0.4 mg Q5MINP PRN SL 08/01/24 17:00 Morphine Sulfate 2 mg Q30M PRN IV 08/01/24 17:00 Latanoprost 1 drop QPM EACHEYE 08/01/24 18:00 08/06/24 17:40 1 DROP Metronidazole 100 ml @ 100 mls/hr Q8HR IV 08/02/24 14:00 08/07/24 06:02 100 MLS/HR Morphine Sulfate 1 mg Q4HP PRN IV 08/02/24 13:15 08/06/24 22:01 1 MG Pantoprazole Sodium 40 mg DAILY IV 08/03/24 10:00 08/07/24 10:37 40 MG Allopurinol 100 mg DAILY PO 08/04/24 10:00 08/07/24 10:37 100 MG Sodium Chloride 1,000 ml @ 50 mls/hr Q20H IV 08/04/24 16:30 08/07/24 06:06 50 MLS/HR Ampicillin Sodium/ Sulbactam Sodium 3 gm/Sodium Chloride 100 ml @ 100 mls/hr Q8H IV 08/05/24 02:00 08/07/24 02:04 100 MLS/HR Albuterol 2.5 mg Q6HPRN PRN NEB 08/05/24 10:15 08/06/24 19:45 2.5 MG Clopidogrel Bisulfate 75 mg DAILY PO 08/06/24 10:00 08/07/24 10:37 75 MG Laboratory Laboratory Tests 08/05/24 04:35 Test 08/05/24 04:35 Range/Units Serum Glucose 138 H 74-106 mg/dL Microbiology Date/Time Source Procedure Growth Status 08/04/24 16:25 Nose MRSA Screen - Final Complete 08/03/24 06:35 Blood Blood Culture - Preliminary NO GROWTH AFTER 72 HOURS OF INCUBATION. Resulted Examination: GENERAL:Normal, HEENT:Normal, NECK:Normal, LUNGS:Normal, CVS:Normal, ABDOMEN:Abnormal (KELECHI drain), MSK:Normal, SKIN:Normal Problem List/Assessment/Plan Problems: (1) Status post laparoscopic cholecystectomy Assessment and Plan no new complaints abdomen soft, non distended, appropriately tender KELECHI drain Serous fluid wounds clean dry and intact labs and notes reviewed Plan continue IV antibiotics full liquid diet patient to ambulate ok to downgrade to telemetry Dr. Tamayo agrees with plan 08/07/2024 no new complaints abdomen soft, non distended, non tender KELECHI drain serious fluid 10cc wounds clean dry and intact per patient had a bowel movement , denies nausea or vomiting ok to downgrade to telemetry patient to ambulate Plan discussed with Plan discussed with: Patient, Other (Dr. Tamayo) Visit Coding Surgery Date of Service if different f: Aug 07, 2024 Billing Provider: JOSIAH TAMAYO MD Surgery Visit Codes: [id number] INP/OBS CARE(HIGH) KRYSTLE ALEXANDRA PRODUCTION INTERN Aug 07, 2024 10:52
--- NOTE | 2024-08-07 22:16 | DVHPN2 ---
Reviewed: Care Plan, H&P, Labs, Medications, Previous Orders, Radiology Changes from previous H/P or p: No Changes General: Per HPI Eyes: No Pain, No Vision change, No Conjunctivae inflammation, No Eyelid inflammation, No Other, No Redness ENT: No Ear pain, No Ear discharge, No Nose pain, No Nose discharge, No Nose congestion, No Mouth pain, No Mouth swelling, No Throat pain, No Throat swelling, No Other Cardiovascular: Chest Pain, Palpitations; No Orthopnea, No Paroxysmal Noc. Dyspnea, No Edema, No Lt Headedness, No Other Respiratory: No Cough, No Dry; Shortness of breath, SOB with excertion; No Wheezing, No Hemoptysis; Pleuritic Pain; No Sputum, No Other Gastrointestinal: No Nausea, No Vomiting, No Abdominal Pain, No Diarrhea, No Constipation, No Melena, No Hematochezia, No Other Genitourinary: No Dysuria, No Frequency, No Incontinence, No Hematuria, No Retention, No Other Musculoskeletal: No other, No neck pain, No shoulder pain, No arm pain, No back pain, No hand pain, No leg pain, No foot pain Skin: No Rash, No Lesions, No Jaundice, No Bruising, No Other Objective Vitals Vital Signs Date Time Temp Pulse Resp B/P (MAP) Pulse Ox O2 Delivery O2 Flow Rate FiO2 08/07/24 21:00 98.5 72 17 129/70 (89) 96 98.5 08/07/24 16:26 Nasal Cannula 2.0 08/07/24 16:26 28 Intake/Output Intake and Output 08/07/24 07:00 Intake Total 2650 ml Output Total 1120 ml Balance 1530 ml Intake Oral 850 ml IV Total 1800 ml Output Urine Total 1100 ml Other 20 ml Medications Current Medications Medications Dose Ordered Sig/Darrius Route Start Time Stop Time Status Last Admin Dose Admin Sodium Chloride 10 ml Q8HR IV 08/01/24 22:00 08/07/24 21:15 10 ML Acetaminophen/ Hydrocodone Bitart 1 tab Q4HP PRN PO 08/01/24 17:00 08/07/24 21:15 1 TAB Ondansetron HCl 4 mg Q4HP PRN IV 08/01/24 17:00 08/04/24 06:26 4 MG Docusate Sodium 100 mg BIDPRN PRN PO 08/01/24 17:00 08/05/24 13:06 100 MG Acetaminophen 650 mg Q6HP PRN PO 08/01/24 17:00 Nitroglycerin 0.4 mg Q5MINP PRN SL 08/01/24 17:00 Morphine Sulfate 2 mg Q30M PRN IV 08/01/24 17:00 Latanoprost 1 drop QPM EACHEYE 08/01/24 18:00 08/07/24 18:20 1 DROP Metronidazole 100 ml @ 100 mls/hr Q8HR IV 08/02/24 14:00 08/07/24 21:11 100 MLS/HR Morphine Sulfate 1 mg Q4HP PRN IV 08/02/24 13:15 08/06/24 22:01 1 MG Pantoprazole Sodium 40 mg DAILY IV 08/03/24 10:00 08/07/24 10:37 40 MG Allopurinol 100 mg DAILY PO 08/04/24 10:00 08/07/24 10:37 100 MG Sodium Chloride 1,000 ml @ 50 mls/hr Q20H IV 08/04/24 16:30 08/07/24 06:06 50 MLS/HR Ampicillin Sodium/ Sulbactam Sodium 3 gm/Sodium Chloride 100 ml @ 100 mls/hr Q8H IV 08/05/24 02:00 08/07/24 18:19 100 MLS/HR Albuterol 2.5 mg Q6HPRN PRN NEB 08/05/24 10:15 08/07/24 16:24 2.5 MG Clopidogrel Bisulfate 75 mg DAILY PO 08/06/24 10:00 08/07/24 10:37 75 MG Laboratory Results Laboratory Tests 08/05/24 04:35 Urinalysis Test 08/02/24 10:23 Urine Color Light-orange (Yellow) Urine Clarity Clear (Clear) Urine pH 6.0 (5.0-9.0) Urine Specific [place] > 1.050 (1.001-1.035) Urine Protein 1+ (Negative) H Urine Ketones Negative (Negative) Urine Blood Negative /uL (Negative) Urine Nitrite Negative (Negative) Urine Bilirubin Negative (Negative) Urine Urobilinogen Normal mg/dL (Negative) Urine Leukocyte Esterase Negative /uL (Negative) Urine RBC 5 /hpf (0 - 3) Urine Microscopic WBC < 1 /HPF (0-3) Urine Squamous Epithelial Cells Few /hpf (<5) Urine Bacteria None seen /hpf (None Seen) Urine Glucose Normal mg/dL (Normal) Microbiology Microbiology Date/Time Source Procedure Growth Status 08/04/24 16:25 Nose MRSA Screen - Final Complete 08/03/24 06:35 Blood Blood Culture - Preliminary NO GROWTH AFTER 72 HOURS OF INCUBATION. Resulted Assessment/Plan Assessment/Plan #1 sepsis with gallstones: iv antibiotics, ivf, s/p surg #2 cad s/p stents: hold plavix for now dr Tamayo due to bleeding #3 htn #4 h/o cva #5 gout #6 acute renal failure ?vasomotor nephropathy: ivf #7 chronic diastolic heart failure advance care planning- full code-time spent 19 mins continue with care in [facility] per Gen Surg Plan discussed with: Patient Date of Service: Aug 07, 2024 Billing Provider: NATALIIA EDUARDO DO Common Visit Codes: [id number] INP/OBS CARE(HIGH) NATALIIA EDUARDO DO Aug 07, 2024 22:16
[2024-08-08] VITALS (11 sets, daily range): BP systolic 120–137; BP diastolic 67–75; PULSE 55–90; RESP 16–20; TEMP 98–99; O2SAT 91–96
--- NOTE | 2024-08-08 15:54 | DVHPN2 ---
Progress Note - Dictate Date Seen: Aug 06, 2024 Has the PT tested + for MRSA If YES, has PT been informed?: No Medical Necessity Reason Pt with a Central, PICC or Fol: No Subjective PT WITH CHEST PAIN PLEURITIC HTN CAD RIGHT PARIETAL CVA GOUT HYPERTENSIVE HEART DISEASE vital signs Vital Sign Date Time Temp Pulse Resp B/P (MAP) Pulse Ox O2 Delivery O2 Flow Rate FiO2 08/08/24 12:37 98.7 70 16 124/74 (91) 94 98.7 08/08/24 10:15 2.0 28 08/08/24 08:48 Nasal Cannula Total Intake and Output 08/07/24 08/07/24 08/08/24 14:59 22:59 06:59 Intake Total 250 ml 100 ml 1250 ml Output Total 1475 ml Balance 250 ml 100 ml -225 ml medications Current Medications Medications Dose Ordered Sig/Darrius Route Start Time Stop Time Status Last Admin Dose Admin Sodium Chloride 10 ml Q8HR IV 08/01/24 22:00 08/08/24 13:44 10 ML Acetaminophen/ Hydrocodone Bitart 1 tab Q4HP PRN PO 08/01/24 17:00 08/08/24 09:23 1 TAB Ondansetron HCl 4 mg Q4HP PRN IV 08/01/24 17:00 08/04/24 06:26 4 MG Docusate Sodium 100 mg BIDPRN PRN PO 08/01/24 17:00 08/05/24 13:06 100 MG Acetaminophen 650 mg Q6HP PRN PO 08/01/24 17:00 Nitroglycerin 0.4 mg Q5MINP PRN SL 08/01/24 17:00 Morphine Sulfate 2 mg Q30M PRN IV 08/01/24 17:00 Latanoprost 1 drop QPM EACHEYE 08/01/24 18:00 08/07/24 18:20 1 DROP Metronidazole 100 ml @ 100 mls/hr Q8HR IV 08/02/24 14:00 08/08/24 13:44 100 MLS/HR Morphine Sulfate 1 mg Q4HP PRN IV 08/02/24 13:15 08/06/24 22:01 1 MG Pantoprazole Sodium 40 mg DAILY IV 08/03/24 10:00 08/08/24 09:23 40 MG Allopurinol 100 mg DAILY PO 08/04/24 10:00 2/17/25 09:23 100 MG Sodium Chloride 1,000 ml @ 50 mls/hr Q20H IV 08/04/24 16:30 08/07/24 06:06 50 MLS/HR Ampicillin Sodium/ Sulbactam Sodium 3 gm/Sodium Chloride 100 ml @ 100 mls/hr Q8H IV 08/05/24 02:00 08/08/24 09:24 100 MLS/HR Albuterol 2.5 mg Q6HPRN PRN NEB 08/05/24 10:15 08/07/24 16:24 2.5 MG Clopidogrel Bisulfate 75 mg DAILY PO 08/06/24 10:00 08/07/24 10:37 75 MG objective HEENT: Pupils are reactive. Funduscopic exam shows no AV nicking, no exudates, no papilledema is noted. Tympanic membranes are negative. Sinuses are nontender. Nasal passages are intact. Oral mucosa moist. Posterior pharynx without any exudates. NECK: No cervical adenopathy. No supraclavicular adenopathy. Carotid pulses are 2+ symmetrical, normal upstroke and contour. No JVD appreciated. No nuchal rigidity. Thyroid is within normal limits. PULMONARY: Clear to auscultation in all lung ko. Tympanic to percussion. Negative for rhonchi or wheezing. Negative for egophony. CARDIOVASCULAR: Regular rate. There is a soft 2/6 systolic murmur along the left sternal border. PMI is not displaced. ABDOMEN: Soft, nontender. Normal bowel sounds. No epigastric tenderness, no CVA tenderness. Liver approximately 5 cm by percussion. Spleen tip nonpalpable. However, the patient does have some mild suprapubic tenderness because of the right inguinal hernia. Stool guaiac is negative. EXTREMITIES: 2+ pulses, no edema noted. laboratory and microbiology Laboratory Tests 08/05/24 04:35 Test 08/05/24 04:35 Range/Units Serum Glucose 138 H 74-106 mg/dL Problem List CHEST PAIN PLEURITIC HTN CAD RIGHT PARIETAL CVA GOUT HYPERTENSIVE HEART DISEASE Assessment/Plan CTA CHEST TROPONIN NEGATIVE CT SHOWS CHOLELITHIASIS POSITIVE BOOD CX START ABX MAY PROCEED WITH SURGERY ASA II STRESS CARDIOLITE NEGATIVE FOR ISCHEMIA MAY PROCEED WITH CHOLECYSTECTOMY S/P CHOLECYSTECTOMY POD #1 RESTART PLAVIX TOLERATING PLAVIX NO BLEEDING Dietary Evaluation Review Comments: 1) Advance to cardiac diet when medically feasible 2) Encourage low-fat diet upon d/c 3) Refer to outpatient RD for weight management Expected Outcomes/Goals: 1) appetite and labs to improve 2) diet to advance 3) f/u in 2-3 days Plan discussed with: Patient Critical Care Time(min): 35 RANDY VERMA MD Aug 08, 2024 15:54
--- NOTE | 2024-08-08 15:59 | DVHPN2 ---
Progress Note - Dictate Date Seen: Aug 08, 2024 Has the PT tested + for MRSA If YES, has PT been informed?: No Medical Necessity Reason Pt with a Central, PICC or Fol: No Subjective PT WITH CHEST PAIN PLEURITIC HTN CAD RIGHT PARIETAL CVA GOUT HYPERTENSIVE HEART DISEASE vital signs Vital Sign Date Time Temp Pulse Resp B/P (MAP) Pulse Ox O2 Delivery O2 Flow Rate FiO2 08/08/24 12:37 98.7 70 16 124/74 (91) 94 98.7 08/08/24 10:15 2.0 28 08/08/24 08:48 Nasal Cannula Total Intake and Output 08/07/24 08/07/24 08/08/24 14:59 22:59 06:59 Intake Total 250 ml 100 ml 1250 ml Output Total 1475 ml Balance 250 ml 100 ml -225 ml medications Current Medications Medications Dose Ordered Sig/Darrius Route Start Time Stop Time Status Last Admin Dose Admin Sodium Chloride 10 ml Q8HR IV 08/01/24 22:00 08/08/24 13:44 10 ML Acetaminophen/ Hydrocodone Bitart 1 tab Q4HP PRN PO 08/01/24 17:00 08/08/24 09:23 1 TAB Ondansetron HCl 4 mg Q4HP PRN IV 08/01/24 17:00 08/04/24 06:26 4 MG Docusate Sodium 100 mg BIDPRN PRN PO 08/01/24 17:00 08/05/24 13:06 100 MG Acetaminophen 650 mg Q6HP PRN PO 08/01/24 17:00 Nitroglycerin 0.4 mg Q5MINP PRN SL 08/01/24 17:00 Morphine Sulfate 2 mg Q30M PRN IV 08/01/24 17:00 Latanoprost 1 drop QPM EACHEYE 08/01/24 18:00 08/07/24 18:20 1 DROP Metronidazole 100 ml @ 100 mls/hr Q8HR IV 08/02/24 14:00 08/08/24 13:44 100 MLS/HR Morphine Sulfate 1 mg Q4HP PRN IV 08/02/24 13:15 08/06/24 22:01 1 MG Pantoprazole Sodium 40 mg DAILY IV 08/03/24 10:00 08/08/24 09:23 40 MG Allopurinol 100 mg DAILY PO 08/04/24 10:00 2/17/25 09:23 100 MG Sodium Chloride 1,000 ml @ 50 mls/hr Q20H IV 08/04/24 16:30 08/07/24 06:06 50 MLS/HR Ampicillin Sodium/ Sulbactam Sodium 3 gm/Sodium Chloride 100 ml @ 100 mls/hr Q8H IV 08/05/24 02:00 08/08/24 09:24 100 MLS/HR Albuterol 2.5 mg Q6HPRN PRN NEB 08/05/24 10:15 08/07/24 16:24 2.5 MG Clopidogrel Bisulfate 75 mg DAILY PO 08/06/24 10:00 08/07/24 10:37 75 MG objective HEENT: Pupils are reactive. Funduscopic exam shows no AV nicking, no exudates, no papilledema is noted. Tympanic membranes are negative. Sinuses are nontender. Nasal passages are intact. Oral mucosa moist. Posterior pharynx without any exudates. NECK: No cervical adenopathy. No supraclavicular adenopathy. Carotid pulses are 2+ symmetrical, normal upstroke and contour. No JVD appreciated. No nuchal rigidity. Thyroid is within normal limits. PULMONARY: Clear to auscultation in all lung ko. Tympanic to percussion. Negative for rhonchi or wheezing. Negative for egophony. CARDIOVASCULAR: Regular rate. There is a soft 2/6 systolic murmur along the left sternal border. PMI is not displaced. ABDOMEN: Soft, nontender. Normal bowel sounds. No epigastric tenderness, no CVA tenderness. Liver approximately 5 cm by percussion. Spleen tip nonpalpable. However, the patient does have some mild suprapubic tenderness because of the right inguinal hernia. Stool guaiac is negative. EXTREMITIES: 2+ pulses, no edema noted. laboratory and microbiology Laboratory Tests 08/05/24 04:35 Test 08/05/24 04:35 Range/Units Serum Glucose 138 H 74-106 mg/dL Problem List CHEST PAIN PLEURITIC HTN CAD RIGHT PARIETAL CVA GOUT HYPERTENSIVE HEART DISEASE Assessment/Plan CTA CHEST TROPONIN NEGATIVE CT SHOWS CHOLELITHIASIS POSITIVE BOOD CX START ABX MAY PROCEED WITH SURGERY ASA II STRESS CARDIOLITE NEGATIVE FOR ISCHEMIA MAY PROCEED WITH CHOLECYSTECTOMY S/P CHOLECYSTECTOMY POD #1 RESTART PLAVIX TOLERATING PLAVIX NO BLEEDING Reviewed lab: WBC, MCHC, MPV are Normal. Dietary Evaluation Review Comments: 1) Advance to cardiac diet when medically feasible 2) Encourage low-fat diet upon d/c 3) Refer to outpatient RD for weight management Expected Outcomes/Goals: 1) appetite and labs to improve 2) diet to advance 3) f/u in 2-3 days Plan discussed with: Patient RANDY VERMA MD Aug 08, 2024 15:59
[2024-08-08 16:53] LABS: Basophils # (auto) 0 10 ^3/uL (0-0.2); Basophils % (auto) 0.3 % (0.0-2.0); Eosinophils # (auto) 0.1 10 ^3/uL (0-0.8); Eosinophils % (auto) 2.3 % (0.0-7.0); Hematocrit 32.8 % (41.0-53.0); Hemoglobin 10.9 g/dL (13.5-17.5); Lymphocytes # (auto) 0.7 10 ^3/uL (0.4-5.4); Lymphocytes % (auto) 12.2 % (10.0-50.0); Mean Corpuscular Hemoglobin 32.2 pg (28.0-32.0); Mean Corpuscular Hgb Conc. 33.2 g/dL (32.0-36.0); Monocytes # (auto) 0.7 10 ^3/uL (0-1.3); Neutrophils # (auto) 4.5 10 ^3/uL (1.6-8.6); Neutrophils % (auto) 74.2 % (37.0-80.0); Nucleated Red Blood Cells % 0.1 %; Platelet Count (auto) 302 10^3/uL (140-450); Red Blood Cells 3.38 10^6/uL (4.5-5.90); Red Cell Distribution Width 14.5 % (11.8-14.3); White Blood Cell 6.1 10^3/uL (4.4-10.8)
--- NOTE | 2024-08-08 16:57 | DVHPN2 ---
Progress Note Date Seen: Aug 08, 2024 Has the PT tested + for MRSA If YES, has PT been informed?: No Medical Necessity Reason Pt with a Central, PICC or Fol: No Subjective Patient reports: No new complaints Review of Systems: HEENT:Normal, CVS:Normal, RESPIRATORY:Normal, GI:Normal, :Normal, MSK:Normal, NEURO:Normal Objective vital signs Vital Sign Date Time Temp Pulse Resp B/P (MAP) Pulse Ox O2 Delivery O2 Flow Rate FiO2 08/08/24 12:37 98.7 70 16 124/74 (91) 94 98.7 08/08/24 10:15 2.0 28 08/08/24 08:48 Nasal Cannula Total Intake and Output 08/07/24 08/07/24 08/08/24 15:00 23:00 07:00 Intake Total 100 ml 100 ml 1250 ml Output Total 1475 ml Balance 100 ml 100 ml -225 ml medications Current Medications Medications Dose Ordered Sig/Darrius Route Start Time Stop Time Status Last Admin Dose Admin Sodium Chloride 10 ml Q8HR IV 08/01/24 22:00 08/08/24 13:44 10 ML Acetaminophen/ Hydrocodone Bitart 1 tab Q4HP PRN PO 08/01/24 17:00 08/08/24 09:23 1 TAB Ondansetron HCl 4 mg Q4HP PRN IV 08/01/24 17:00 08/04/24 06:26 4 MG Docusate Sodium 100 mg BIDPRN PRN PO 08/01/24 17:00 08/05/24 13:06 100 MG Acetaminophen 650 mg Q6HP PRN PO 08/01/24 17:00 Nitroglycerin 0.4 mg Q5MINP PRN SL 08/01/24 17:00 Morphine Sulfate 2 mg Q30M PRN IV 08/01/24 17:00 Latanoprost 1 drop QPM EACHEYE 08/01/24 18:00 08/07/24 18:20 1 DROP Metronidazole 100 ml @ 100 mls/hr Q8HR IV 08/02/24 14:00 08/08/24 13:44 100 MLS/HR Morphine Sulfate 1 mg Q4HP PRN IV 08/02/24 13:15 08/06/24 22:01 1 MG Pantoprazole Sodium 40 mg DAILY IV 08/03/24 10:00 08/08/24 09:23 40 MG Allopurinol 100 mg DAILY PO 08/04/24 10:00 08/08/24 09:23 100 MG Sodium Chloride 1,000 ml @ 50 mls/hr Q20H IV 08/04/24 16:30 08/07/24 06:06 50 MLS/HR Ampicillin Sodium/ Sulbactam Sodium 3 gm/Sodium Chloride 100 ml @ 100 mls/hr Q8H IV 08/05/24 02:00 08/08/24 09:24 100 MLS/HR Albuterol 2.5 mg Q6HPRN PRN NEB 08/05/24 10:15 08/07/24 16:24 2.5 MG Clopidogrel Bisulfate 75 mg DAILY PO 08/06/24 10:00 08/07/24 10:37 75 MG Examination: GENERAL:Normal, HEENT:Normal, NECK:Normal, LUNGS:Normal, CVS:Normal, ABDOMEN:Normal, ABDOMEN:Abnormal (drain+), MSK:Normal, SKIN:Normal, NEURO:Normal, :Normal laboratory and microbiology Laboratory Tests 08/08/24 16:30 08/05/24 04:35 Test 08/05/24 04:35 Range/Units Serum Glucose 138 H 74-106 mg/dL Microbiology Date/Time Source Procedure Growth Status 08/04/24 16:25 Nose MRSA Screen - Final Complete 08/03/24 06:35 Blood Blood Culture - Final NO GROWTH AFTER 5 DAYS OF INCUBATION. Complete Problem List/Assessment/Plan Problem List/Assessment/Plan #1 sepsis with gallstones with s aureus: ct abdomen, iv antibiotics #2 cad s/p stents: plavix #3 htn #4 h/o cva #5 gout #6 acute renal failure ?vasomotor nephropathy: improved #7 chronic diastolic heart failure #8 acute resp failure: wean oxygen advance care planning- full code-time spent 19 mins Plan discussed with: Patient Dietary Evaluation Review Comments: 1) Advance to cardiac diet when medically feasible 2) Encourage low-fat diet upon d/c 3) Refer to outpatient RD for weight management Expected Outcomes/Goals: 1) appetite and labs to improve 2) diet to advance 3) f/u in 2-3 days Date of Service: Aug 08, 2024 Billing Provider: JANNA PALUMBO MD Common Visit Codes: [id number] INP/OBS CARE(HIGH) JANNA PALUMBO MD Aug 08, 2024 16:56
[2024-08-09] VITALS (11 sets, daily range): BP systolic 111–146; BP diastolic 68–80; PULSE 57–98; RESP 16–18; TEMP 98.1–98.4; O2SAT 93–98
--- NOTE | 2024-08-09 03:46 | DVH ---
Exam: CT CT AB PEL WO CON-NO ORAL OR IV History: ABD PAIN S/P LAP NILO Comparison Study: None available at time of dictation. TECHNIQUE: Multidetector CT of the abdomen was performed from lung bases to pubic symphysis. Imaging was performed without IV contrast. Axial, coronal and sagittal multiplanar reformats were obtained fr om the axial data set by the technologist. Radiation optimization: All CT scans at this facility use at least one of these dose optimization patrick hniques: automated exposure control mA and/or kV adjustment per patient size (includes targeted exam s where dose is matched to clinical indication) or iterative reconstruction. Radiation Dose Information: CT Dose: CTDI volume is 18.9 mGy. Dose-length product is 1145.81 mGy*cm FINDINGS: Evaluation of solid organs is limited due to lack of intravenous contrast use. Findings: Imaged portions of the lung bases demonstrate small to moderate bilateral pleural effusions. There is cardiomegaly with marked coronary artery calcifications. Moderate pericardial effusion. Hypodensity within the liver measuring 3.5 cm likely represent cysts. Prior cholecystectomy with surg ical drain in the region of the gallbladder fossa. The spleen, pancreas, and adrenal glands appear un remarkable. Kidneys appear symmetric without hydronephrosis. No bowel obstruction. Scattered colonic diverticulosis. No free fluid, free air, or adenopathy. Fat containing umbilical hernia. Degenerative changes of the spine without suspicious osseous lesion. IMPRESSION: 1. Expected appearance post cholecystectomy. 2. Small to moderate bilateral pleural effusions with moderate pericardial effusion.
[2024-08-09 06:05] LABS: Basophils # (auto) 0 10 ^3/uL (0-0.2); Basophils % (auto) 0.3 % (0.0-2.0); Eosinophils # (auto) 0.1 10 ^3/uL (0-0.8); Eosinophils % (auto) 2.3 % (0.0-7.0); Hematocrit 31.7 % (41.0-53.0); Hemoglobin 10.6 g/dL (13.5-17.5); Lymphocytes # (auto) 0.8 10 ^3/uL (0.4-5.4); Lymphocytes % (auto) 13.2 % (10.0-50.0); Mean Corpuscular Hemoglobin 32.1 pg (28.0-32.0); Mean Corpuscular Hgb Conc. 33.5 g/dL (32.0-36.0); Mean Corpuscular Volume 95.6 fL (80.0-100.0); Monocytes # (auto) 0.6 10 ^3/uL (0-1.3); Monocytes % (auto) 9.7 % (0.0-12.0); Neutrophils # (auto) 4.8 10 ^3/uL (1.6-8.6); Neutrophils % (auto) 74.5 % (37.0-80.0); Nucleated Red Blood Cells % 0.1 %; Platelet Count (auto) 302 10^3/uL (140-450); Red Blood Cells 3.31 10^6/uL (4.5-5.90); Red Cell Distribution Width 14.1 % (11.8-14.3); White Blood Cell 6.4 10^3/uL (4.4-10.8)
[2024-08-09 06:11] LABS: Alanine Aminotransferase 14 U/L (7-40); Alkaline Phosphatase 66 U/L (46-116); Anion Gap 10 (5-15); BUN/Creatinine Ratio 14.7 (10.0-20.0); Blood Urea Nitrogen 11 mg/dL (9-23); Carbon Dioxide 24 mmol/L (20-31); Chloride 104 mmol/L (98-107); Glucose 101 mg/dL (74-106); Potassium 3.5 mmol/L (3.5-5.1); Sodium 138 mmol/L (136-145)
[2024-08-09 06:13] LABS: Albumin 3.1 g/dL (3.2-4.8); Aspartate Aminotransferase 20 U/L (13-40); Bilirubin, Total 0.5 mg/dL (0.2-1.0)
[2024-08-09 06:18] LABS: Total Protein 5.5 g/dL (5.7-8.2)
--- NOTE | 2024-08-09 11:54 | DVHPN2 ---
Progress Note Date Seen: Aug 09, 2024 Has the PT tested + for MRSA If YES, has PT been informed?: No Medical Necessity Reason Pt with a Central, PICC or Fol: No Subjective Patient reports: No new complaints Review of Systems: HEENT:Normal, CVS:Normal, RESPIRATORY:Normal, GI:Normal, :Normal, MSK:Normal, NEURO:Normal Objective vital signs Vital Sign Date Time Temp Pulse Resp B/P (MAP) Pulse Ox O2 Delivery O2 Flow Rate FiO2 08/09/24 09:00 98.3 57 17 141/78 (99) 93 98.3 08/09/24 07:40 Nasal Cannula* 1 24 Total Intake and Output 08/08/24 08/08/24 08/09/24 15:00 23:00 07:00 Intake Total 100 ml 1100 ml 575 ml Output Total 345 ml Balance 100 ml 1100 ml 230 ml medications Current Medications Medications Dose Ordered Sig/Darrius Route Start Time Stop Time Status Last Admin Dose Admin Sodium Chloride 10 ml Q8HR IV 08/01/24 22:00 08/09/24 05:01 10 ML Acetaminophen/ Hydrocodone Bitart 1 tab Q4HP PRN PO 08/01/24 17:00 08/09/24 02:28 1 TAB Ondansetron HCl 4 mg Q4HP PRN IV 08/01/24 17:00 08/04/24 06:26 4 MG Docusate Sodium 100 mg BIDPRN PRN PO 08/01/24 17:00 08/05/24 13:06 100 MG Acetaminophen 650 mg Q6HP PRN PO 08/01/24 17:00 Nitroglycerin 0.4 mg Q5MINP PRN SL 08/01/24 17:00 Morphine Sulfate 2 mg Q30M PRN IV 08/01/24 17:00 Latanoprost 1 drop QPM EACHEYE 08/01/24 18:00 08/08/24 18:07 1 DROP Morphine Sulfate 1 mg Q4HP PRN IV 08/02/24 13:15 08/06/24 22:01 1 MG Pantoprazole Sodium 40 mg DAILY IV 08/03/24 10:00 08/09/24 10:05 40 MG Allopurinol 100 mg DAILY PO 08/04/24 10:00 08/09/24 10:06 100 MG Ampicillin Sodium/ Sulbactam Sodium 3 gm/Sodium Chloride 100 ml @ 100 mls/hr Q8H IV 08/05/24 02:00 08/09/24 10:58 100 MLS/HR Albuterol 2.5 mg Q6HPRN PRN NEB 08/05/24 10:15 08/07/24 16:24 2.5 MG Clopidogrel Bisulfate 75 mg DAILY PO 08/06/24 10:00 08/09/24 10:06 75 MG Examination: GENERAL:Normal, HEENT:Normal, NECK:Normal, LUNGS:Normal, CVS:Normal, ABDOMEN:Normal, ABDOMEN:Abnormal (paulino drain+), MSK:Normal, SKIN:Normal, NEURO:Normal, :Normal laboratory and microbiology Laboratory Tests 08/09/24 04:58 Test 08/09/24 04:58 Range/Units Serum Glucose 101 74-106 mg/dL Microbiology Date/Time Source Procedure Growth Status 08/04/24 16:25 Nose MRSA Screen - Final Complete 08/03/24 06:35 Blood Blood Culture - Final NO GROWTH AFTER 5 DAYS OF INCUBATION. Complete Problem List/Assessment/Plan Problem List/Assessment/Plan #1 sepsis with gallstones with s aureus: ct abdomen, antibiotics #2 cad s/p stents: plavix #3 htn #4 h/o cva #5 gout #6 acute renal failure ?vasomotor nephropathy: improved #7 acute on chronic diastolic heart failure: lasix iv #8 acute resp failure: wean oxygen advance care planning- full code-time spent 19 mins Plan discussed with: Patient, Spouse My Orders My Orders Orders - JANNA PALUMBO MD Procedure Category Date Status Time Ct Ab Pel Wo Con-No CT 08/09/24 Resulted Oral Or Iv 08:00 2 Gm Sodium Diet DIET 08/08/24 Transmitted Dinner Dietary Evaluation Review Comments: 1) Advance to cardiac diet when medically feasible 2) Encourage low-fat diet upon d/c 3) Refer to outpatient RD for weight management Expected Outcomes/Goals: 1) appetite and labs to improve 2) diet to advance 3) f/u in 2-3 days Date of Service: Aug 09, 2024 Billing Provider: JANNA PALUMBO MD Common Visit Codes: [id number] INP/OBS CARE(HIGH) JANNA PALUMBO MD Aug 09, 2024 11:54
[2024-08-09] MEDS: POTASSIUM CHL 20 Meq TABLET PO ONE (14:01)
[2024-08-09] MEDS: FUROSEMIDE 20 MG/2 ML VIAL IV ONE (14:01)
--- NOTE | 2024-08-09 14:06 | DVHPN2 ---
Progress Note - Dictate Date Seen: Aug 09, 2024 Has the PT tested + for MRSA If YES, has PT been informed?: No Medical Necessity Reason Pt with a Central, PICC or Fol: No Subjective PT WITH CHEST PAIN PLEURITIC HTN CAD RIGHT PARIETAL CVA GOUT HYPERTENSIVE HEART DISEASE vital signs Vital Sign Date Time Temp Pulse Resp B/P (MAP) Pulse Ox O2 Delivery O2 Flow Rate FiO2 08/09/24 09:00 98.3 57 17 141/78 (99) 93 98.3 08/09/24 07:40 Nasal Cannula* 1 24 Total Intake and Output 08/08/24 08/08/24 08/09/24 15:00 23:00 07:00 Intake Total 100 ml 1100 ml 575 ml Output Total 345 ml Balance 100 ml 1100 ml 230 ml medications Current Medications Medications Dose Ordered Sig/Darrius Route Start Time Stop Time Status Last Admin Dose Admin Sodium Chloride 10 ml Q8HR IV 08/01/24 22:00 08/09/24 12:07 10 ML Acetaminophen/ Hydrocodone Bitart 1 tab Q4HP PRN PO 08/01/24 17:00 08/09/24 02:28 1 TAB Ondansetron HCl 4 mg Q4HP PRN IV 08/01/24 17:00 08/04/24 06:26 4 MG Docusate Sodium 100 mg BIDPRN PRN PO 08/01/24 17:00 08/05/24 13:06 100 MG Acetaminophen 650 mg Q6HP PRN PO 08/01/24 17:00 Nitroglycerin 0.4 mg Q5MINP PRN SL 08/01/24 17:00 Morphine Sulfate 2 mg Q30M PRN IV 08/01/24 17:00 Latanoprost 1 drop QPM EACHEYE 08/01/24 18:00 08/08/24 18:07 1 DROP Morphine Sulfate 1 mg Q4HP PRN IV 08/02/24 13:15 08/06/24 22:01 1 MG Allopurinol 100 mg DAILY PO 08/04/24 10:00 08/09/24 10:06 100 MG Albuterol 2.5 mg Q6HPRN PRN NEB 08/05/24 10:15 08/07/24 16:24 2.5 MG Clopidogrel Bisulfate 75 mg DAILY PO 08/06/24 10:00 08/09/24 10:06 75 MG Amoxicillin/ Clavulanate Potassium 875 mg Q12HR PO 08/09/24 22:00 Furosemide 20 mg DAILY IV 08/10/24 10:00 Potassium Chloride 20 meq DAILY PO 08/10/24 10:00 objective HEENT: Pupils are reactive. Funduscopic exam shows no AV nicking, no exudates, no papilledema is noted. Tympanic membranes are negative. Sinuses are nontender. Nasal passages are intact. Oral mucosa moist. Posterior pharynx without any exudates. NECK: No cervical adenopathy. No supraclavicular adenopathy. Carotid pulses are 2+ symmetrical, normal upstroke and contour. No JVD appreciated. No nuchal rigidity. Thyroid is within normal limits. PULMONARY: Clear to auscultation in all lung ko. Tympanic to percussion. Negative for rhonchi or wheezing. Negative for egophony. CARDIOVASCULAR: Regular rate. There is a soft 2/6 systolic murmur along the left sternal border. PMI is not displaced. ABDOMEN: Soft, nontender. Normal bowel sounds. No epigastric tenderness, no CVA tenderness. Liver approximately 5 cm by percussion. Spleen tip nonpalpable. However, the patient does have some mild suprapubic tenderness because of the right inguinal hernia. Stool guaiac is negative. EXTREMITIES: 2+ pulses, no edema noted. laboratory and microbiology Laboratory Tests 08/09/24 04:58 Test 08/09/24 04:58 Range/Units Serum Glucose 101 74-106 mg/dL Problem List CHEST PAIN PLEURITIC HTN CAD RIGHT PARIETAL CVA GOUT HYPERTENSIVE HEART DISEASE Assessment/Plan CTA CHEST TROPONIN NEGATIVE CT SHOWS CHOLELITHIASIS POSITIVE BOOD CX START ABX MAY PROCEED WITH SURGERY ASA II STRESS CARDIOLITE NEGATIVE FOR ISCHEMIA MAY PROCEED WITH CHOLECYSTECTOMY S/P CHOLECYSTECTOMY POD #1 RESTART PLAVIX TOLERATING PLAVIX NO BLEEDING DC HOME IN AM Reviewed lab: WBC, MCV, MCH are Normal. Dietary Evaluation Review Comments: 1) Advance to cardiac diet when medically feasible 2) Encourage low-fat diet upon d/c 3) Refer to outpatient RD for weight management Expected Outcomes/Goals: 1) appetite and labs to improve 2) diet to advance 3) f/u in 2-3 days Plan discussed with: Patient RANDY VERMA MD Aug 09, 2024 14:06
[2024-08-09] MEDS: AMOXICILLIN/CLAVUL 875 MG TAB PO SCH (20:59)
--- NOTE | 2024-08-09 22:37 | DVHPN2 ---
Progress Note - Surgical Date Seen: Aug 09, 2024 Post op day Post op day: 6 Subjective Patient reports: No new complaints, Feels better Review of Systems: HEENT:Normal, CVS:Normal, RESPIRATORY:Normal, GI:Normal, :Normal, MSK:Normal, NEURO:Normal Objective Vital signs Vital Sign Date Time Temp Pulse Resp B/P (MAP) Pulse Ox O2 Delivery O2 Flow Rate FiO2 08/09/24 21:00 98.1 91 18 122/80 (94) 96 98.1 08/09/24 20:00 Room Air* 0 21 Total Intake and Output 08/08/24 08/08/24 08/09/24 15:00 23:00 07:00 Intake Total 100 ml 1100 ml 575 ml Output Total 345 ml Balance 100 ml 1100 ml 230 ml Medications Current Medications Medications Dose Ordered Sig/Darrius Route Start Time Stop Time Status Last Admin Dose Admin Sodium Chloride 10 ml Q8HR IV 08/01/24 22:00 08/09/24 20:59 10 ML Acetaminophen/ Hydrocodone Bitart 1 tab Q4HP PRN PO 08/01/24 17:00 08/09/24 20:58 1 TAB Ondansetron HCl 4 mg Q4HP PRN IV 08/01/24 17:00 08/04/24 06:26 4 MG Docusate Sodium 100 mg BIDPRN PRN PO 08/01/24 17:00 08/05/24 13:06 100 MG Acetaminophen 650 mg Q6HP PRN PO 08/01/24 17:00 Nitroglycerin 0.4 mg Q5MINP PRN SL 08/01/24 17:00 Morphine Sulfate 2 mg Q30M PRN IV 08/01/24 17:00 Latanoprost 1 drop QPM EACHEYE 08/01/24 18:00 08/09/24 17:36 1 DROP Morphine Sulfate 1 mg Q4HP PRN IV 08/02/24 13:15 08/06/24 22:01 1 MG Allopurinol 100 mg DAILY PO 08/04/24 10:00 08/09/24 10:06 100 MG Albuterol 2.5 mg Q6HPRN PRN NEB 08/05/24 10:15 08/07/24 16:24 2.5 MG Clopidogrel Bisulfate 75 mg DAILY PO 08/06/24 10:00 08/09/24 10:06 75 MG Amoxicillin/ Clavulanate Potassium 875 mg Q12HR PO 08/09/24 22:00 08/09/24 20:59 875 MG Furosemide 20 mg DAILY IV 08/10/24 10:00 Potassium Chloride 20 meq DAILY PO 08/10/24 10:00 Laboratory Laboratory Tests 08/09/24 04:58 Test 08/09/24 04:58 Range/Units Serum Glucose 101 74-106 mg/dL Microbiology Date/Time Source Procedure Growth Status 08/04/24 16:25 Nose MRSA Screen - Final Complete 08/03/24 06:35 Blood Blood Culture - Final NO GROWTH AFTER 5 DAYS OF INCUBATION. Complete Examination: GENERAL:Normal, HEENT:Normal, NECK:Normal, LUNGS:Normal, CVS:Normal, ABDOMEN:Abnormal (KELECHI drain), MSK:Normal, SKIN:Normal Problem List/Assessment/Plan Problems: (1) Status post laparoscopic cholecystectomy Assessment and Plan no new complaints abdomen soft, non distended, appropriately tender KELECHI drain Serous fluid wounds clean dry and intact labs and notes reviewed Plan continue IV antibiotics full liquid diet patient to ambulate ok to downgrade to telemetry Dr. Tamayo agrees with plan 08/07/2024 no new complaints abdomen soft, non distended, non tender KELECHI drain serious fluid 10cc wounds clean dry and intact per patient had a bowel movement , denies nausea or vomiting ok to downgrade to telemetry patient to ambulate 08/09/2024 @1500 no new complaints , feeling better, ambulating tolerating diet, denies nausea or vomiting abdomen soft, non distended, non tender KELECHI drain serous fluid 40cc Plan: ok to discharge per surgery point of view patient to follow up in clinic this Thursday shower ,pat dry wounds , wounds open to air Plan discussed with Plan discussed with: Patient, Other (Dr. Tamayo) Visit Coding Surgery Date of Service if different f: Aug 09, 2024 Billing Provider: JOSIAH TAMAYO MD Surgery Visit Codes: [id number] INP/OBS CARE(HIGH) KRYSTLE ALEXANDRA DNP Aug 09, 2024 22:36
[2024-08-10] VITALS (9 sets, daily range): BP systolic 105–120; BP diastolic 62–76; PULSE 60–93; RESP 17–19; TEMP 97.7–99.3; O2SAT 92–100
[2024-08-10] MEDS: POTASSIUM CHL 20 Meq TABLET PO SCH (09:33)
[2024-08-10] MEDS: FUROSEMIDE 20 MG/2 ML VIAL IV SCH (09:33)
--- NOTE | 2024-08-10 09:49 | DVHPN2 ---
Progress Note - Dictate Date Seen: Aug 10, 2024 Has the PT tested + for MRSA If YES, has PT been informed?: No Medical Necessity Reason Pt with a Central, PICC or Fol: No Subjective PT WITH CHEST PAIN PLEURITIC HTN CAD RIGHT PARIETAL CVA GOUT HYPERTENSIVE HEART DISEASE vital signs Vital Sign Date Time Temp Pulse Resp B/P (MAP) Pulse Ox O2 Delivery O2 Flow Rate FiO2 08/10/24 09:33 113/69 08/10/24 08:42 97.7 80 17 93 97.7 08/10/24 08:00 Room Air* 0 21 Total Intake and Output 08/09/24 08/09/24 08/10/24 15:00 23:00 07:00 Intake Total 100 ml 200 ml Output Total 325 ml 1450 ml 700 ml Balance -225 ml -1450 ml -500 ml medications Current Medications Medications Dose Ordered Sig/Darrius Route Start Time Stop Time Status Last Admin Dose Admin Sodium Chloride 10 ml Q8HR IV 08/01/24 22:00 08/10/24 05:35 10 ML Acetaminophen/ Hydrocodone Bitart 1 tab Q4HP PRN PO 08/01/24 17:00 08/09/24 20:58 1 TAB Ondansetron HCl 4 mg Q4HP PRN IV 08/01/24 17:00 08/10/24 05:35 4 MG Docusate Sodium 100 mg BIDPRN PRN PO 08/01/24 17:00 08/05/24 13:06 100 MG Acetaminophen 650 mg Q6HP PRN PO 08/01/24 17:00 Nitroglycerin 0.4 mg Q5MINP PRN SL 08/01/24 17:00 Morphine Sulfate 2 mg Q30M PRN IV 08/01/24 17:00 Latanoprost 1 drop QPM EACHEYE 08/01/24 18:00 08/09/24 17:36 1 DROP Morphine Sulfate 1 mg Q4HP PRN IV 08/02/24 13:15 08/06/24 22:01 1 MG Allopurinol 100 mg DAILY PO 08/04/24 10:00 08/10/24 09:33 100 MG Albuterol 2.5 mg Q6HPRN PRN NEB 08/05/24 10:15 08/07/24 16:24 2.5 MG Clopidogrel Bisulfate 75 mg DAILY PO 08/06/24 10:00 2/19/25 09:33 75 MG Amoxicillin/ Clavulanate Potassium 875 mg Q12HR PO 08/09/24 22:00 08/10/24 09:33 875 MG Furosemide 20 mg DAILY IV 08/10/24 10:00 08/10/24 09:33 20 MG Potassium Chloride 20 meq DAILY PO 08/10/24 10:00 08/10/24 09:33 20 MEQ objective HEENT: Pupils are reactive. Funduscopic exam shows no AV nicking, no exudates, no papilledema is noted. Tympanic membranes are negative. Sinuses are nontender. Nasal passages are intact. Oral mucosa moist. Posterior pharynx without any exudates. NECK: No cervical adenopathy. No supraclavicular adenopathy. Carotid pulses are 2+ symmetrical, normal upstroke and contour. No JVD appreciated. No nuchal rigidity. Thyroid is within normal limits. PULMONARY: Clear to auscultation in all lung ko. Tympanic to percussion. Negative for rhonchi or wheezing. Negative for egophony. CARDIOVASCULAR: Regular rate. There is a soft 2/6 systolic murmur along the left sternal border. PMI is not displaced. ABDOMEN: Soft, nontender. Normal bowel sounds. No epigastric tenderness, no CVA tenderness. Liver approximately 5 cm by percussion. Spleen tip nonpalpable. However, the patient does have some mild suprapubic tenderness because of the right inguinal hernia. Stool guaiac is negative. EXTREMITIES: 2+ pulses, no edema noted. laboratory and microbiology Laboratory Tests 08/09/24 04:58 Test 08/09/24 04:58 Range/Units Serum Glucose 101 74-106 mg/dL Problem List CHEST PAIN PLEURITIC HTN CAD RIGHT PARIETAL CVA GOUT HYPERTENSIVE HEART DISEASE Assessment/Plan CTA CHEST TROPONIN NEGATIVE CT SHOWS CHOLELITHIASIS POSITIVE BOOD CX START ABX MAY PROCEED WITH SURGERY ASA II STRESS CARDIOLITE NEGATIVE FOR ISCHEMIA MAY PROCEED WITH CHOLECYSTECTOMY S/P CHOLECYSTECTOMY POD #1 RESTART PLAVIX TOLERATING PLAVIX NO BLEEDING HOLD DC PT EXTREMELY NAUSEATED AND VOMITING KUB REGLAN Dietary Evaluation Review Comments: 1) Advance to cardiac diet when medically feasible 2) Encourage low-fat diet upon d/c 3) Refer to outpatient RD for weight management Expected Outcomes/Goals: 1) appetite and labs to improve 2) diet to advance 3) f/u in 2-3 days Plan discussed with: Patient RANDY VERMA MD Aug 10, 2024 09:49
[2024-08-10] MEDS: METOCLOPRAMIDE HCL 5MG/ml INJ 2ml VIAL IV ONE (10:24)
--- NOTE | 2024-08-10 11:23 | DVH ---
Date: 08/10/2024 10:14 AM Examination: XY KUB ABDOMEN SINGLE VIEW History: N/V S/P NILO Comparison: None TECHNIQUE: Frontal views of the abdomen was obtained. FINDINGS: Bowel gas pattern is unremarkable. Surgical clips project over the right upper quadrant. The lung bases are unremarkable. No acute osseous abnormality identified. IMPRESSION: Nonobstructive bowel gas pattern.
--- NOTE | 2024-08-10 12:03 | DVHPN2 ---
Progress Note Date Seen: Aug 10, 2024 Has the PT tested + for MRSA If YES, has PT been informed?: No Medical Necessity Reason Pt with a Central, PICC or Fol: No Subjective Patient reports: No new complaints Review of Systems: HEENT:Normal, CVS:Normal, RESPIRATORY:Normal, GI:Normal, :Normal, MSK:Normal, NEURO:Normal Objective vital signs Vital Sign Date Time Temp Pulse Resp B/P (MAP) Pulse Ox O2 Delivery O2 Flow Rate FiO2 08/10/24 09:33 113/69 08/10/24 08:42 97.7 80 17 93 97.7 08/10/24 08:00 Room Air* 0 21 Total Intake and Output 08/09/24 08/09/24 08/10/24 15:00 23:00 07:00 Intake Total 100 ml 200 ml Output Total 325 ml 1450 ml 700 ml Balance -225 ml -1450 ml -500 ml medications Current Medications Medications Dose Ordered Sig/Darrius Route Start Time Stop Time Status Last Admin Dose Admin Sodium Chloride 10 ml Q8HR IV 08/01/24 22:00 08/10/24 05:35 10 ML Acetaminophen/ Hydrocodone Bitart 1 tab Q4HP PRN PO 08/01/24 17:00 08/09/24 20:58 1 TAB Ondansetron HCl 4 mg Q4HP PRN IV 08/01/24 17:00 08/10/24 05:35 4 MG Docusate Sodium 100 mg BIDPRN PRN PO 08/01/24 17:00 08/05/24 13:06 100 MG Acetaminophen 650 mg Q6HP PRN PO 08/01/24 17:00 Nitroglycerin 0.4 mg Q5MINP PRN SL 08/01/24 17:00 Morphine Sulfate 2 mg Q30M PRN IV 08/01/24 17:00 Latanoprost 1 drop QPM EACHEYE 08/01/24 18:00 08/09/24 17:36 1 DROP Morphine Sulfate 1 mg Q4HP PRN IV 08/02/24 13:15 08/06/24 22:01 1 MG Allopurinol 100 mg DAILY PO 08/04/24 10:00 08/10/24 09:33 100 MG Clopidogrel Bisulfate 75 mg DAILY PO 08/06/24 10:00 08/10/24 09:33 75 MG Amoxicillin/ Clavulanate Potassium 875 mg Q12HR PO 08/09/24 22:00 08/10/24 09:33 875 MG Furosemide 20 mg DAILY IV 08/10/24 10:00 08/10/24 09:33 20 MG Potassium Chloride 20 meq DAILY PO 08/10/24 10:00 08/10/24 09:33 20 MEQ Metoclopramide HCl 10 mg Q8HR PRN IV 08/10/24 10:15 Examination: GENERAL:Normal, HEENT:Normal, NECK:Normal, LUNGS:Normal, CVS:Normal, ABDOMEN:Normal, MSK:Normal, SKIN:Normal, NEURO:Normal, :Normal laboratory and microbiology Laboratory Tests 08/09/24 04:58 Test 08/09/24 04:58 Range/Units Serum Glucose 101 74-106 mg/dL Microbiology Date/Time Source Procedure Growth Status 08/04/24 16:25 Nose MRSA Screen - Final Complete 08/03/24 06:35 Blood Blood Culture - Final NO GROWTH AFTER 5 DAYS OF INCUBATION. Complete Problem List/Assessment/Plan Problem List/Assessment/Plan #1 sepsis with gallstones with s aureus: keflex #2 cad s/p stents: plavix #3 htn #4 h/o cva #5 gout #6 acute renal failure ?vasomotor nephropathy: improved #7 acute on chronic diastolic heart failure: lasix iv #8 acute resp failure: wean oxygen advance care planning- full code-time spent 19 mins Plan discussed with: Patient, Spouse Dietary Evaluation Review Comments: 1) Advance to cardiac diet when medically feasible 2) Encourage low-fat diet upon d/c 3) Refer to outpatient RD for weight management Expected Outcomes/Goals: 1) appetite and labs to improve 2) diet to advance 3) f/u in 2-3 days Date of Service: Aug 10, 2024 Billing Provider: JANNA PALUMBO MD Common Visit Codes: [id number] INP/OBS CARE(HIGH) JANNA PALUMBO MD Aug 10, 2024 12:03
[2024-08-10] MEDS: CEPHALEXIN 250 MG CAP PO SCH (18:19)
[2024-08-11] VITALS (9 sets, daily range): BP systolic 115–129; BP diastolic 62–78; PULSE 63–102; RESP 18–20; TEMP 97.8–99.8; O2SAT 93–99
[2024-08-11] MEDS: CEPHALEXIN 250 MG CAP PO SCH (01:16)
[2024-08-11 06:34] LABS: Basophils # (auto) 0 10 ^3/uL (0-0.2); Basophils % (auto) 0.1 % (0.0-2.0); Eosinophils # (auto) 0.1 10 ^3/uL (0-0.8); Hematocrit 32.4 % (41.0-53.0); Hemoglobin 10.9 g/dL (13.5-17.5); Lymphocytes # (auto) 0.7 10 ^3/uL (0.4-5.4); Lymphocytes % (auto) 6.8 % (10.0-50.0); Mean Corpuscular Hemoglobin 32.4 pg (28.0-32.0); Mean Corpuscular Hgb Conc. 33.6 g/dL (32.0-36.0); Mean Corpuscular Volume 96.4 fL (80.0-100.0); Monocytes # (auto) 0.9 10 ^3/uL (0-1.3); Monocytes % (auto) 8.7 % (0.0-12.0); Neutrophils # (auto) 8.4 10 ^3/uL (1.6-8.6); Neutrophils % (auto) 83.4 % (37.0-80.0); Platelet Count (auto) 348 10^3/uL (140-450); Red Blood Cells 3.36 10^6/uL (4.5-5.90); Red Cell Distribution Width 14.1 % (11.8-14.3)
[2024-08-11 06:54] LABS: Alanine Aminotransferase 15 U/L (7-40); Alkaline Phosphatase 73 U/L (46-116); Anion Gap 9 (5-15); Blood Urea Nitrogen 16 mg/dL (9-23); Calcium 8.7 mg/dL (8.7-10.4); Carbon Dioxide 24 mmol/L (20-31); Chloride 103 mmol/L (98-107); Potassium 3.9 mmol/L (3.5-5.1)
[2024-08-11 06:55] LABS: Albumin 3.4 g/dL (3.2-4.8); Aspartate Aminotransferase 24 U/L (13-40); Bilirubin, Total 0.6 mg/dL (0.2-1.0); Total Protein 5.9 g/dL (5.7-8.2)
[2024-08-11 06:59] LABS: Glucose 111 mg/dL (74-106); Sodium 136 mmol/L (136-145)
[2024-08-11] MEDS: METOCLOPRAMIDE HCL 5MG/ml INJ 2ml VIAL IV PRN (09:23)
--- NOTE | 2024-08-11 12:22 | DVHPN2 ---
Progress Note - Dictate Date Seen: Aug 11, 2024 Has the PT tested + for MRSA If YES, has PT been informed?: No Medical Necessity Reason Pt with a Central, PICC or Fol: No Subjective PT WITH CHEST PAIN PLEURITIC HTN CAD RIGHT PARIETAL CVA GOUT HYPERTENSIVE HEART DISEASE vital signs Vital Sign Date Time Temp Pulse Resp B/P (MAP) Pulse Ox O2 Delivery O2 Flow Rate FiO2 08/11/24 09:23 120/68 08/11/24 09:00 99.8 69 18 93 99.8 08/11/24 08:00 Room Air* 0 21 Total Intake and Output 08/10/24 08/10/24 08/11/24 15:00 23:00 07:00 Intake Total 800 ml 450 ml Output Total 110 ml Balance 690 ml 450 ml medications Current Medications Medications Dose Ordered Sig/Darrius Route Start Time Stop Time Status Last Admin Dose Admin Sodium Chloride 10 ml Q8HR IV 08/01/24 22:00 08/11/24 05:42 10 ML Acetaminophen/ Hydrocodone Bitart 1 tab Q4HP PRN PO 08/01/24 17:00 08/11/24 08:52 1 TAB Ondansetron HCl 4 mg Q4HP PRN IV 08/01/24 17:00 08/10/24 05:35 4 MG Docusate Sodium 100 mg BIDPRN PRN PO 08/01/24 17:00 08/05/24 13:06 100 MG Acetaminophen 650 mg Q6HP PRN PO 08/01/24 17:00 Nitroglycerin 0.4 mg Q5MINP PRN SL 08/01/24 17:00 Latanoprost 1 drop QPM EACHEYE 08/01/24 18:00 08/10/24 18:46 1 DROP Morphine Sulfate 1 mg Q4HP PRN IV 08/02/24 13:15 08/11/24 05:42 1 MG Allopurinol 100 mg DAILY PO 08/04/24 10:00 08/11/24 09:21 100 MG Clopidogrel Bisulfate 75 mg DAILY PO 08/06/24 10:00 08/11/24 09:22 75 MG Furosemide 20 mg DAILY IV 08/10/24 10:00 08/11/24 09:23 20 MG Potassium Chloride 20 meq DAILY PO 08/10/24 10:00 08/11/24 09:22 20 MEQ Metoclopramide HCl 10 mg Q8HR PRN IV 08/10/24 10:15 08/11/24 09:23 10 MG Cephalexin 500 mg Q8H PO 08/11/24 02:00 08/11/24 09:22 500 MG objective HEENT: Pupils are reactive. Funduscopic exam shows no AV nicking, no exudates, no papilledema is noted. Tympanic membranes are negative. Sinuses are nontender. Nasal passages are intact. Oral mucosa moist. Posterior pharynx without any exudates. NECK: No cervical adenopathy. No supraclavicular adenopathy. Carotid pulses are 2+ symmetrical, normal upstroke and contour. No JVD appreciated. No nuchal rigidity. Thyroid is within normal limits. PULMONARY: Clear to auscultation in all lung ko. Tympanic to percussion. Negative for rhonchi or wheezing. Negative for egophony. CARDIOVASCULAR: Regular rate. There is a soft 2/6 systolic murmur along the left sternal border. PMI is not displaced. ABDOMEN: Soft, nontender. Normal bowel sounds. No epigastric tenderness, no CVA tenderness. Liver approximately 5 cm by percussion. Spleen tip nonpalpable. However, the patient does have some mild suprapubic tenderness because of the right inguinal hernia. Stool guaiac is negative. EXTREMITIES: 2+ pulses, no edema noted. laboratory and microbiology Laboratory Tests 08/11/24 05:56 Test 08/11/24 05:56 Range/Units Serum Glucose 111 H 74-106 mg/dL Problem List CHEST PAIN PLEURITIC HTN CAD RIGHT PARIETAL CVA GOUT HYPERTENSIVE HEART DISEASE Assessment/Plan CTA CHEST TROPONIN NEGATIVE CT SHOWS CHOLELITHIASIS POSITIVE BOOD CX START ABX MAY PROCEED WITH SURGERY ASA II STRESS CARDIOLITE NEGATIVE FOR ISCHEMIA MAY PROCEED WITH CHOLECYSTECTOMY S/P CHOLECYSTECTOMY POD #1 RESTART PLAVIX TOLERATING PLAVIX NO BLEEDING HOLD DC PT EXTREMELY NAUSEATED AND VOMITING KUB REGLAN KUB NEGATIVE MAY DC HOME Monitor Morphine Sulfate 2 mg, IV. Dietary Evaluation Review Comments: 1) Advance to cardiac diet when medically feasible 2) Encourage low-fat diet upon d/c 3) Refer to outpatient RD for weight management Expected Outcomes/Goals: 1) appetite and labs to improve 2) diet to advance 3) f/u in 2-3 days Plan discussed with: Patient, Spouse RANDY VERMA MD Aug 11, 2024 12:22
[2024-08-11] MEDS: LIDOCAINE 5% TOPICAL PATCH TOP ONE (15:47)
[2024-08-11] MEDS: LORazepam 2MG/ML-1ML VIAL IV ONE (15:49)
[2024-08-11] MEDS: FUROSEMIDE 20 MG TAB PO ONE (15:49)
[2024-08-11] MEDS: KETOROLAC TROMETH 30 MG/ML 1ML VIAL IV ONE (16:09)
[2024-08-12] VITALS (10 sets, daily range): BP systolic 113–136; BP diastolic 69–76; PULSE 69–98; RESP 16–20; TEMP 97.9–98.4; O2SAT 92–98
--- NOTE | 2024-08-12 05:44 | DVH ---
EXAM: XR Chest, 1 View CLINICAL INDICATION: chf TECHNIQUE: Frontal view of the chest. COMPARISON: XY CHEST PORTABLE on DOS: 08/05/24, XY CHEST PORTABLE on DOS: 08/04/24, XY CHEST PORTABLE on DOS: 08/01/24, XY CHEST PORTABLE on DOS: 04/19/24 FINDINGS: LUNGS AND PLEURAL SPACES: See below. HEART: Cardiomegaly with mild congestion. MEDIASTINUM: Unremarkable. Normal mediastinal contour. BONES/JOINTS: Unremarkable. No acute fracture. OTHER FINDINGS: . None. .. ... IMPRESSION: Cardiomegaly with mild congestion.
[2024-08-12] MEDS: POTASSIUM CHL 10 Meq TABLET PO SCH (09:45)
[2024-08-12] MEDS: LIDOCAINE 5% TOPICAL PATCH TOP SCH (09:45)
--- NOTE | 2024-08-12 14:03 | DVH ---
PROCEDURE: MRI LUMBAR SPINE WO CONTRAST INDICATION: back pain Exam Date: 08/12/2024 09:04 AM COMPARISON: None TECHNIQUE: MRI lumbar spine without intravenous contrast. FINDINGS: Grade 1 anterolisthesis L4 on L5 and L5 on S1. There are degenerative endplate changes including mo dic endplate changes with anterior and lateral osteophytes throughout the lumbar spine. The visualize d distal spinal cord and conus medullaris are within normal limits. The conus medullaris appears to terminate within normal limits. The visualized retroperitoneal and paraspinal soft tissues are unrem arkable. The following axial levels are detailed below: T12-L1: There is a mild circumferential disc bulge. No significant central canal or neuroforaminal s tenosis. L1-L2: There is a moderate circumferential disc bulge complicated by facet arthropathy associated w ith mild to moderate bilateral neuroforaminal stenosis. No significant central canal stenosis. L2-L3: There is a mild circumferential disc bulge. No significant central canal or neuroforaminal s tenosis. L3-L4: There is a moderate circumferential disc bulge complicated by facet arthropathy associated w ith mild to moderate left neuroforaminal stenosis. No significant central canal stenosis. L4-L5: There is a moderate circumferential disc bulge complicated by facet arthropathy associated w ith mild to moderate bilateral neuroforaminal stenosis. No significant central canal stenosis. L5-S1: Grade 1 anterolisthesis L5 on S1. No significant central canal or neural foraminal stenosis. IMPRESSION: 1. Multilevel degenerative disease. Grade 1 anterolisthesis L4 on L5 and L5 on S1. No significant sukhjinder tral canal stenosis. Neural foraminal stenosis as above. HS:Y
[2024-08-12] MEDS: MORPHINE SULFATE INJ 2 MG/ml SYRG IV PRN (14:22)
--- NOTE | 2024-08-12 14:31 | DVHPN2 ---
Progress Note - Dictate Date Seen: Aug 12, 2024 Has the PT tested + for MRSA If YES, has PT been informed?: No Medical Necessity Reason Pt with a Central, PICC or Fol: No Subjective PT WITH CHEST PAIN PLEURITIC HTN CAD RIGHT PARIETAL CVA GOUT HYPERTENSIVE HEART DISEASE vital signs Vital Sign Date Time Temp Pulse Resp B/P (MAP) Pulse Ox O2 Delivery O2 Flow Rate FiO2 08/12/24 14:22 98 20 129/72 08/12/24 13:00 98.0 93 98.0 08/12/24 07:40 Room Air* 0 21 Total Intake and Output 08/11/24 08/11/24 08/12/24 15:00 23:00 07:00 Intake Total 1150 ml 300 ml Output Total 552 ml Balance 1150 ml -252 ml medications Current Medications Medications Dose Ordered Sig/Darrius Route Start Time Stop Time Status Last Admin Dose Admin Sodium Chloride 10 ml Q8HR IV 08/01/24 22:00 08/12/24 12:32 10 ML Acetaminophen/ Hydrocodone Bitart 1 tab Q4HP PRN PO 08/01/24 17:00 08/12/24 10:04 1 TAB Ondansetron HCl 4 mg Q4HP PRN IV 08/01/24 17:00 08/10/24 05:35 4 MG Docusate Sodium 100 mg BIDPRN PRN PO 08/01/24 17:00 08/05/24 13:06 100 MG Acetaminophen 650 mg Q6HP PRN PO 08/01/24 17:00 Nitroglycerin 0.4 mg Q5MINP PRN SL 08/01/24 17:00 Latanoprost 1 drop QPM EACHEYE 08/01/24 18:00 08/11/24 18:24 1 DROP Allopurinol 100 mg DAILY PO 08/04/24 10:00 08/12/24 09:45 100 MG Clopidogrel Bisulfate 75 mg DAILY PO 08/06/24 10:00 08/12/24 09:45 75 MG Metoclopramide HCl 10 mg Q8HR PRN IV 08/10/24 10:15 08/11/24 09:23 10 MG Cephalexin 500 mg Q8H PO 08/11/24 02:00 08/12/24 09:44 500 MG Potassium Chloride 10 meq DAILY PO 08/12/24 10:00 08/12/24 09:45 10 MEQ Lidocaine 1 patch DAILY TOP 08/12/24 10:00 08/12/24 09:45 1 PATCH Temazepam 15 mg HSPRN PRN PO 08/11/24 14:45 Morphine Sulfate 2 mg Q4HP PRN IV 08/11/24 15:45 08/12/24 14:22 2 MG objective HEENT: Pupils are reactive. Funduscopic exam shows no AV nicking, no exudates, no papilledema is noted. Tympanic membranes are negative. Sinuses are nontender. Nasal passages are intact. Oral mucosa moist. Posterior pharynx without any exudates. NECK: No cervical adenopathy. No supraclavicular adenopathy. Carotid pulses are 2+ symmetrical, normal upstroke and contour. No JVD appreciated. No nuchal rigidity. Thyroid is within normal limits. PULMONARY: Clear to auscultation in all lung ko. Tympanic to percussion. Negative for rhonchi or wheezing. Negative for egophony. CARDIOVASCULAR: Regular rate. There is a soft 2/6 systolic murmur along the left sternal border. PMI is not displaced. ABDOMEN: Soft, nontender. Normal bowel sounds. No epigastric tenderness, no CVA tenderness. Liver approximately 5 cm by percussion. Spleen tip nonpalpable. However, the patient does have some mild suprapubic tenderness because of the right inguinal hernia. Stool guaiac is negative. EXTREMITIES: 2+ pulses, no edema noted. laboratory and microbiology Laboratory Tests 08/11/24 05:56 Test 08/11/24 05:56 Range/Units Serum Glucose 111 H 74-106 mg/dL Problem List CHEST PAIN PLEURITIC HTN CAD RIGHT PARIETAL CVA GOUT HYPERTENSIVE HEART DISEASE Assessment/Plan CTA CHEST TROPONIN NEGATIVE CT SHOWS CHOLELITHIASIS POSITIVE BOOD CX START ABX MAY PROCEED WITH SURGERY ASA II STRESS CARDIOLITE NEGATIVE FOR ISCHEMIA MAY PROCEED WITH CHOLECYSTECTOMY S/P CHOLECYSTECTOMY POD #1 RESTART PLAVIX TOLERATING PLAVIX NO BLEEDING HOLD DC PT EXTREMELY NAUSEATED AND VOMITING KUB REGLAN KUB NEGATIVE PLEURITIC CP COUGH START HHN Dietary Evaluation Review Comments: 1) Advance to cardiac diet when medically feasible 2) Encourage low-fat diet upon d/c 3) Refer to outpatient RD for weight management Expected Outcomes/Goals: 1) appetite and labs to improve 2) diet to advance 3) f/u in 2-3 days Plan discussed with: Patient RANDY VERMA MD Aug 12, 2024 14:31
--- NOTE | 2024-08-12 18:09 | DVHPN2 ---
Progress Note - Surgical Date Seen: Aug 12, 2024 Post op day Post op day: 8 Subjective Patient reports: Other (right side pain ) Review of Systems: HEENT:Normal, CVS:Normal, RESPIRATORY:Normal, GI:Normal, :Normal, MSK:Normal, NEURO:Normal Objective Vital signs Vital Sign Date Time Temp Pulse Resp B/P (MAP) Pulse Ox O2 Delivery O2 Flow Rate FiO2 08/12/24 17:00 98.4 98 20 136/76 (96) 98 98.4 08/12/24 16:36 0.0 08/12/24 07:40 Room Air* 21 Total Intake and Output 08/11/24 08/11/24 08/12/24 15:00 23:00 07:00 Intake Total 1150 ml 300 ml Output Total 552 ml Balance 1150 ml -252 ml Medications Current Medications Medications Dose Ordered Sig/Darrius Route Start Time Stop Time Status Last Admin Dose Admin Sodium Chloride 10 ml Q8HR IV 08/01/24 22:00 08/12/24 12:32 10 ML Acetaminophen/ Hydrocodone Bitart 1 tab Q4HP PRN PO 08/01/24 17:00 08/12/24 10:04 1 TAB Ondansetron HCl 4 mg Q4HP PRN IV 08/01/24 17:00 08/12/24 17:27 4 MG Docusate Sodium 100 mg BIDPRN PRN PO 08/01/24 17:00 08/05/24 13:06 100 MG Acetaminophen 650 mg Q6HP PRN PO 08/01/24 17:00 Nitroglycerin 0.4 mg Q5MINP PRN SL 08/01/24 17:00 Latanoprost 1 drop QPM EACHEYE 08/01/24 18:00 08/11/24 18:24 1 DROP Allopurinol 100 mg DAILY PO 08/04/24 10:00 08/12/24 09:45 100 MG Clopidogrel Bisulfate 75 mg DAILY PO 08/06/24 10:00 08/12/24 09:45 75 MG Metoclopramide HCl 10 mg Q8HR PRN IV 08/10/24 10:15 08/11/24 09:23 10 MG Cephalexin 500 mg Q8H PO 08/11/24 02:00 08/12/24 09:44 500 MG Potassium Chloride 10 meq DAILY PO 08/12/24 10:00 08/12/24 09:45 10 MEQ Lidocaine 1 patch DAILY TOP 08/12/24 10:00 08/12/24 09:45 1 PATCH Temazepam 15 mg HSPRN PRN PO 08/11/24 14:45 Morphine Sulfate 2 mg Q4HP PRN IV 08/11/24 15:45 08/12/24 14:22 2 MG Acetylcysteine 200 mg Q8HR NEB 08/12/24 22:00 Ipratropium [place] 0.5 mg Q8HR NEB 08/12/24 22:00 Laboratory Laboratory Tests 08/11/24 05:56 Test 08/11/24 05:56 Range/Units Serum Glucose 111 H 74-106 mg/dL Microbiology Date/Time Source Procedure Growth Status 08/04/24 16:25 Nose MRSA Screen - Final Complete 08/03/24 06:35 Blood Blood Culture - Final NO GROWTH AFTER 5 DAYS OF INCUBATION. Complete Examination: GENERAL:Normal, HEENT:Normal, NECK:Normal, LUNGS:Normal, CVS:Normal, ABDOMEN:Abnormal (PAULINO drain serous sanguinous 3cc ), MSK:Normal, SKIN:Normal, NEURO:Normal Labs and/or images reviewed: Labs reviewed by me, Image(s) reviewed by me Problem List/Assessment/Plan Problems: (1) Cholelithiasis and acute cholecystitis without obstruction (2) Right upper quadrant abdominal pain (3) Status post laparoscopic cholecystectomy Assessment and Plan no new complaints abdomen soft, non distended, appropriately tender PAULINO drain Serous fluid wounds clean dry and intact labs and notes reviewed Plan continue IV antibiotics full liquid diet patient to ambulate ok to downgrade to telemetry Dr. Tamayo agrees with plan 08/07/2024 no new complaints abdomen soft, non distended, non tender PAULINO drain serious fluid 10cc wounds clean dry and intact per patient had a bowel movement , denies nausea or vomiting ok to downgrade to telemetry patient to ambulate 08/09/2024 @1500 no new complaints , feeling better, ambulating tolerating diet, denies nausea or vomiting abdomen soft, non distended, non tender PAULINO drain serous fluid 40cc Plan: ok to discharge per surgery point of view patient to follow up in clinic this Thursday shower ,pat dry wounds , wounds open to air 08/12/2024 -patient is 7 days s/p laparoscopic cholecystectomy -complain of pain to Right upper quadrant , patient states MRI pending for his lumbar and does not think it is his back causing the pain the pain is more from the right upper quadrant area -non tender to palpation, patient has A paulino drain that was placed during the cholecystectomy, which might be causing irritation in the area wounds clean dry and intact Plan: remove PAULINO drain tomorrow if minimal drainage patient to ambulate continue current treatment patient may shower Discussed with Dr. Tamayo Plan discussed with Plan discussed with: Patient, Other (Dr. Tamayo ) Visit Coding Surgery Date of Service if different f: Aug 12, 2024 Billing Provider: JOSIAH TAMAYO MD Surgery Visit Codes: [id number] INP/OBS CARE(HIGH) KRYSTLE ALEXANDRA DNP Aug 12, 2024 18:09
--- NOTE | 2024-08-12 20:15 | DVHPN2 ---
Subjective in bed resting Reviewed: Care Plan, H&P, Labs, Medications, Previous Orders, Radiology Changes from previous H/P or p: No Changes General: Per HPI Eyes: No Pain, No Vision change, No Conjunctivae inflammation, No Eyelid inflammation, No Other, No Redness ENT: No Ear pain, No Ear discharge, No Nose pain, No Nose discharge, No Nose congestion, No Mouth pain, No Mouth swelling, No Throat pain, No Throat swelling, No Other Cardiovascular: Chest Pain, Palpitations; No Orthopnea, No Paroxysmal Noc. Dyspnea, No Edema, No Lt Headedness, No Other Respiratory: No Cough, No Dry; Shortness of breath, SOB with excertion; No Wheezing, No Hemoptysis; Pleuritic Pain; No Sputum, No Other Gastrointestinal: No Nausea, No Vomiting, No Abdominal Pain, No Diarrhea, No Constipation, No Melena, No Hematochezia, No Other Genitourinary: No Dysuria, No Frequency, No Incontinence, No Hematuria, No Retention, No Other Musculoskeletal: No other, No neck pain, No shoulder pain, No arm pain, No back pain, No hand pain, No leg pain, No foot pain Skin: No Rash, No Lesions, No Jaundice, No Bruising, No Other Objective Vitals Vital Signs Date Time Temp Pulse Resp B/P (MAP) Pulse Ox O2 Delivery O2 Flow Rate FiO2 08/12/24 17:00 98.4 98 20 136/76 (96) 98 98.4 08/12/24 16:36 0.0 08/12/24 07:40 Room Air* 21 Intake/Output Intake and Output 08/12/24 07:00 Intake Total 1450 ml Output Total 552 ml Balance 898 ml Intake Oral 1450 ml Output Urine Total 550 ml Drainage Total 2 ml # Voids 6 General Appearance: Alert, Oriented X3 Lungs: Clear to auscultation Cardiovascular: Regular rate Medications Current Medications Medications Dose Ordered Sig/Darrius Route Start Time Stop Time Status Last Admin Dose Admin Sodium Chloride 10 ml Q8HR IV 08/01/24 22:00 08/12/24 12:32 10 ML Acetaminophen/ Hydrocodone Bitart 1 tab Q4HP PRN PO 08/01/24 17:00 08/12/24 18:39 1 TAB Ondansetron HCl 4 mg Q4HP PRN IV 08/01/24 17:00 08/12/24 17:27 4 MG Docusate Sodium 100 mg BIDPRN PRN PO 08/01/24 17:00 08/05/24 13:06 100 MG Acetaminophen 650 mg Q6HP PRN PO 08/01/24 17:00 Nitroglycerin 0.4 mg Q5MINP PRN SL 08/01/24 17:00 Latanoprost 1 drop QPM EACHEYE 08/01/24 18:00 08/12/24 18:02 1 DROP Allopurinol 100 mg DAILY PO 08/04/24 10:00 08/12/24 09:45 100 MG Clopidogrel Bisulfate 75 mg DAILY PO 08/06/24 10:00 08/12/24 09:45 75 MG Metoclopramide HCl 10 mg Q8HR PRN IV 08/10/24 10:15 08/11/24 09:23 10 MG Cephalexin 500 mg Q8H PO 08/11/24 02:00 08/12/24 18:02 500 MG Potassium Chloride 10 meq DAILY PO 08/12/24 10:00 08/12/24 09:45 10 MEQ Lidocaine 1 patch DAILY TOP 08/12/24 10:00 08/12/24 09:45 1 PATCH Temazepam 15 mg HSPRN PRN PO 08/11/24 14:45 Morphine Sulfate 2 mg Q4HP PRN IV 08/11/24 15:45 08/12/24 14:22 2 MG Acetylcysteine 200 mg Q8HR NEB 08/12/24 22:00 Ipratropium [place] 0.5 mg Q8HR NEB 08/12/24 22:00 Laboratory Results Laboratory Tests 08/11/24 05:56 Urinalysis Test 08/02/24 10:23 Urine Color Light-orange (Yellow) Urine Clarity Clear (Clear) Urine pH 6.0 (5.0-9.0) Urine Specific [place] > 1.050 (1.001-1.035) Urine Protein 1+ (Negative) H Urine Ketones Negative (Negative) Urine Blood Negative /uL (Negative) Urine Nitrite Negative (Negative) Urine Bilirubin Negative (Negative) Urine Urobilinogen Normal mg/dL (Negative) Urine Leukocyte Esterase Negative /uL (Negative) Urine RBC 5 /hpf (0 - 3) Urine Microscopic WBC < 1 /HPF (0-3) Urine Squamous Epithelial Cells Few /hpf (<5) Urine Bacteria None seen /hpf (None Seen) Urine Glucose Normal mg/dL (Normal) Microbiology Microbiology Date/Time Source Procedure Growth Status 08/04/24 16:25 Nose MRSA Screen - Final Complete 08/03/24 06:35 Blood Blood Culture - Final NO GROWTH AFTER 5 DAYS OF INCUBATION. Complete Assessment/Plan Assessment/Plan #1 sepsis with gallstones with s aureus: keflex #2 cad s/p stents: plavix #3 htn #4 h/o cva #5 gout #6 acute renal failure ?vasomotor nephropathy: improved #7 acute on chronic diastolic heart failure: lasix iv #8 acute resp failure: wean oxygen advance care planning- full code-time spent 19 mins Plan discussed with: Patient, Spouse Plan discussed with: Patient Date of Service: Aug 12, 2024 Billing Provider: JALEEL HERCULES MD Common Visit Codes: [id number] INP/OBS CARE(HIGH) JALEEL HERCULES MD Aug 12, 2024 20:15
[2024-08-12] MEDS: ACETYLCYSTEINE 20%(200MG/ML) SOL 4ML NEB SCH (21:42)
[2024-08-12] MEDS: IPRATROPIUM BROM 0.5 MG/2.5ML INH SOL NEB SCH (21:42)
[2024-08-12] MEDS: TEMAZEPAM 15 MG CAP PO PRN (21:52)
[2024-08-13] VITALS (14 sets, daily range): BP systolic 105–147; BP diastolic 66–72; PULSE 69–114; RESP 16–23; TEMP 98–100.5; O2SAT 90–97
--- NOTE | 2024-08-13 09:57 | DVHPN2 ---
Progress Note - Surgical Date Seen: Aug 13, 2024 Post op day Post op day: 9 Subjective Patient reports: No new complaints Review of Systems: HEENT:Normal, CVS:Normal, RESPIRATORY:Normal, GI:Normal, :Normal, MSK:Normal, NEURO:Normal Objective Vital signs Vital Sign Date Time Temp Pulse Resp B/P (MAP) Pulse Ox O2 Delivery O2 Flow Rate FiO2 08/13/24 09:00 98.8 94 21 114/66 (82) 94 98.8 08/13/24 05:58 Nasal Cannula* 2 28 Total Intake and Output 08/12/24 08/12/24 08/13/24 15:00 23:00 07:00 Intake Total 1320 ml 360 ml Output Total 700 ml 751 ml Balance 620 ml -391 ml Medications Current Medications Medications Dose Ordered Sig/Darrius Route Start Time Stop Time Status Last Admin Dose Admin Sodium Chloride 10 ml Q8HR IV 08/01/24 22:00 08/13/24 05:26 10 ML Acetaminophen/ Hydrocodone Bitart 1 tab Q4HP PRN PO 08/01/24 17:00 08/13/24 02:55 1 TAB Ondansetron HCl 4 mg Q4HP PRN IV 08/01/24 17:00 08/12/24 17:27 4 MG Docusate Sodium 100 mg BIDPRN PRN PO 08/01/24 17:00 08/05/24 13:06 100 MG Acetaminophen 650 mg Q6HP PRN PO 08/01/24 17:00 Nitroglycerin 0.4 mg Q5MINP PRN SL 08/01/24 17:00 Latanoprost 1 drop QPM EACHEYE 08/01/24 18:00 08/12/24 18:02 1 DROP Allopurinol 100 mg DAILY PO 08/04/24 10:00 08/12/24 09:45 100 MG Clopidogrel Bisulfate 75 mg DAILY PO 08/06/24 10:00 08/12/24 09:45 75 MG Metoclopramide HCl 10 mg Q8HR PRN IV 08/10/24 10:15 08/11/24 09:23 10 MG Cephalexin 500 mg Q8H PO 08/11/24 02:00 08/13/24 02:38 500 MG Potassium Chloride 10 meq DAILY PO 08/12/24 10:00 08/12/24 09:45 10 MEQ Lidocaine 1 patch DAILY TOP 08/12/24 10:00 08/12/24 09:45 1 PATCH Temazepam 15 mg HSPRN PRN PO 08/11/24 14:45 08/12/24 21:52 15 MG Morphine Sulfate 2 mg Q4HP PRN IV 08/11/24 15:45 08/12/24 22:00 2 MG Acetylcysteine 200 mg Q8HR NEB 08/12/24 22:00 08/13/24 05:58 200 MG Ipratropium [place] 0.5 mg Q8HR NEB 08/12/24 22:00 08/13/24 05:57 0.5 MG Laboratory Laboratory Tests 08/11/24 05:56 Test 08/11/24 05:56 Range/Units Serum Glucose 111 H 74-106 mg/dL Microbiology Date/Time Source Procedure Growth Status 08/04/24 16:25 Nose MRSA Screen - Final Complete 08/03/24 06:35 Blood Blood Culture - Final NO GROWTH AFTER 5 DAYS OF INCUBATION. Complete Examination: GENERAL:Normal, HEENT:Normal, NECK:Normal, LUNGS:Normal, CVS:Normal, ABDOMEN:Normal, MSK:Normal, SKIN:Normal, NEURO:Normal Problem List/Assessment/Plan Problems: (1) Status post laparoscopic cholecystectomy (2) Constipated (3) Cough (4) Cholelithiasis and acute cholecystitis without obstruction Assessment and Plan no new complaints abdomen soft, non distended, appropriately tender PAULINO drain Serous fluid wounds clean dry and intact labs and notes reviewed Plan continue IV antibiotics full liquid diet patient to ambulate ok to downgrade to telemetry Dr. Tamayo agrees with plan 08/07/2024 no new complaints abdomen soft, non distended, non tender PAULINO drain serious fluid 10cc wounds clean dry and intact per patient had a bowel movement , denies nausea or vomiting ok to downgrade to telemetry patient to ambulate 08/09/2024 @1500 no new complaints , feeling better, ambulating tolerating diet, denies nausea or vomiting abdomen soft, non distended, non tender PAULINO drain serous fluid 40cc Plan: ok to discharge per surgery point of view patient to follow up in clinic this Thursday shower ,pat dry wounds , wounds open to air 08/12/2024 -patient is 7 days s/p laparoscopic cholecystectomy -complain of pain to Right upper quadrant , patient states MRI pending for his lumbar and does not think it is his back causing the pain the pain is more from the right upper quadrant area -non tender to palpation, patient has A paulino drain that was placed during the cholecystectomy, which might be causing irritation in the area wounds clean dry and intact Plan: remove PAULINO drain tomorrow if minimal drainage patient to ambulate continue current treatment patient may shower Discussed with Dr. Tamayo 08/13/2024 s/p laparoscopic cholecystectomy, wounds clean dry and intact,PAULINO drain minimal fluid, abdomen soft , non distended, pain from right side chest abdomen per patient from coughing and has a lot of phlegm complaint of no bowel movement in 48 hours, patient passing flatus Plan: PAULINO drain removed cover PAULINO drain wound next 24 hours than open to air may shower and wet wounds continue breathing treatments ambulate hallways decrease use of narcotics use incentive spirometer every hour increase fluid intake Plan discussed with Plan discussed with: Patient, Other (Dr. Tamayo) Visit Coding Surgery Date of Service if different f: Aug 13, 2024 Billing Provider: JOSIAH TAMAYO MD Surgery Visit Codes: [id number] INP/OBS CARE(HIGH) KRYSTLE ALEXANDRA [facility] Aug 13, 2024 09:57
--- NOTE | 2024-08-13 18:11 | DVHPN2 ---
Subjective in bed resting Reviewed: Care Plan, H&P, Labs, Medications, Previous Orders, Radiology Changes from previous H/P or p: No Changes General: Per HPI Eyes: No Pain, No Vision change, No Conjunctivae inflammation, No Eyelid inflammation, No Other, No Redness ENT: No Ear pain, No Ear discharge, No Nose pain, No Nose discharge, No Nose congestion, No Mouth pain, No Mouth swelling, No Throat pain, No Throat swelling, No Other Cardiovascular: Chest Pain, Palpitations; No Orthopnea, No Paroxysmal Noc. Dyspnea, No Edema, No Lt Headedness, No Other Respiratory: No Cough, No Dry; Shortness of breath, SOB with excertion; No Wheezing, No Hemoptysis; Pleuritic Pain; No Sputum, No Other Gastrointestinal: No Nausea, No Vomiting, No Abdominal Pain, No Diarrhea, No Constipation, No Melena, No Hematochezia, No Other Genitourinary: No Dysuria, No Frequency, No Incontinence, No Hematuria, No Retention, No Other Musculoskeletal: No other, No neck pain, No shoulder pain, No arm pain, No back pain, No hand pain, No leg pain, No foot pain Skin: No Rash, No Lesions, No Jaundice, No Bruising, No Other Objective Vitals Vital Signs Date Time Temp Pulse Resp B/P (MAP) Pulse Ox O2 Delivery O2 Flow Rate FiO2 08/13/24 17:00 99.8 98 23 147/66 (93) 91 99.8 08/13/24 15:01 Nasal Cannula* 3 32 Intake/Output Intake and Output 08/13/24 07:00 Intake Total 1680 ml Output Total 1451 ml Balance 229 ml Intake Oral 360 ml Tube Feeding 1320 ml Output Urine Total 1450 ml Drainage Total 1 ml General Appearance: Alert, Oriented X3 Lungs: Clear to auscultation Cardiovascular: Regular rate Medications Current Medications Medications Dose Ordered Sig/Darrius Route Start Time Stop Time Status Last Admin Dose Admin Sodium Chloride 10 ml Q8HR IV 08/01/24 22:00 08/13/24 13:17 10 ML Ondansetron HCl 4 mg Q4HP PRN IV 08/01/24 17:00 08/12/24 17:27 4 MG Docusate Sodium 100 mg BIDPRN PRN PO 08/01/24 17:00 08/05/24 13:06 100 MG Acetaminophen 650 mg Q6HP PRN PO 08/01/24 17:00 Nitroglycerin 0.4 mg Q5MINP PRN SL 08/01/24 17:00 Latanoprost 1 drop QPM EACHEYE 08/01/24 18:00 08/12/24 18:02 1 DROP Allopurinol 100 mg DAILY PO 08/04/24 10:00 08/13/24 10:38 100 MG Clopidogrel Bisulfate 75 mg DAILY PO 08/06/24 10:00 08/13/24 10:37 75 MG Metoclopramide HCl 10 mg Q8HR PRN IV 08/10/24 10:15 08/11/24 09:23 10 MG Cephalexin 500 mg Q8H PO 08/11/24 02:00 08/13/24 10:36 500 MG Potassium Chloride 10 meq DAILY PO 08/12/24 10:00 08/13/24 10:37 10 MEQ Lidocaine 1 patch DAILY TOP 08/12/24 10:00 08/13/24 10:38 1 PATCH Temazepam 15 mg HSPRN PRN PO 08/11/24 14:45 08/12/24 21:52 15 MG Morphine Sulfate 2 mg Q4HP PRN IV 08/11/24 15:45 08/13/24 12:56 2 MG Acetylcysteine 200 mg Q8HR NEB 08/12/24 22:00 08/13/24 15:01 200 MG Ipratropium [place] 0.5 mg Q8HR NEB 08/12/24 22:00 08/13/24 15:00 0.5 MG Laboratory Results Laboratory Tests 08/11/24 05:56 Urinalysis Test 08/02/24 10:23 Urine Color Light-orange (Yellow) Urine Clarity Clear (Clear) Urine pH 6.0 (5.0-9.0) Urine Specific [place] > 1.050 (1.001-1.035) Urine Protein 1+ (Negative) H Urine Ketones Negative (Negative) Urine Blood Negative /uL (Negative) Urine Nitrite Negative (Negative) Urine Bilirubin Negative (Negative) Urine Urobilinogen Normal mg/dL (Negative) Urine Leukocyte Esterase Negative /uL (Negative) Urine RBC 5 /hpf (0 - 3) Urine Microscopic WBC < 1 /HPF (0-3) Urine Squamous Epithelial Cells Few /hpf (<5) Urine Bacteria None seen /hpf (None Seen) Urine Glucose Normal mg/dL (Normal) Microbiology Microbiology Date/Time Source Procedure Growth Status 08/04/24 16:25 Nose MRSA Screen - Final Complete 08/03/24 06:35 Blood Blood Culture - Final NO GROWTH AFTER 5 DAYS OF INCUBATION. Complete Assessment/Plan Assessment/Plan #1 sepsis with gallstones with s aureus: keflex #2 cad s/p stents: plavix #3 htn #4 h/o cva #5 gout #6 acute renal failure ?vasomotor nephropathy: improved #7 acute on chronic diastolic heart failure: lasix iv #8 acute resp failure: wean oxygen advance care planning- full code-time spent 19 mins Plan discussed with: Patient, Spouse Plan discussed with: Patient Date of Service: Aug 13, 2024 Billing Provider: JALEEL HERCULES MD Common Visit Codes: [id number] INP/OBS CARE(HIGH) JALEEL HERCULES MD Aug 13, 2024 18:11
[2024-08-13] MEDS: ACETAMINOPHEN 325 MG TAB PO PRN (21:19)
[2024-08-14] VITALS (15 sets, daily range): BP systolic 110–135; BP diastolic 60–92; PULSE 63–103; RESP 16–20; TEMP 97.8–100.1; O2SAT 91–98
--- NOTE | 2024-08-14 14:37 | DVHPN2 ---
Subjective in bed resting Reviewed: Care Plan, H&P, Labs, Medications, Previous Orders, Radiology Changes from previous H/P or p: No Changes General: Per HPI Eyes: No Pain, No Vision change, No Conjunctivae inflammation, No Eyelid inflammation, No Other, No Redness ENT: No Ear pain, No Ear discharge, No Nose pain, No Nose discharge, No Nose congestion, No Mouth pain, No Mouth swelling, No Throat pain, No Throat swelling, No Other Cardiovascular: Chest Pain, Palpitations; No Orthopnea, No Paroxysmal Noc. Dyspnea, No Edema, No Lt Headedness, No Other Respiratory: No Cough, No Dry; Shortness of breath, SOB with excertion; No Wheezing, No Hemoptysis; Pleuritic Pain; No Sputum, No Other Gastrointestinal: No Nausea, No Vomiting, No Abdominal Pain, No Diarrhea, No Constipation, No Melena, No Hematochezia, No Other Genitourinary: No Dysuria, No Frequency, No Incontinence, No Hematuria, No Retention, No Other Musculoskeletal: No other, No neck pain, No shoulder pain, No arm pain, No back pain, No hand pain, No leg pain, No foot pain Skin: No Rash, No Lesions, No Jaundice, No Bruising, No Other Objective Vitals Vital Signs Date Time Temp Pulse Resp B/P (MAP) Pulse Ox O2 Delivery O2 Flow Rate FiO2 08/14/24 13:11 103 18 93 08/14/24 13:05 Nasal Cannula 3.0 08/14/24 13:05 32 08/14/24 13:00 98.4 135/76 (95) 98.4 Intake/Output Intake and Output 08/14/24 07:00 Intake Total 684 ml Output Total 1200 ml Balance -516 ml Intake Oral 684 ml Output Urine Total 1200 ml # Bowel Movements 1 General Appearance: Alert, Oriented X3 Lungs: Clear to auscultation Cardiovascular: Regular rate Medications Current Medications Medications Dose Ordered Sig/Darrius Route Start Time Stop Time Status Last Admin Dose Admin Sodium Chloride 10 ml Q8HR IV 08/01/24 22:00 08/14/24 14:12 10 ML Ondansetron HCl 4 mg Q4HP PRN IV 08/01/24 17:00 08/12/24 17:27 4 MG Docusate Sodium 100 mg BIDPRN PRN PO 08/01/24 17:00 08/05/24 13:06 100 MG Acetaminophen 650 mg Q6HP PRN PO 08/01/24 17:00 08/13/24 21:19 650 MG Nitroglycerin 0.4 mg Q5MINP PRN SL 08/01/24 17:00 Latanoprost 1 drop QPM EACHEYE 08/01/24 18:00 08/13/24 18:26 1 DROP Allopurinol 100 mg DAILY PO 08/04/24 10:00 08/14/24 09:10 100 MG Clopidogrel Bisulfate 75 mg DAILY PO 08/06/24 10:00 08/14/24 09:10 75 MG Metoclopramide HCl 10 mg Q8HR PRN IV 08/10/24 10:15 08/11/24 09:23 10 MG Cephalexin 500 mg Q8H PO 08/11/24 02:00 08/14/24 09:09 500 MG Potassium Chloride 10 meq DAILY PO 08/12/24 10:00 08/14/24 09:09 10 MEQ Lidocaine 1 patch DAILY TOP 08/12/24 10:00 08/14/24 09:12 1 PATCH Temazepam 15 mg HSPRN PRN PO 08/11/24 14:45 08/13/24 23:15 15 MG Morphine Sulfate 2 mg Q4HP PRN IV 08/11/24 15:45 08/14/24 09:11 2 MG Acetylcysteine 200 mg Q8HR NEB 08/12/24 22:00 08/14/24 13:05 200 MG Ipratropium [place] 0.5 mg Q8HR NEB 08/12/24 22:00 08/14/24 13:05 0.5 MG Laboratory Results Laboratory Tests 08/11/24 05:56 Urinalysis Test 08/02/24 10:23 Urine Color Light-orange (Yellow) Urine Clarity Clear (Clear) Urine pH 6.0 (5.0-9.0) Urine Specific [place] > 1.050 (1.001-1.035) Urine Protein 1+ (Negative) H Urine Ketones Negative (Negative) Urine Blood Negative /uL (Negative) Urine Nitrite Negative (Negative) Urine Bilirubin Negative (Negative) Urine Urobilinogen Normal mg/dL (Negative) Urine Leukocyte Esterase Negative /uL (Negative) Urine RBC 5 /hpf (0 - 3) Urine Microscopic WBC < 1 /HPF (0-3) Urine Squamous Epithelial Cells Few /hpf (<5) Urine Bacteria None seen /hpf (None Seen) Urine Glucose Normal mg/dL (Normal) Microbiology Microbiology Date/Time Source Procedure Growth Status 08/04/24 16:25 Nose MRSA Screen - Final Complete 08/03/24 06:35 Blood Blood Culture - Final NO GROWTH AFTER 5 DAYS OF INCUBATION. Complete Assessment/Plan Assessment/Plan #1 sepsis with gallstones with s aureus: keflex #2 cad s/p stents: plavix #3 htn #4 h/o cva #5 gout #6 acute renal failure ?vasomotor nephropathy: improved #7 acute on chronic diastolic heart failure: lasix iv #8 acute resp failure: wean oxygen advance care planning- full code-time spent 19 mins Plan discussed with: Patient, Spouse Plan discussed with: Patient Date of Service: Aug 14, 2024 Billing Provider: JALEEL HERCULES MD Common Visit Codes: [id number] INP/OBS CARE(HIGH) JALEEL HERCULES MD Aug 14, 2024 14:37
[2024-08-15] VITALS (16 sets, daily range): BP systolic 110–124; BP diastolic 62–73; PULSE 68–117; RESP 16–20; TEMP 98.2–99.4; O2SAT 92–96
--- NOTE | 2024-08-15 12:28 | DVHPN2 ---
Progress Note Date Seen: Aug 15, 2024 Has the PT tested + for MRSA If YES, has PT been informed?: No Medical Necessity Reason Pt with a Central, PICC or Fol: No Subjective Patient reports: No new complaints Review of Systems: HEENT:Normal, CVS:Normal, RESPIRATORY:Normal, GI:Normal, :Normal, MSK:Normal, NEURO:Normal Objective vital signs Vital Sign Date Time Temp Pulse Resp B/P (MAP) Pulse Ox O2 Delivery O2 Flow Rate FiO2 08/15/24 09:10 72 16 110/62 08/15/24 08:35 98.7 92 98.7 08/15/24 08:00 Nasal Cannula* 3 32 Total Intake and Output 08/14/24 08/14/24 08/15/24 15:00 23:00 07:00 Intake Total 400 ml 900 ml 200 ml Output Total 190 ml 300 ml Balance 400 ml 710 ml -100 ml medications Current Medications Medications Dose Ordered Sig/Darrius Route Start Time Stop Time Status Last Admin Dose Admin Sodium Chloride 10 ml Q8HR IV 08/01/24 22:00 08/15/24 06:33 10 ML Ondansetron HCl 4 mg Q4HP PRN IV 08/01/24 17:00 08/12/24 17:27 4 MG Docusate Sodium 100 mg BIDPRN PRN PO 08/01/24 17:00 08/05/24 13:06 100 MG Acetaminophen 650 mg Q6HP PRN PO 08/01/24 17:00 08/13/24 21:19 650 MG Nitroglycerin 0.4 mg Q5MINP PRN SL 08/01/24 17:00 Latanoprost 1 drop QPM EACHEYE 08/01/24 18:00 08/14/24 17:33 1 DROP Allopurinol 100 mg DAILY PO 08/04/24 10:00 08/15/24 08:53 100 MG Clopidogrel Bisulfate 75 mg DAILY PO 08/06/24 10:00 08/15/24 08:52 75 MG Metoclopramide HCl 10 mg Q8HR PRN IV 08/10/24 10:15 08/11/24 09:23 10 MG Cephalexin 500 mg Q8H PO 08/11/24 02:00 08/15/24 08:53 500 MG Potassium Chloride 10 meq DAILY PO 08/12/24 10:00 08/14/24 09:09 10 MEQ Lidocaine 1 patch DAILY TOP 08/12/24 10:00 08/15/24 08:53 1 PATCH Temazepam 15 mg HSPRN PRN PO 08/11/24 14:45 08/14/24 23:56 15 MG Morphine Sulfate 2 mg Q4HP PRN IV 08/11/24 15:45 08/15/24 09:10 2 MG Acetylcysteine 200 mg Q8HR NEB 08/12/24 22:00 08/15/24 06:15 200 MG Ipratropium [place] 0.5 mg Q8HR NEB 08/12/24 22:00 08/15/24 06:15 0.5 MG Examination: GENERAL:Normal, HEENT:Normal, NECK:Normal, LUNGS:Normal, LUNGS:Abnormal (on oxygen), CVS:Normal, ABDOMEN:Normal, MSK:Normal, SKIN:Normal, NEURO:Normal, :Normal laboratory and microbiology Laboratory Tests 08/11/24 05:56 Test 08/11/24 05:56 Range/Units Serum Glucose 111 H 74-106 mg/dL Microbiology Date/Time Source Procedure Growth Status 08/04/24 16:25 Nose MRSA Screen - Final Complete 08/03/24 06:35 Blood Blood Culture - Final NO GROWTH AFTER 5 DAYS OF INCUBATION. Complete Problem List/Assessment/Plan Problem List/Assessment/Plan #1 sepsis with gallstones with s aureus: doxy #2 cad s/p stents: plavix #3 htn #4 h/o cva #5 gout #6 acute renal failure ?vasomotor nephropathy: improved #7 acute on chronic diastolic heart failure: lasix iv #8 acute resp failure: wean oxygen advance care planning- full code-time spent 19 mins Plan discussed with: Patient, Spouse Dietary Evaluation Review Comments: 1) Advance to cardiac diet when medically feasible 2) Encourage low-fat diet upon d/c 3) Refer to outpatient RD for weight management Expected Outcomes/Goals: 1) appetite and labs to improve 2) diet to advance 3) f/u in 2-3 days Date of Service: Aug 15, 2024 Billing Provider: JANNA PALUMBO MD Common Visit Codes: [id number] INP/OBS CARE(HIGH) JANNA PALUMBO MD Aug 15, 2024 12:28
[2024-08-15] MEDS: DOXYCYCLINE 100MG/100ML 100 ML IV SCH (12:30)
--- NOTE | 2024-08-15 12:45 | DVHPN2 ---
Progress Note - Dictate Date Seen: Aug 14, 2024 Has the PT tested + for MRSA If YES, has PT been informed?: No Medical Necessity Reason Pt with a Central, PICC or Fol: No Subjective PT WITH CHEST PAIN PLEURITIC HTN CAD RIGHT PARIETAL CVA GOUT HYPERTENSIVE HEART DISEASE vital signs Vital Sign Date Time Temp Pulse Resp B/P (MAP) Pulse Ox O2 Delivery O2 Flow Rate FiO2 08/15/24 09:10 72 16 110/62 08/15/24 08:35 98.7 92 98.7 08/15/24 08:00 Nasal Cannula* 3 32 Total Intake and Output 08/14/24 08/14/24 08/15/24 15:00 23:00 07:00 Intake Total 400 ml 900 ml 200 ml Output Total 190 ml 300 ml Balance 400 ml 710 ml -100 ml medications Current Medications Medications Dose Ordered Sig/Darrius Route Start Time Stop Time Status Last Admin Dose Admin Sodium Chloride 10 ml Q8HR IV 08/01/24 22:00 08/15/24 06:33 10 ML Ondansetron HCl 4 mg Q4HP PRN IV 08/01/24 17:00 08/12/24 17:27 4 MG Docusate Sodium 100 mg BIDPRN PRN PO 08/01/24 17:00 08/05/24 13:06 100 MG Acetaminophen 650 mg Q6HP PRN PO 08/01/24 17:00 08/13/24 21:19 650 MG Nitroglycerin 0.4 mg Q5MINP PRN SL 08/01/24 17:00 Latanoprost 1 drop QPM EACHEYE 08/01/24 18:00 08/14/24 17:33 1 DROP Allopurinol 100 mg DAILY PO 08/04/24 10:00 08/15/24 08:53 100 MG Clopidogrel Bisulfate 75 mg DAILY PO 08/06/24 10:00 08/15/24 08:52 75 MG Metoclopramide HCl 10 mg Q8HR PRN IV 08/10/24 10:15 08/11/24 09:23 10 MG Potassium Chloride 10 meq DAILY PO 08/12/24 10:00 08/14/24 09:09 10 MEQ Lidocaine 1 patch DAILY TOP 08/12/24 10:00 08/15/24 08:53 1 PATCH Temazepam 15 mg HSPRN PRN PO 08/11/24 14:45 08/14/24 23:56 15 MG Morphine Sulfate 2 mg Q4HP PRN IV 08/11/24 15:45 08/15/24 09:10 2 MG Acetylcysteine 200 mg Q8HR NEB 08/12/24 22:00 08/15/24 06:15 200 MG Ipratropium [place] 0.5 mg Q8HR NEB 08/12/24 22:00 08/15/24 06:15 0.5 MG Doxycycline Hyclate 100 ml @ 50 mls/hr Q12H IV 08/15/24 12:30 UNV Furosemide 20 mg DAILY PO 08/16/24 10:00 UNV Apixaban 2.5 mg BID PO 08/15/24 22:00 UNV objective HEENT: Pupils are reactive. Funduscopic exam shows no AV nicking, no exudates, no papilledema is noted. Tympanic membranes are negative. Sinuses are nontender. Nasal passages are intact. Oral mucosa moist. Posterior pharynx without any exudates. NECK: No cervical adenopathy. No supraclavicular adenopathy. Carotid pulses are 2+ symmetrical, normal upstroke and contour. No JVD appreciated. No nuchal rigidity. Thyroid is within normal limits. PULMONARY: Clear to auscultation in all lung ko. Tympanic to percussion. Negative for rhonchi or wheezing. Negative for egophony. CARDIOVASCULAR: Regular rate. There is a soft 2/6 systolic murmur along the left sternal border. PMI is not displaced. ABDOMEN: Soft, nontender. Normal bowel sounds. No epigastric tenderness, no CVA tenderness. Liver approximately 5 cm by percussion. Spleen tip nonpalpable. However, the patient does have some mild suprapubic tenderness because of the right inguinal hernia. Stool guaiac is negative. EXTREMITIES: 2+ pulses, no edema noted. laboratory and microbiology Laboratory Tests 08/11/24 05:56 Test 08/11/24 05:56 Range/Units Serum Glucose 111 H 74-106 mg/dL Problem List CHEST PAIN PLEURITIC HTN CAD RIGHT PARIETAL CVA GOUT HYPERTENSIVE HEART DISEASE Assessment/Plan CTA CHEST TROPONIN NEGATIVE CT SHOWS CHOLELITHIASIS POSITIVE BOOD CX START ABX MAY PROCEED WITH SURGERY ASA II STRESS CARDIOLITE NEGATIVE FOR ISCHEMIA MAY PROCEED WITH CHOLECYSTECTOMY S/P CHOLECYSTECTOMY POD #1 RESTART PLAVIX TOLERATING PLAVIX NO BLEEDING HOLD DC PT EXTREMELY NAUSEATED AND VOMITING KUB REGLAN KUB NEGATIVE PLEURITIC CP COUGH START HHN Dietary Evaluation Review Comments: 1) Advance to cardiac diet when medically feasible 2) Encourage low-fat diet upon d/c 3) Refer to outpatient RD for weight management Expected Outcomes/Goals: 1) appetite and labs to improve 2) diet to advance 3) f/u in 2-3 days Plan discussed with: Patient RANDY VERMA MD Aug 15, 2024 12:45
--- NOTE | 2024-08-15 14:41 | DVH ---
CHEST RADIOGRAPH Indication: chf Technique: Single frontal view of the chest was obtained Comparison: XY CHEST PORTABLE on DOS: 08/12/24, XY CHEST PORTABLE on DOS: 08/05/24, XY CHEST PORTABLE o n DOS: 08/04/24, XY CHEST PORTABLE on DOS: 08/01/24, XY CHEST PORTABLE on DOS: 04/19/24 FINDINGS: Lines and Tubes: None Lungs: No focal consolidation. Pleura: Moderate bilateral effusions No pneumothorax. Cardiomediastinal contours: Cardiomegaly Bones: No acute osseous abnormality. IMPRESSION: Cardiomeagly with CHF. Modreate bilateral effusions
[2024-08-15] MEDS: APIXABAN 2.5 MG TAB PO ONE (15:01)
[2024-08-15] MEDS: FUROSEMIDE 20 MG TAB PO ONE (15:02)
[2024-08-15] MEDS: APIXABAN 2.5 MG TAB PO SCH (21:07)
[2024-08-16] VITALS (15 sets, daily range): BP systolic 104–134; BP diastolic 63–74; PULSE 73–100; RESP 16–20; TEMP 97.9–99.1; O2SAT 92–97
[2024-08-16 07:37] LABS: Basophils # (auto) 0 10 ^3/uL (0-0.2); Basophils % (auto) 0.6 % (0.0-2.0); Eosinophils # (auto) 0.1 10 ^3/uL (0-0.8); Eosinophils % (auto) 1.4 % (0.0-7.0); Hematocrit 28.1 % (41.0-53.0); Hemoglobin 9.7 g/dL (13.5-17.5); Lymphocytes # (auto) 0.7 10 ^3/uL (0.4-5.4); Lymphocytes % (auto) 12.6 % (10.0-50.0); Mean Corpuscular Hemoglobin 32.8 pg (28.0-32.0); Mean Corpuscular Hgb Conc. 34.5 g/dL (32.0-36.0); Mean Corpuscular Volume 95.2 fL (80.0-100.0); Monocytes # (auto) 0.7 10 ^3/uL (0-1.3); Monocytes % (auto) 11.6 % (0.0-12.0); Neutrophils # (auto) 4.1 10 ^3/uL (1.6-8.6); Neutrophils % (auto) 73.8 % (37.0-80.0); Nucleated Red Blood Cells % 0.1 %; Platelet Count (auto) 385 10^3/uL (140-450); Red Blood Cells 2.95 10^6/uL (4.5-5.90); Red Cell Distribution Width 14.3 % (11.8-14.3); White Blood Cell 5.6 10^3/uL (4.4-10.8)
[2024-08-16 07:53] LABS: Alkaline Phosphatase 111 U/L (46-116); Anion Gap 10 (5-15); Blood Urea Nitrogen 16 mg/dL (9-23); Calcium 9.2 mg/dL (8.7-10.4); Carbon Dioxide 25 mmol/L (20-31); Chloride 102 mmol/L (98-107); Glucose 103 mg/dL (74-106); Potassium 3.8 mmol/L (3.5-5.1); Sodium 137 mmol/L (136-145)
[2024-08-16 07:54] LABS: Albumin 3.6 g/dL (3.2-4.8)
[2024-08-16 07:55] LABS: Bilirubin, Total 0.5 mg/dL (0.2-1.0); Total Protein 6.5 g/dL (5.7-8.2)
[2024-08-16 07:56] LABS: Alanine Aminotransferase 65 U/L (7-40); Aspartate Aminotransferase 83 U/L (13-40)
[2024-08-16] MEDS: FUROSEMIDE 20 MG TAB PO SCH (10:10)
--- NOTE | 2024-08-16 10:47 | ECG ---
[facility] Test Date: 2024-08-12 Test Time: 16:50:38 Pat Name: PRASANTH GRAVES Department: Room: 0271T B Gender: M Coach: KELSIE : 1940 Requested By: JALEEL HERCULES Order Number: [id number] MD: Prasanth Carlos Measurements Intervals [place] Rate: 98 P: 229 CA: 162 QRS: -14 QRSD: 137 T: -9 QT: 387 QTc: 495 Interpretive Statements Sinus or ectopic atrial rhythm Right bundle branch block Electronically Signed On 08-16-2024 21:29:01 PST by Prasanth Carlos Please click the below link to view image of tracing.
--- NOTE | 2024-08-16 12:04 | DVHPN2 ---
Progress Note Date Seen: Aug 16, 2024 Has the PT tested + for MRSA If YES, has PT been informed?: No Medical Necessity Reason Pt with a Central, PICC or Fol: No Subjective Patient reports: No new complaints Review of Systems: HEENT:Normal, CVS:Normal, RESPIRATORY:Normal, GI:Normal, :Normal, MSK:Normal, NEURO:Normal Objective vital signs Vital Sign Date Time Temp Pulse Resp B/P (MAP) Pulse Ox O2 Delivery O2 Flow Rate FiO2 08/16/24 10:10 119/65 08/16/24 09:00 97.9 80 16 94 97.9 08/16/24 08:00 Nasal Cannula* 3 32 Total Intake and Output 08/15/24 08/15/24 08/16/24 15:00 23:00 07:00 Intake Total 100 ml 1786 ml 225 ml Output Total 550 ml 865 ml Balance 100 ml 1236 ml -640 ml medications Current Medications Medications Dose Ordered Sig/Darrius Route Start Time Stop Time Status Last Admin Dose Admin Sodium Chloride 10 ml Q8HR IV 08/01/24 22:00 08/16/24 05:01 10 ML Ondansetron HCl 4 mg Q4HP PRN IV 08/01/24 17:00 08/12/24 17:27 4 MG Docusate Sodium 100 mg BIDPRN PRN PO 08/01/24 17:00 08/05/24 13:06 100 MG Acetaminophen 650 mg Q6HP PRN PO 08/01/24 17:00 08/13/24 21:19 650 MG Nitroglycerin 0.4 mg Q5MINP PRN SL 08/01/24 17:00 Latanoprost 1 drop QPM EACHEYE 08/01/24 18:00 08/15/24 18:00 1 DROP Allopurinol 100 mg DAILY PO 08/04/24 10:00 08/16/24 10:09 100 MG Clopidogrel Bisulfate 75 mg DAILY PO 08/06/24 10:00 08/16/24 10:09 75 MG Metoclopramide HCl 10 mg Q8HR PRN IV 08/10/24 10:15 08/11/24 09:23 10 MG Lidocaine 1 patch DAILY TOP 08/12/24 10:00 08/16/24 10:10 1 PATCH Temazepam 15 mg HSPRN PRN PO 08/11/24 14:45 08/14/24 23:56 15 MG Morphine Sulfate 2 mg Q4HP PRN IV 08/11/24 15:45 08/15/24 09:10 2 MG Acetylcysteine 200 mg Q8HR NEB 08/12/24 22:00 08/16/24 06:33 200 MG Ipratropium [place] 0.5 mg Q8HR NEB 08/12/24 22:00 08/16/24 06:33 0.5 MG Apixaban 2.5 mg BID PO 08/15/24 22:00 08/16/24 10:08 2.5 MG Furosemide 40 mg DAILY IV 08/17/24 10:00 UNV Potassium Chloride 20 meq DAILY PO 08/17/24 10:00 UNV Doxycycline Monohydrate 100 mg Q12HR PO 08/16/24 22:00 UNV Examination: GENERAL:Normal, HEENT:Normal, NECK:Normal, LUNGS:Normal, LUNGS:Abnormal (on oxygen, rales), CVS:Normal, ABDOMEN:Normal, MSK:Normal, SKIN:Normal, NEURO:Normal, :Normal laboratory and microbiology Laboratory Tests 08/16/24 05:58 Test 08/16/24 05:58 Range/Units Serum Glucose 103 74-106 mg/dL Microbiology Date/Time Source Procedure Growth Status 08/04/24 16:25 Nose MRSA Screen - Final Complete 08/03/24 06:35 Blood Blood Culture - Final NO GROWTH AFTER 5 DAYS OF INCUBATION. Complete Problem List/Assessment/Plan Problem List/Assessment/Plan #1 sepsis with gallstones with s aureus: doxy #2 cad s/p stents: plavix #3 htn #4 h/o cva #5 gout #6 acute renal failure ?vasomotor nephropathy: improved #7 acute on chronic diastolic heart failure: lasix iv #8 acute resp failure: wean oxygen advance care planning- full code-time spent 19 mins Plan discussed with: Patient, Spouse My Orders My Orders Orders - JANNA PALUMBO MD Procedure Category Date Status Time Chest Portable XY 08/15/24 Resulted 12:25 Apixaban (Eliquis) PHA 08/15/24 In Process 22:00 Furosemide Injection PHA 08/16/24 Logged (Lasix Injection) 12:00 Furosemide Injection PHA 08/17/24 Logged (Lasix Injection) 10:00 Potassium Er Tablet PHA 08/16/24 Logged (Klor-Con Tablet) 12:00 Potassium Er Tablet PHA 08/17/24 Logged (Klor-Con Tablet) 10:00 Doxycycline Tablet PHA 08/16/24 Logged (Vibramycin Tablet) 22:00 Basic Metabolic Panel LAB 08/17/24 Verified 06:00 Dietary Evaluation Review Comments: 1) Advance to cardiac diet when medically feasible 2) Encourage low-fat diet upon d/c 3) Refer to outpatient RD for weight management Expected Outcomes/Goals: 1) appetite and labs to improve 2) diet to advance 3) f/u in 2-3 days Date of Service: Aug 16, 2024 Billing Provider: JANNA PALUMBO MD Common Visit Codes: [id number] INP/OBS CARE(HIGH) JANNA PALUMBO MD Aug 16, 2024 12:03
--- NOTE | 2024-08-16 15:36 | DVHPN2 ---
Progress Note - Dictate Date Seen: Aug 16, 2024 Has the PT tested + for MRSA If YES, has PT been informed?: No Medical Necessity Reason Pt with a Central, PICC or Fol: No Subjective PT WITH CHEST PAIN PLEURITIC HTN CAD RIGHT PARIETAL CVA GOUT HYPERTENSIVE HEART DISEASE vital signs Vital Sign Date Time Temp Pulse Resp B/P (MAP) Pulse Ox O2 Delivery O2 Flow Rate FiO2 08/16/24 13:00 97.9 94 16 104/63 (77) 93 97.9 08/16/24 12:51 Nasal Cannula* 3 32 Total Intake and Output 08/15/24 08/15/24 08/16/24 15:00 23:00 07:00 Intake Total 100 ml 1786 ml 225 ml Output Total 550 ml 865 ml Balance 100 ml 1236 ml -640 ml medications Current Medications Medications Dose Ordered Sig/Darrius Route Start Time Stop Time Status Last Admin Dose Admin Sodium Chloride 10 ml Q8HR IV 08/01/24 22:00 08/16/24 14:05 10 ML Ondansetron HCl 4 mg Q4HP PRN IV 08/01/24 17:00 08/12/24 17:27 4 MG Docusate Sodium 100 mg BIDPRN PRN PO 08/01/24 17:00 08/05/24 13:06 100 MG Acetaminophen 650 mg Q6HP PRN PO 08/01/24 17:00 08/13/24 21:19 650 MG Nitroglycerin 0.4 mg Q5MINP PRN SL 08/01/24 17:00 Latanoprost 1 drop QPM EACHEYE 08/01/24 18:00 08/15/24 18:00 1 DROP Allopurinol 100 mg DAILY PO 08/04/24 10:00 08/16/24 10:09 100 MG Clopidogrel Bisulfate 75 mg DAILY PO 08/06/24 10:00 08/16/24 10:09 75 MG Metoclopramide HCl 10 mg Q8HR PRN IV 08/10/24 10:15 08/11/24 09:23 10 MG Lidocaine 1 patch DAILY TOP 08/12/24 10:00 08/16/24 10:10 1 PATCH Temazepam 15 mg HSPRN PRN PO 08/11/24 14:45 08/14/24 23:56 15 MG Morphine Sulfate 2 mg Q4HP PRN IV 08/11/24 15:45 08/15/24 09:10 2 MG Acetylcysteine 200 mg Q8HR NEB 08/12/24 22:00 08/16/24 12:51 200 MG Ipratropium [place] 0.5 mg Q8HR NEB 08/12/24 22:00 08/16/24 12:51 0.5 MG Apixaban 2.5 mg BID PO 08/15/24 22:00 08/16/24 10:08 2.5 MG Furosemide 40 mg DAILY IV 08/17/24 10:00 Potassium Chloride 20 meq DAILY PO 08/17/24 10:00 Doxycycline Monohydrate 100 mg Q12HR PO 08/16/24 22:00 objective HEENT: Pupils are reactive. Funduscopic exam shows no AV nicking, no exudates, no papilledema is noted. Tympanic membranes are negative. Sinuses are nontender. Nasal passages are intact. Oral mucosa moist. Posterior pharynx without any exudates. NECK: No cervical adenopathy. No supraclavicular adenopathy. Carotid pulses are 2+ symmetrical, normal upstroke and contour. No JVD appreciated. No nuchal rigidity. Thyroid is within normal limits. PULMONARY: Clear to auscultation in all lung ko. Tympanic to percussion. Negative for rhonchi or wheezing. Negative for egophony. CARDIOVASCULAR: Regular rate. There is a soft 2/6 systolic murmur along the left sternal border. PMI is not displaced. ABDOMEN: Soft, nontender. Normal bowel sounds. No epigastric tenderness, no CVA tenderness. Liver approximately 5 cm by percussion. Spleen tip nonpalpable. However, the patient does have some mild suprapubic tenderness because of the right inguinal hernia. Stool guaiac is negative. EXTREMITIES: 2+ pulses, no edema noted. laboratory and microbiology Laboratory Tests 08/16/24 05:58 Test 08/16/24 05:58 Range/Units Serum Glucose 103 74-106 mg/dL Problem List CHEST PAIN PLEURITIC HTN CAD RIGHT PARIETAL CVA GOUT HYPERTENSIVE HEART DISEASE Assessment/Plan CTA CHEST TROPONIN NEGATIVE CT SHOWS CHOLELITHIASIS POSITIVE BOOD CX START ABX MAY PROCEED WITH SURGERY ASA II STRESS CARDIOLITE NEGATIVE FOR ISCHEMIA MAY PROCEED WITH CHOLECYSTECTOMY S/P CHOLECYSTECTOMY POD #1 RESTART PLAVIX TOLERATING PLAVIX NO BLEEDING HOLD DC PT EXTREMELY NAUSEATED AND VOMITING KUB REGLAN KUB NEGATIVE MAY DC HOME Monitor Morphine Sulfate 2 mg, IV. Dietary Evaluation Review Comments: 1) Advance to cardiac diet when medically feasible 2) Encourage low-fat diet upon d/c 3) Refer to outpatient RD for weight management Expected Outcomes/Goals: 1) appetite and labs to improve 2) diet to advance 3) f/u in 2-3 days Plan discussed with: Patient RANDY VERMA MD Aug 16, 2024 15:36
[2024-08-16] MEDS: POTASSIUM CHL 20 Meq TABLET PO ONE (17:06)
[2024-08-16] MEDS: FUROSEMIDE 40 MG/4 ML VIAL IV ONE (17:07)
[2024-08-16] MEDS: DOXYCYCLINE 100 MG TAB/CAP PO SCH (21:08)
[2024-08-16] MEDS: MELATONIN 5 MG TAB PO ONE (21:08)
[2024-08-17] VITALS (14 sets, daily range): BP systolic 103–126; BP diastolic 63–67; PULSE 70–95; RESP 14–19; TEMP 98.4–98.7; O2SAT 92–97
[2024-08-17 07:15] LABS: Anion Gap 10 (5-15); Calcium 9.1 mg/dL (8.7-10.4); Carbon Dioxide 26 mmol/L (20-31); Chloride 101 mmol/L (98-107); Potassium 3.9 mmol/L (3.5-5.1); Sodium 137 mmol/L (136-145)
[2024-08-17 07:21] LABS: BUN/Creatinine Ratio 23.2 (10.0-20.0); Blood Urea Nitrogen 22 mg/dL (9-23)
[2024-08-17 07:24] LABS: Glucose 107 mg/dL (74-106)
[2024-08-17] MEDS: FUROSEMIDE 40 MG/4 ML VIAL IV SCH (08:52)
[2024-08-17] MEDS: POTASSIUM CHL 20 Meq TABLET PO SCH (08:52)
--- NOTE | 2024-08-17 11:33 | DVHPN2 ---
Progress Note Date Seen: Aug 17, 2024 Has the PT tested + for MRSA If YES, has PT been informed?: No Medical Necessity Reason Pt with a Central, PICC or Fol: No Subjective Patient reports: No new complaints Review of Systems: HEENT:Normal, CVS:Normal, RESPIRATORY:Normal, GI:Normal, :Normal, MSK:Normal, NEURO:Normal Objective vital signs Vital Sign Date Time Temp Pulse Resp B/P (MAP) Pulse Ox O2 Delivery O2 Flow Rate FiO2 08/17/24 08:52 114/63 08/17/24 08:47 73 15 08/17/24 08:30 98.6 93 98.6 08/17/24 08:00 Nasal Cannula* 3 32 Total Intake and Output 08/16/24 08/16/24 08/17/24 15:00 23:00 07:00 Intake Total 575 ml 150 ml Output Total 600 ml Balance 575 ml -450 ml medications Current Medications Medications Dose Ordered Sig/Darrius Route Start Time Stop Time Status Last Admin Dose Admin Sodium Chloride 10 ml Q8HR IV 08/01/24 22:00 08/17/24 06:02 10 ML Ondansetron HCl 4 mg Q4HP PRN IV 08/01/24 17:00 08/12/24 17:27 4 MG Docusate Sodium 100 mg BIDPRN PRN PO 08/01/24 17:00 08/05/24 13:06 100 MG Acetaminophen 650 mg Q6HP PRN PO 08/01/24 17:00 08/13/24 21:19 650 MG Nitroglycerin 0.4 mg Q5MINP PRN SL 08/01/24 17:00 Latanoprost 1 drop QPM EACHEYE 08/01/24 18:00 08/16/24 18:00 1 DROP Allopurinol 100 mg DAILY PO 08/04/24 10:00 08/17/24 08:53 100 MG Clopidogrel Bisulfate 75 mg DAILY PO 08/06/24 10:00 08/17/24 08:52 75 MG Metoclopramide HCl 10 mg Q8HR PRN IV 08/10/24 10:15 08/11/24 09:23 10 MG Lidocaine 1 patch DAILY TOP 08/12/24 10:00 08/17/24 08:53 1 PATCH Morphine Sulfate 2 mg Q4HP PRN IV 08/11/24 15:45 08/17/24 08:47 2 MG Acetylcysteine 200 mg Q8HR NEB 08/12/24 22:00 08/16/24 22:45 200 MG Ipratropium [place] 0.5 mg Q8HR NEB 08/12/24 22:00 08/16/24 22:45 0.5 MG Apixaban 2.5 mg BID PO 08/15/24 22:00 08/17/24 08:52 2.5 MG Furosemide 40 mg DAILY IV 08/17/24 10:00 08/17/24 08:52 40 MG Potassium Chloride 20 meq DAILY PO 08/17/24 10:00 08/17/24 08:52 20 MEQ Doxycycline Monohydrate 100 mg Q12HR PO 08/16/24 22:00 08/17/24 08:53 100 MG Examination: GENERAL:Normal, HEENT:Normal, NECK:Normal, LUNGS:Normal, CVS:Normal, ABDOMEN:Normal, MSK:Normal, MSK:Abnormal (RIGHT RIB TENDERNESS), SKIN:Normal, NEURO:Normal, :Normal laboratory and microbiology Laboratory Tests 08/17/24 05:40 08/16/24 05:58 Test 08/17/24 05:40 Range/Units Serum Glucose 107 H 74-106 mg/dL Microbiology Date/Time Source Procedure Growth Status 08/04/24 16:25 Nose MRSA Screen - Final Complete 08/03/24 06:35 Blood Blood Culture - Final NO GROWTH AFTER 5 DAYS OF INCUBATION. Complete Problem List/Assessment/Plan Problem List/Assessment/Plan #1 sepsis with gallstones with s aureus: doxy #2 cad s/p stents: plavix #3 htn #4 h/o cva #5 gout #6 acute renal failure ?vasomotor nephropathy: improved #7 acute on chronic diastolic heart failure: lasix iv #8 acute resp failure: wean oxygen #9 right rib/chest pain: bone scan advance care planning- full code-time spent 19 mins Plan discussed with: Patient My Orders My Orders Orders - JANNA PALUMBO MD Procedure Category Date Status Time Furosemide Injection PHA 08/17/24 In Process (Lasix Injection) 10:00 Potassium Er Tablet PHA 08/17/24 In Process (Klor-Con Tablet) 10:00 Doxycycline Tablet PHA 08/16/24 In Process (Vibramycin Tablet) 22:00 Bone Whole Body NM 2/26/25 Verified 11:28 Hydromorphone PHA 08/17/24 Verified Injection (Dilaudid 11:30 Chest Portable XY 08/18/24 Verified 06:00 Dietary Evaluation Review Comments: 1) Advance to cardiac diet when medically feasible 2) Encourage low-fat diet upon d/c 3) Refer to outpatient RD for weight management Expected Outcomes/Goals: 1) appetite and labs to improve 2) diet to advance 3) f/u in 2-3 days Date of Service: Aug 17, 2024 Billing Provider: JANNA PALUMBO MD Common Visit Codes: [id number] INP/OBS CARE(HIGH) JANNA PALUMBO MD Aug 17, 2024 11:33
--- NOTE | 2024-08-17 12:22 | DVHPN2 ---
Progress Note - Dictate Date Seen: Aug 17, 2024 Has the PT tested + for MRSA If YES, has PT been informed?: No Medical Necessity Reason Pt with a Central, PICC or Fol: No Subjective PT WITH CHEST PAIN PLEURITIC HTN CAD RIGHT PARIETAL CVA GOUT HYPERTENSIVE HEART DISEASE vital signs Vital Sign Date Time Temp Pulse Resp B/P (MAP) Pulse Ox O2 Delivery O2 Flow Rate FiO2 08/17/24 08:52 114/63 08/17/24 08:47 73 15 08/17/24 08:30 98.6 93 98.6 08/17/24 08:00 Nasal Cannula* 3 32 Total Intake and Output 08/16/24 08/16/24 08/17/24 15:00 23:00 07:00 Intake Total 575 ml 150 ml Output Total 600 ml Balance 575 ml -450 ml medications Current Medications Medications Dose Ordered Sig/Darrius Route Start Time Stop Time Status Last Admin Dose Admin Sodium Chloride 10 ml Q8HR IV 08/01/24 22:00 08/17/24 06:02 10 ML Ondansetron HCl 4 mg Q4HP PRN IV 08/01/24 17:00 08/12/24 17:27 4 MG Docusate Sodium 100 mg BIDPRN PRN PO 08/01/24 17:00 08/05/24 13:06 100 MG Acetaminophen 650 mg Q6HP PRN PO 08/01/24 17:00 08/13/24 21:19 650 MG Nitroglycerin 0.4 mg Q5MINP PRN SL 08/01/24 17:00 Latanoprost 1 drop QPM EACHEYE 08/01/24 18:00 08/16/24 18:00 1 DROP Allopurinol 100 mg DAILY PO 08/04/24 10:00 08/17/24 08:53 100 MG Clopidogrel Bisulfate 75 mg DAILY PO 08/06/24 10:00 08/17/24 08:52 75 MG Metoclopramide HCl 10 mg Q8HR PRN IV 08/10/24 10:15 08/11/24 09:23 10 MG Lidocaine 1 patch DAILY TOP 08/12/24 10:00 08/17/24 08:53 1 PATCH Acetylcysteine 200 mg Q8HR NEB 08/12/24 22:00 08/16/24 22:45 200 MG Ipratropium [place] 0.5 mg Q8HR NEB 08/12/24 22:00 08/16/24 22:45 0.5 MG Apixaban 2.5 mg BID PO 08/15/24 22:00 08/17/24 08:52 2.5 MG Furosemide 40 mg DAILY IV 08/17/24 10:00 08/17/24 08:52 40 MG Potassium Chloride 20 meq DAILY PO 08/17/24 10:00 08/17/24 08:52 20 MEQ Doxycycline Monohydrate 100 mg Q12HR PO 08/16/24 22:00 08/17/24 08:53 100 MG Hydromorphone HCl 0.5 mg Q4HPRN PRN IV 08/17/24 11:30 UNV objective HEENT: Pupils are reactive. Funduscopic exam shows no AV nicking, no exudates, no papilledema is noted. Tympanic membranes are negative. Sinuses are nontender. Nasal passages are intact. Oral mucosa moist. Posterior pharynx without any exudates. NECK: No cervical adenopathy. No supraclavicular adenopathy. Carotid pulses are 2+ symmetrical, normal upstroke and contour. No JVD appreciated. No nuchal rigidity. Thyroid is within normal limits. PULMONARY: Clear to auscultation in all lung ko. Tympanic to percussion. Negative for rhonchi or wheezing. Negative for egophony. CARDIOVASCULAR: Regular rate. There is a soft 2/6 systolic murmur along the left sternal border. PMI is not displaced. ABDOMEN: Soft, nontender. Normal bowel sounds. No epigastric tenderness, no CVA tenderness. Liver approximately 5 cm by percussion. Spleen tip nonpalpable. However, the patient does have some mild suprapubic tenderness because of the right inguinal hernia. Stool guaiac is negative. EXTREMITIES: 2+ pulses, no edema noted. laboratory and microbiology Laboratory Tests 08/17/24 05:40 08/16/24 05:58 Test 08/17/24 05:40 Range/Units Serum Glucose 107 H 74-106 mg/dL Problem List CHEST PAIN PLEURITIC HTN CAD RIGHT PARIETAL CVA GOUT HYPERTENSIVE HEART DISEASE Assessment/Plan CTA CHEST TROPONIN NEGATIVE CT SHOWS CHOLELITHIASIS POSITIVE BOOD CX START ABX MAY PROCEED WITH SURGERY ASA II STRESS CARDIOLITE NEGATIVE FOR ISCHEMIA MAY PROCEED WITH CHOLECYSTECTOMY S/P CHOLECYSTECTOMY POD #1 RESTART PLAVIX TOLERATING PLAVIX NO BLEEDING HOLD DC PT EXTREMELY NAUSEATED AND VOMITING KUB REGLAN KUB NEGATIVE MAY DC HOME Monitor Morphine Sulfate 2 mg, IV. DC HOME FOLLOWUP IN 1 WEEK Dietary Evaluation Review Comments: 1) Advance to cardiac diet when medically feasible 2) Encourage low-fat diet upon d/c 3) Refer to outpatient RD for weight management Expected Outcomes/Goals: 1) appetite and labs to improve 2) diet to advance 3) f/u in 2-3 days Plan discussed with: Patient, Spouse RANDY VERMA MD Aug 17, 2024 12:22
[2024-08-17] MEDS: HYDROmorphone HCL 2 MG/ML VL/or syr IV PRN (13:23)
--- NOTE | 2024-08-17 16:09 | DVH ---
EXAM: NM BONE WHOLE BODY History: RIB/BONE PAIN Comparison Study: None available TECHNIQUE: At approximately 3 hours following intravenous administration 25.3 mCi of Tc-99m MDP, ante rior and posterior whole body planar images were obtained. FINDINGS: No suspicious foci of tracer activity to suggest osteoblastic metastases. Minimal low level uptake al randa the right costochondral junctions. Physiologic radiotracer distribution in bilateral kidneys and urinary bladder. Degenerative changes in the left shoulder, thoracic spine, pelvis, wrists, kness, left ankle, and rig ht 1st MTP joint. IMPRESSION: 1. No scintigraphic evidence of osteoblastic metastases. 2. Minimal low level uptake along the right costochondral junctions may reflect costochondritis.
[2024-08-18] VITALS (11 sets, daily range): BP systolic 111–120; BP diastolic 69–73; PULSE 64–94; RESP 18–20; TEMP 97.6–99; O2SAT 90–98
--- NOTE | 2024-08-18 11:24 | DVHPN2 ---
Progress Note - Dictate Date Seen: Aug 18, 2024 Has the PT tested + for MRSA If YES, has PT been informed?: No Medical Necessity Reason Pt with a Central, PICC or Fol: No Subjective PT WITH CHEST PAIN PLEURITIC HTN CAD RIGHT PARIETAL CVA GOUT HYPERTENSIVE HEART DISEASE vital signs Vital Sign Date Time Temp Pulse Resp B/P (MAP) Pulse Ox O2 Delivery O2 Flow Rate FiO2 08/18/24 09:14 64 18 120/70 08/18/24 09:00 99.0 93 99.0 08/18/24 08:12 Nasal Cannula* 2 28 Total Intake and Output 08/17/24 08/17/24 08/18/24 15:00 23:00 07:00 Intake Total 800 ml 300 ml Output Total 400 ml 100 ml Balance 400 ml 200 ml medications Current Medications Medications Dose Ordered Sig/Darrius Route Start Time Stop Time Status Last Admin Dose Admin Sodium Chloride 10 ml Q8HR IV 08/01/24 22:00 08/18/24 06:17 10 ML Ondansetron HCl 4 mg Q4HP PRN IV 08/01/24 17:00 08/12/24 17:27 4 MG Docusate Sodium 100 mg BIDPRN PRN PO 08/01/24 17:00 08/05/24 13:06 100 MG Acetaminophen 650 mg Q6HP PRN PO 08/01/24 17:00 08/17/24 17:35 650 MG Nitroglycerin 0.4 mg Q5MINP PRN SL 08/01/24 17:00 Latanoprost 1 drop QPM EACHEYE 08/01/24 18:00 08/17/24 18:00 1 DROP Allopurinol 100 mg DAILY PO 08/04/24 10:00 08/18/24 09:15 100 MG Clopidogrel Bisulfate 75 mg DAILY PO 08/06/24 10:00 08/18/24 09:14 75 MG Metoclopramide HCl 10 mg Q8HR PRN IV 08/10/24 10:15 08/11/24 09:23 10 MG Lidocaine 1 patch DAILY TOP 08/12/24 10:00 08/18/24 09:15 1 PATCH Acetylcysteine 200 mg Q8HR NEB 08/12/24 22:00 08/18/24 08:12 200 MG Ipratropium [place] 0.5 mg Q8HR NEB 08/12/24 22:00 08/18/24 08:12 0.5 MG Apixaban 2.5 mg BID PO 08/15/24 22:00 08/18/24 09:15 2.5 MG Furosemide 40 mg DAILY IV 08/17/24 10:00 08/18/24 09:14 40 MG Potassium Chloride 20 meq DAILY PO 08/17/24 10:00 08/18/24 09:14 20 MEQ Doxycycline Monohydrate 100 mg Q12HR PO 08/16/24 22:00 08/18/24 09:15 100 MG Hydromorphone HCl 0.5 mg Q4HPRN PRN IV 08/17/24 11:30 08/18/24 09:14 0.5 MG Acetaminophen/ Hydrocodone Bitart 1 tab Q6HP PRN PO 08/17/24 21:15 objective HEENT: Pupils are reactive. Funduscopic exam shows no AV nicking, no exudates, no papilledema is noted. Tympanic membranes are negative. Sinuses are nontender. Nasal passages are intact. Oral mucosa moist. Posterior pharynx without any exudates. NECK: No cervical adenopathy. No supraclavicular adenopathy. Carotid pulses are 2+ symmetrical, normal upstroke and contour. No JVD appreciated. No nuchal rigidity. Thyroid is within normal limits. PULMONARY: Clear to auscultation in all lung ko. Tympanic to percussion. Negative for rhonchi or wheezing. Negative for egophony. CARDIOVASCULAR: Regular rate. There is a soft 2/6 systolic murmur along the left sternal border. PMI is not displaced. ABDOMEN: Soft, nontender. Normal bowel sounds. No epigastric tenderness, no CVA tenderness. Liver approximately 5 cm by percussion. Spleen tip nonpalpable. However, the patient does have some mild suprapubic tenderness because of the right inguinal hernia. Stool guaiac is negative. EXTREMITIES: 2+ pulses, no edema noted. laboratory and microbiology Laboratory Tests 08/17/24 05:40 08/16/24 05:58 Test 08/17/24 05:40 Range/Units Serum Glucose 107 H 74-106 mg/dL Problem List CHEST PAIN PLEURITIC HTN CAD RIGHT PARIETAL CVA GOUT HYPERTENSIVE HEART DISEASE Assessment/Plan CTA CHEST TROPONIN NEGATIVE CT SHOWS CHOLELITHIASIS POSITIVE BOOD CX START ABX MAY PROCEED WITH SURGERY ASA II STRESS CARDIOLITE NEGATIVE FOR ISCHEMIA MAY PROCEED WITH CHOLECYSTECTOMY S/P CHOLECYSTECTOMY POD #1 RESTART PLAVIX TOLERATING PLAVIX NO BLEEDING HOLD DC PT EXTREMELY NAUSEATED AND VOMITING KUB REGLAN KUB NEGATIVE MAY DC HOME Monitor Morphine Sulfate 2 mg, IV. DC HOME FOLLOWUP IN 1 WEEK BONE SCAN CONSISTENT WITH COSTOCHONDRITIS DC HOME Dietary Evaluation Review Comments: 1) Advance to cardiac diet when medically feasible 2) Encourage low-fat diet upon d/c 3) Refer to outpatient RD for weight management Expected Outcomes/Goals: 1) appetite and labs to improve 2) diet to advance 3) f/u in 2-3 days Plan discussed with: Patient RANDY VERMA MD Aug 18, 2024 11:24
--- NOTE | 2024-08-18 11:29 | DVH ---
CHEST RADIOGRAPH Indication: CHF Technique: Single frontal view of the chest was obtained Comparison: XY CHEST PORTABLE on DOS: 08/15/24, XY CHEST PORTABLE on DOS: 08/12/24, XY CHEST PORTABLE o n DOS: 08/05/24, XY CHEST PORTABLE on DOS: 08/04/24, XY CHEST PORTABLE on DOS: 08/01/24 FINDINGS: Lines and Tubes: None Lungs: No focal consolidation. Pleura: Small bilateral pleural effusions. No pneumothorax. Cardiomediastinal contours: Cardiomegaly. Bones: No acute osseous abnormality. IMPRESSION: Cardiomegaly with small bilateral pleural effusions.
--- NOTE | 2024-08-18 11:31 | DVHDS2 ---
Discharge Summary Date of Admission Aug 01, 2024 at 16:55 Date of Discharge: Aug 18, 2024 Admitting Diagnosis ACUTE ABD PAIN Wounds: LAP NILO Labs/Diagnostic Data: Laboratory Results Test 08/17/24 05:40 08/16/24 05:58 08/03/24 06:35 08/02/24 10:23 Sodium Level 137 mmol/L (136-145) Potassium Level 3.9 mmol/L (3.5-5.1) Chloride Level 101 mmol/L (98-107) Carbon Dioxide Level 26 mmol/L (20-31) Anion Gap 10 (5-15) Blood Urea Nitrogen 22 mg/dL (9-23) Creatinine 0.95 mg/dL (0.700-1.30) Glomerular Filtration Rate Calc 80 mL/min (>90) BUN/Creatinine Ratio 23.2 (10.0-20.0) Serum Glucose 107 mg/dL (74-106) Calcium Level 9.1 mg/dL (8.7-10.4) White Blood Count 5.6 10^3/uL (4.4-10.8) Red Blood Count 2.95 10^6/uL (4.5-5.90) Hemoglobin 9.7 g/dL (13.5-17.5) Hematocrit 28.1 % (41.0-53.0) Mean Corpuscular Volume 95.2 fL (80.0-100.0) Mean Corpuscular Hemoglobin 32.8 pg (28.0-32.0) Mean Corpuscular Hemoglobin Concent 34.5 g/dL (32.0-36.0) Red Cell Distribution Width 14.3 % (11.8-14.3) Platelet Count 385 10^3/uL (140-450) Mean Platelet Volume 7.2 fL (6.9-10.8) Neutrophils (%) (Auto) 73.8 % (37.0-80.0) Lymphocytes (%) (Auto) 12.6 % (10.0-50.0) Monocytes (%) (Auto) 11.6 % (0.0-12.0) Eosinophils (%) (Auto) 1.4 % (0.0-7.0) Basophils (%) (Auto) 0.6 % (0.0-2.0) Neutrophils # (Auto) 4.1 10 ^3/uL (1.6-8.6) Lymphocytes # (Auto) 0.7 10 ^3/uL (0.4-5.4) Monocytes # (Auto) 0.7 10 ^3/uL (0-1.3) Eosinophils # (Auto) 0.1 10 ^3/uL (0-0.8) Basophils # (Auto) 0 10 ^3/uL (0-0.2) Nucleated Red Blood Cells 0.1 % Total Bilirubin 0.5 mg/dL (0.2-1.0) Aspartate Amino Transferase (AST) 83 U/L (13-40) Alanine Aminotransferase (ALT) 65 U/L (7-40) Alkaline Phosphatase 111 U/L (46-116) Total Protein 6.5 g/dL (5.7-8.2) Albumin 3.6 g/dL (3.2-4.8) Prothrombin Time 12.0 sec (9.3-11.8) Prothrombin Time INR 1.15 (0.9-1.15) Activated Partial Thromboplast Time 36.0 SEC (24.5-34.5) Random Vancomycin Level 14.8 ug/mL (5-10) Urine Color Light-orange (Yellow) Urine Clarity Clear (Clear) Urine pH 6.0 (5.0-9.0) Urine Specific [place] > 1.050 (1.001-1.035) Urine Protein 1+ (Negative) Urine Ketones Negative (Negative) Urine Blood Negative /uL (Negative) Urine Nitrite Negative (Negative) Urine Bilirubin Negative (Negative) Urine Urobilinogen Normal mg/dL (Negative) Urine Leukocyte Esterase Negative /uL (Negative) Urine RBC 5 /hpf (0 - 3) Urine Microscopic WBC < 1 /HPF (0-3) Urine Squamous Epithelial Cells Few /hpf (<5) Urine Bacteria None seen /hpf (None Seen) Urine Glucose Normal mg/dL (Normal) Test 08/01/24 11:13 Lactic Acid Level 1.5 mmol/L (0.4-2.0) Troponin I High Sensitivity 9 ng/L (</=54) Other Laboratory Tests 08/17/24 05:40 08/16/24 05:58 Brief Hx & Hospital Course: CHEST PAIN PLEURITIC HTN CAD RIGHT PARIETAL CVA GOUT HYPERTENSIVE HEART DISEASE Assessment/Plan CTA CHEST TROPONIN NEGATIVE CT SHOWS CHOLELITHIASIS POSITIVE BOOD CX START ABX MAY PROCEED WITH SURGERY ASA II STRESS CARDIOLITE NEGATIVE FOR ISCHEMIA MAY PROCEED WITH CHOLECYSTECTOMY S/P CHOLECYSTECTOMY POD #1 RESTART PLAVIX TOLERATING PLAVIX NO BLEEDING HOLD DC PT EXTREMELY NAUSEATED AND VOMITING KUB REGLAN KUB NEGATIVE MAY DC HOME Monitor Morphine Sulfate 2 mg, IV. DC HOME FOLLOWUP IN 1 WEEK BONE SCAN CONSISTENT WITH COSTOCHONDRITIS DC HOME Consults/Reason for consult SURGICAL Operations or Procedures LAB NILO Condition at Discharge: Good Final Diagnosis/Problems List CHEST PAIN PLEURITIC HTN CAD RIGHT PARIETAL CVA GOUT HYPERTENSIVE HEART DISEASE COSTOCHRONDRITIS Discharge Disposition: Home Discharge Instruct/Medications Diet: Cardiac 2g Na,low cholest Follow Up/Referral: 1 WEEK HOME HEALTH Medications: HOME MEDS PLEASE CALL IN NAPROSYN 550 MG PO BID X 5 DATS Discharge Statement: "Patient was advised to return to the ER or call 911 if any headaches, dizziness, shortness of breath, chest pain, abdominal pain, bleeding, fevers, or worsening of medical condition. Patient was counseled about treatment plan, medications, possible side effects, patientverbalized understanding. All questions were answered to the best of my ability. This discharge took greater then 30 minutes in planning, reviewing documentation, counseling the patient, and discussing with other team members." ASSESSMENT ASSESSMENT Assessment RANDY VERMA MD Aug 18, 2024 11:31
[2024-08-18] MEDS ORDERED: KETOROLAC TROMETH 60MG/2ML VIAL IM ONE (11:45)
[2024-08-18] MEDS: HYDROcodone-ACET 7.5/325MG TAB PO PRN (14:18)
[2024-08-18] MEDS ORDERED: FURO1TAB31 PO (14:23)
[2024-08-18] MEDS ORDERED: POTA-180 PO (14:23)
[2024-08-18] MEDS ORDERED: HYDR1TAB97 PO (14:23)
--- NOTE | 2024-08-18 14:26 | DVHPN2 ---
Progress Note Date Seen: Aug 18, 2024 Has the PT tested + for MRSA If YES, has PT been informed?: No Medical Necessity Reason Pt with a Central, PICC or Fol: No Subjective Patient reports: No new complaints Review of Systems: HEENT:Normal, CVS:Normal, RESPIRATORY:Normal, GI:Normal, :Normal, MSK:Normal, NEURO:Normal Objective vital signs Vital Sign Date Time Temp Pulse Resp B/P (MAP) Pulse Ox O2 Delivery O2 Flow Rate FiO2 08/18/24 13:00 98.5 86 18 115/71 (86) 96 98.5 08/18/24 08:12 Nasal Cannula* 2 28 Total Intake and Output 08/17/24 08/17/24 08/18/24 15:00 23:00 07:00 Intake Total 800 ml 300 ml Output Total 400 ml 100 ml Balance 400 ml 200 ml medications Current Medications Medications Dose Ordered Sig/Darrius Route Start Time Stop Time Status Last Admin Dose Admin Sodium Chloride 10 ml Q8HR IV 08/01/24 22:00 08/18/24 06:17 10 ML Ondansetron HCl 4 mg Q4HP PRN IV 08/01/24 17:00 08/12/24 17:27 4 MG Docusate Sodium 100 mg BIDPRN PRN PO 08/01/24 17:00 08/05/24 13:06 100 MG Acetaminophen 650 mg Q6HP PRN PO 08/01/24 17:00 08/17/24 17:35 650 MG Nitroglycerin 0.4 mg Q5MINP PRN SL 08/01/24 17:00 Latanoprost 1 drop QPM EACHEYE 08/01/24 18:00 08/17/24 18:00 1 DROP Allopurinol 100 mg DAILY PO 08/04/24 10:00 08/18/24 09:15 100 MG Clopidogrel Bisulfate 75 mg DAILY PO 08/06/24 10:00 08/18/24 09:14 75 MG Metoclopramide HCl 10 mg Q8HR PRN IV 08/10/24 10:15 08/11/24 09:23 10 MG Lidocaine 1 patch DAILY TOP 08/12/24 10:00 08/18/24 09:15 1 PATCH Acetylcysteine 200 mg Q8HR NEB 08/12/24 22:00 08/18/24 08:12 200 MG Ipratropium [place] 0.5 mg Q8HR NEB 08/12/24 22:00 08/18/24 08:12 0.5 MG Apixaban 2.5 mg BID PO 08/15/24 22:00 08/18/24 09:15 2.5 MG Furosemide 40 mg DAILY IV 08/17/24 10:00 08/18/24 09:14 40 MG Potassium Chloride 20 meq DAILY PO 08/17/24 10:00 08/18/24 09:14 20 MEQ Doxycycline Monohydrate 100 mg Q12HR PO 08/16/24 22:00 08/18/24 09:15 100 MG Hydromorphone HCl 0.5 mg Q4HPRN PRN IV 08/17/24 11:30 08/18/24 09:14 0.5 MG Acetaminophen/ Hydrocodone Bitart 1 tab Q6HP PRN PO 08/17/24 21:15 08/18/24 14:18 1 TAB Examination: GENERAL:Normal, HEENT:Normal, NECK:Normal, LUNGS:Normal, CVS:Normal, ABDOMEN:Normal, MSK:Normal, SKIN:Normal, NEURO:Normal, :Normal laboratory and microbiology Laboratory Tests 08/17/24 05:40 08/16/24 05:58 Test 08/17/24 05:40 Range/Units Serum Glucose 107 H 74-106 mg/dL Microbiology Date/Time Source Procedure Growth Status 08/04/24 16:25 Nose MRSA Screen - Final Complete 08/03/24 06:35 Blood Blood Culture - Final NO GROWTH AFTER 5 DAYS OF INCUBATION. Complete Problem List/Assessment/Plan Problem List/Assessment/Plan #1 sepsis with gallstones with s aureus: doxy #2 cad s/p stents: plavix #3 htn #4 h/o cva #5 gout #6 acute renal failure ?vasomotor nephropathy: improved #7 acute on chronic diastolic heart failure: lasix iv #8 acute resp failure: wean oxygen #9 right rib/chest pain: costochondritis dc planning to home today advance care planning- full code-time spent 19 mins Plan discussed with: Patient My Orders My Orders Orders - JANNA PALUMBO MD Procedure Category Date Status Time Discharge DISCHARGE 08/18/24 Transmitted 14:16 Abg W/ Co-Ox RT 08/18/24 Logged 14:16 * 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
[2024-08-18 15:08] LABS: Base Excess 5.8 mmol/L (-2.0-3.0)
== END 2024-08-18 18:40 | disposition home health service (06) | DRG 853 ==
LOC: ER 07:55 → TELE 16:55 → TELE-WESTW 16:56 → TELE 08-02 15:55 → WEST WING 08-02 15:59 → OVERFLOW 08-03 13:36 → TELE-WESTW 08-03 13:44 → OVERFLOW 08-04 14:44 → ICU CENTRL 08-04 16:33 → TELE-WESTW 08-07 10:24
PROVIDERS: ADMIT Internal Medicine; ATTEND Internal Medicine
PROC: 0FT44ZZ Resection of Gallbladder, Percutaneous Endoscopic Approach (ICD-10-PCS; principal; 2024-08-04 11:14)
DX: A41.9 Sepsis, unspecified organism (principal); I50.33 Acute on chronic diastolic (congestive) heart failure; J96.00 Acute respiratory failure, unspecified whether with hypoxia or hypercapnia; N17.0 Acute kidney failure with tubular necrosis; K80.10 Calculus of gallbladder with chronic cholecystitis without obstruction; I25.10 Atherosclerotic heart disease of native coronary artery without angina pectoris; M10.9 Gout, unspecified; K21.9 Gastro-esophageal reflux disease without esophagitis; E78.5 Hyperlipidemia, unspecified; I11.0 Hypertensive heart disease with heart failure; M94.0 Chondrocostal junction syndrome [Tietze]; K59.00 Constipation, unspecified; K66.0 Peritoneal adhesions (postprocedural) (postinfection); I25.2 Old myocardial infarction; Z79.02 Long term (current) use of antithrombotics/antiplatelets; Z86.73 Personal history of transient ischemic attack (TIA), and cerebral infarction without residual deficits; Z95.5 Presence of coronary angioplasty implant and graft; Z79.899 Other long term (current) drug therapy
CPT/HCPCS: 36415; 36600; 71045; 71275; 72148; 74018; 74176; 76705; 76775; 78306; 80048; 80053; 80202; 81001; 82805; 83605; 84484; 85025; 85610; 85730; 86850; 86900; 86901; 87040; 87077; 87081; 87186; 93005; 94640; 97110; 97116; 97163; 97530; 99291; G0378; J0690; J1100; J1885; J2003; J2405; J2470; J3490

== ENCOUNTER → 2024-08-22 | Outpatient (CLI) | payer MEDICARE, BC ==
[~2024-08-22] MED LIST changes: +FURO1TAB31 PO; +HYDR1TAB97 PO; +POTA-180 PO; -TRIA37.587 PO
--- NOTE | 2024-08-22 11:26 | DVH ---
XY CHEST TWO VIEWS ROUTINE CLINICAL HISTORY: SOB COMPARISON: XY CHEST TWO VIEWS ROUTINE on DOS: 06/06/24, XY CHEST TWO VIEWS ROUTINE on DOS: 04/11/24, XY CHEST TWO VIEWS ROUTINE on DOS: 11/21/22 TECHNIQUE: Frontal and lateral view of the chest was obtained FINDINGS: Lines and Tubes: None Lungs: No focal consolidation. Pleura: Small right pleural effusion. Trace left pleural effusion. Cardiomediastinal contours: Unremarkable Bones: No acute osseous abnormality. IMPRESSION: Small right pleural effusion. Trace left pleural effusion.
== END | disposition home or self-care (01) ==
LOC: Rad HDHVI 10:42
PROVIDERS: ATTEND Internal Medicine Cardiovascular Disease
DX: J90 Pleural effusion, not elsewhere classified (principal); R06.02 Shortness of breath
CPT/HCPCS: 71046

== ENCOUNTER → 2024-08-23 | Outpatient (CLI) | payer MEDICARE, BC ==
[~2024-08-23] VITALS: Ht 182.9 cm; Wt 85.3 kg
--- NOTE | 2024-08-26 14:14 | DVHSR ---
APPROVED REPORT Indication CVA/TIA Dyspnea Atrial Fibrillation Hypertension/HCVD Status/Post UT Congestive Heart Failure Cardiac Risk Factors Hypertension: Hypercholesterolemia Hyperlipidemia Pretest Chest Pain No chest Pain Procedure The above named patient was injected with 32.9 mCi of Tc99m tagged red blood cells. Gated imaging was then performed in left anterior oblique projections. Findings Calculated LV Ejection Fraction is 59%. Impression EF >55%
== END | disposition home or self-care (01) ==
LOC: Rad HDHVI 08:35
PROVIDERS: ATTEND Internal Medicine Cardiovascular Disease
DX: I11.0 Hypertensive heart disease with heart failure (principal); I50.33 Acute on chronic diastolic (congestive) heart failure; I82.90 Acute embolism and thrombosis of unspecified vein; I21.4 Non-ST elevation (NSTEMI) myocardial infarction; I25.2 Old myocardial infarction; I48.91 Unspecified atrial fibrillation; E78.00 Pure hypercholesterolemia, unspecified; I45.10 Unspecified right bundle-branch block; Z95.820 Peripheral vascular angioplasty status with implants and grafts
CPT/HCPCS: 78472; A9505; 96374; 96375

== ENCOUNTER 2024-11-18 09:51 | Outpatient (CLI) | payer MEDICARE, BC ==
--- NOTE | 2024-11-18 11:40 | DVH ---
XY CHEST TWO VIEWS ROUTINE CLINICAL HISTORY: SOB COMPARISON: XY CHEST TWO VIEWS ROUTINE on DOS: 08/22/24, XY CHEST TWO VIEWS ROUTINE on DOS: 06/06/24, X Y CHEST TWO VIEWS ROUTINE on DOS: 04/11/24, XY CHEST TWO VIEWS ROUTINE on DOS: 11/21/22 TECHNIQUE: Frontal and lateral view of the chest was obtained FINDINGS: Lines and Tubes: None Lungs: No focal consolidation. Pleura: No effusion. No pneumothorax. Cardiomediastinal contours: Unremarkable Bones: No acute osseous abnormality. IMPRESSION: No acute cardiopulmonary disease.
== END 2024-11-18 17:00 | disposition home or self-care (01) ==
LOC: Rad HDHVI 09:51
PROVIDERS: ATTEND Internal Medicine Cardiovascular Disease
DX: R06.02 Shortness of breath (principal)
CPT/HCPCS: 71046

== ENCOUNTER 2024-11-22 08:40 | Outpatient (CLI) | payer MEDICARE, BC | END 2024-11-22 17:00 | disposition home or self-care (01) | LOC: Rad HDHVI 08:40 | PROVIDERS: ATTEND Internal Medicine Cardiovascular Disease | DX: I08.0 Rheumatic disorders of both mitral and aortic valves (principal) | CPT/HCPCS: 93306 ==

== ENCOUNTER 2025-04-12 13:48 | Outpatient (CLI) | payer MEDICARE, BC ==
[~2025-04-12] VITALS: Ht 182.9 cm; Wt 88.5 kg
--- NOTE | 2025-04-18 10:48 | DVHSR ---
APPROVED REPORT Exam: Nuclear Stress Test Indication: CAD Ht: 6 ft 0 in Wt: 195 lbs BSA: 2.11 m2 HR: 78 bpm BP: 122/78 mmHg BMI: 26.44 Rhythm: NSR, RBBB, Left anterior fascicular block Medical History Medical History: [place], Stent, HTN, Hypercholesterolemia, Atrial Fibrillation, Angina, CHF, Dyspnea Medications: Zocor, Allopurinol, Pantoprazole, Nitro stat, Eliquis, [place], Potassium, Trelegy, [place] Allergies: Iodine Stress Test Details Stress Test: Exercise stress testing was performed using a modified Tj protocol. HR Resting HR: 78 bpmMax Heart Rate (APMHR): 137.282895 bpm Max HR Achieved: 125 bpmTarget HR (85% APMHR): 116.971302 bpm % of APMHR: 91.24 Recovery HR: 83 bpm HR response to stress: Normal HR response to stress BP Resting BP: 122/78 mmHg Max BP: 195/49 mmHg Recovery BP: 125/61 mmHg BP response to stress: Normal resting BP- Exaggerated response ECG Resting ECG: Sinus Rhythm Stress ECG: Sinus Tachycardia Arrhythmia: Bigeminy PVCs, PVC pairs Recovery ECG: Sinus Rhythm Clinical Reason for Termination: Fatigue, Dyspnea Stress Symptoms: Fatigue, Dyspnea Exercise duration: 4 min 25 sec Exercise capacity: 3.50 METs Symptoms improved during recovery. Stress ECG Conclusion EF 40% FIXED INFERIOR DEFECT MILD LATERAL WALL PARTIAL REVERSIBILITY NM EXAM: Myocardial Perfusion REST/STRESS Imaging Protocol: Rest Tc-99m/Stress Tc-99m 1 day Resting Data Rest SPECT myocardial perfusion imaging was performed in supine position 30 minutes following the int ravenous injection of 10.86 mCi of Tc-99m Sestamibi. Time of rest injection: 1403 Date: 04/12/2025 Time of rest imagin Date: 04/12/2025 Administration Route: IV Administration Site: Left AC Exercise Stress At peak stress, the patient was injected intravenously with 32.8 mCi of Tc-99m Sestamibi. Time of stress injection: 1506 Date: 04/12/2025 Time of stress imagin Date: 04/12/2025 Administration Route: IV Administration Site: Left AC Heart Rate at time of stress injection: 125 bpm. Patient continued to exercise for 0.5 minute(s). Gated Stress SPECT was performed 15 minutes after stress injection. The images were gated to evaluate regional wall motion and calculate left ventricular ejection fracti on. Comments Cardiolite injection at 4 minutes into test. Nuclear Conclusion EF 40% FIXED INFERIOR DEFECT MILD LATERAL WALL PARTIAL REVERSIBILITY
== END 2025-04-12 17:00 | disposition home or self-care (01) ==
LOC: Rad HDHVI 13:48
PROVIDERS: ATTEND Internal Medicine Cardiovascular Disease
DX: I45.2 Bifascicular block (principal); I11.0 Hypertensive heart disease with heart failure; I50.33 Acute on chronic diastolic (congestive) heart failure; I25.110 Atherosclerotic heart disease of native coronary artery with unstable angina pectoris; I49.3 Ventricular premature depolarization; R00.0 Tachycardia, unspecified; I25.10 Atherosclerotic heart disease of native coronary artery without angina pectoris; I25.2 Old myocardial infarction; I48.91 Unspecified atrial fibrillation; I70.0 Atherosclerosis of aorta; E78.00 Pure hypercholesterolemia, unspecified; R06.02 Shortness of breath; R07.89 Other chest pain; Z98.61 Coronary angioplasty status; Z88.8 Allergy status to other drugs, medicaments and biological substances
CPT/HCPCS: 78452; 93017; A9500; 96374